=== PATIENT | female | born 1995 | race Caucasian/White ===

== ENCOUNTER 2016-11-20 14:48 | Emergency (ER) | payer OTHER ==
--- NOTE | 2016-11-20 15:23 | ER Document Report ---
ED Medical Screen (RME) - General Chief Complaint: Abdominal Pain Stated Complaint: ABDOMINAL PAIN Time seen by provider: 15:18 Mode of Arrival: Wheelchair Information source: Patient Notes: 21 yo female presents to ed for abdominal pain nausea vomiting and she is . LMP 09/28/16 TRAVEL OUTSIDE OF THE [place] IN LAST 30 DAYS: No - HPI Onset: Other - 3 days Onset/Duration: Persistent, Worse Quality of pain: Sharp Severity: Moderate Pain Level: 3 Associated Symptoms: Abdominal pain, Nausea, Vomiting, Other - , no urine or stool in 2 days Exacerbated by: Denies Relieved by: Denies Similar symptoms previously: Yes Recently seen / treated by doctor: No - Related Data Smoking: Non-smoker Frequency of alcohol use: None Drug Abuse: None Allergies/Adverse Reactions: Penicillins Allergy (Verified 09/12/15 01:20) Past Medical History Psychiatric Medical History: Reports: Hx Depression - and anxiety - Immunizations Hx Diphtheria, Pertussis, Tetanus Vaccination: Yes
[2016-11-20] MEDS ORDERED: NORMAL SALINE 1000 ML 1,000 ML IV PRN (15:24)
[2016-11-20] MEDS ORDERED: DIPHENHYDRAMINE HCL 50 MG/ML VIAL IV ONE ×2 (15:36→16:31)
[2016-11-20] MEDS ORDERED: METOCLOPRAMIDE HCL INJ/PF 10 MG/2 ML SDV IV ONE (15:36)
--- NOTE | 2016-11-20 15:42 | ER Document Report ---
ED GI/ - General Chief Complaint: Urinary Retention Stated Complaint: ABDOMINAL PAIN Mode of Arrival: Wheelchair Information source: Patient Notes: Patient presents stating that she is about 7 weeks . Patient states she 's had nausea and vomiting for the past week. Patient is uncertain how many times she has vomited today due to the number. Patient states she has had some blood in her emesis. Patient complains of lower abdominal pain for the past 3 days. Patient denies any fever, diarrhea, or urinary symptoms. Patient denies any vaginal bleeding. Patient states she's had no urine output for the past 2 days due to inability to keep fluids down orally. TRAVEL OUTSIDE OF THE [place] IN LAST 30 DAYS: No - HPI Patient complains to provider of: Pelvic pain, . No: Vaginal bleeding Onset: Last week Timing/Duration: Persistent Quality of pain: Cramping Pain Level: 3 Location: Pelvis Vaginal bleeding (Compared to normal period): None Sexual history: Active Associated symptoms: Loss of appetite, Nausea, Vomiting. denies: Chest pain, Dysuria, Fever, Urinary hesitancy, Urinary frequency, Urinary retention, Urinary urgency Exacerbated by: Denies Relieved by: Denies Similar symptoms previously: Yes Recently seen / treated by doctor: No - Related Data Allergies/Adverse Reactions: Penicillins Allergy (Verified 11/20/16 15:21) Past Medical History - General Information source: Patient Last Menstrual Period: 09/28/16 - Social History Smoking Status: Never Smoker Chew tobacco use (# tins/day): No Frequency of alcohol use: None Drug Abuse: None Occupation: none Lives with: Family Family History: Reviewed & Not Pertinent Patient has suicidal ideation: No Patient has homicidal ideation: No Psychiatric Medical History: Reports: Hx Anxiety, Hx Depression - and anxiety Surgical Hx: Negative - Immunizations Hx Diphtheria, Pertussis, Tetanus Vaccination: Yes Review of Systems - Review of Systems Constitutional: No symptoms reported. denies: Recent illness EENT: No symptoms reported Cardiovascular: No symptoms reported. denies: Chest pain Respiratory: No symptoms reported. denies: Cough, Short of breath Gastrointestinal: Abdominal pain, Nausea, Vomiting, Poor fluid intake, Blood in vomit. denies: Diarrhea Genitourinary: Other - Decreased urine output. denies: Dysuria, Flank pain Female Genitourinary: . denies: Vaginal bleeding Musculoskeletal: No symptoms reported. denies: Back pain, Muscle pain, Neck pain Skin: No symptoms reported Hematologic/Lymphatic: No symptoms reported Neurological/Psychological: No symptoms reported Physical Exam - Vital signs Vitals: Temp Pulse Resp BP Pulse Ox 98.3 F 120 H 20 135/75 H 100 11/20/16 15:21 11/20/16 15:21 11/20/16 15:21 11/20/16 15:21 11/20/16 15:21 Interpretation: No: Tachycardic Notes: apical pulse 100 - General General appearance: Appears well, Alert In distress: None - HEENT Head: Normocephalic, Atraumatic Eyes: Normal Nasal: Normal Mouth/Lips: Normal Mucous membranes: Dry Neck: Normal, Supple - Respiratory Respiratory status: No respiratory distress Chest status: Nontender Breath sounds: Normal. No: Rales, Rhonchi, Stridor, Wheezing Chest palpation: Normal - Cardiovascular Rhythm: Regular - Apical pulse 100 Heart sounds: S1 appreciated, S2 appreciated Murmur: No - Abdominal Inspection: Normal Distension: No distension Bowel sounds: Normal Tenderness: Tender - Lower pelvic, worse to suprapubic area Organomegaly: No organomegaly - Back Back: Normal, Nontender. No: CVA tenderness - Extremities General upper extremity: Normal inspection, Normal ROM General lower extremity: Normal inspection, Normal ROM - Neurological Neuro grossly intact: Yes Cognition: Normal Angela Coma Scale Eye Opening: Spontaneous [place] Coma Scale Verbal: Oriented Angela Coma Scale Motor: Obeys Commands [place] Coma Scale Total: 15 - Psychological Associated symptoms: Normal affect, Normal mood - Skin Skin Temperature: Warm Skin Moisture: Dry Skin Color: Normal Course - Re-evaluation Re-evalutation: 11/20/16 16:35 Patient complains of feeling restless after receiving the nausea medication Reglan, patient advised that this can be a common adverse side effect of this medication. Additional Benadryl ordered for patient. 11/20/16 18:54 Patient has been sipping fluids at bedside. Patient denies any nausea at present. 11/20/16 19:00 Patient second liter of IV fluids infused. Patient's abdomen soft, no guarding. Discussed plan of care with patient, patient advised to [place] [facility] [place] of her subchorionic hemorrhage. Patient advised that she will need a repeat ultrasound to further monitor her abnormal ultrasound findings today. Discussed worsening signs or symptoms that patient should return immediately for. Patient advised to return for increased pain, fever, persistent vomiting, vaginal bleeding, or any concerning symptoms. 11/20/16 19:14 Upon patient's arrival to the room she was never tachycardic when pulse was measured apically. I do not suspect that patient's initial vital signs were accurate as her heart rate measured 100 bpm prior to receiving any IV fluids. Patient is nontoxic in appearance, no concern for sepsis. - Vital Signs Vital signs: Temp Pulse Resp BP Pulse Ox 98.3 F 88 20 135/75 H 100 11/20/16 16:23 11/20/16 17:23 11/20/16 16:23 11/20/16 16:23 11/20/16 16:23 - Laboratory Result Diagrams: 11/20/16 16:15 11/20/16 16:15 Laboratory results interpreted by me: 11/20/16 11/20/16 11/20/16 16:15 16:15 16:15 Seg Neutrophils % 81.3 H Lymphocytes % 12.8 L Chloride 97 L Calcium 10.4 H Total Protein 8.7 H Beta HCG, Quant 023000.00 H Urine Protein 30 H Urine Ketones 80 H Urine Blood SMALL H Labs- Entire Visit 11/20/16 11/20/16 11/20/16 15:50 16:15 16:15 WBC 8.0 RBC 4.72 Hgb 15.0 Hct 42.4 MCV 90 MCH 31.7 MCHC 35.4 RDW 12.3 Plt Count 382 Seg Neutrophils % 81.3 H Lymphocytes % 12.8 L Monocytes % 5.4 Eosinophils % 0.1 Basophils % 0.4 Absolute Neutrophils 6.5 Absolute Lymphocytes 1.0 Absolute Monocytes 0.4 Absolute Eosinophils 0.0 Absolute Basophils 0.0 Sodium 139.9 Potassium 3.8 Chloride 97 L Carbon Dioxide 25 Anion Gap 18 BUN 12 Creatinine 0.76 Est GFR ( Amer) > 60 Est GFR (Non-Af Amer) > 60 Glucose 75 Lactic Acid Calcium 10.4 H Total Bilirubin 0.7 Direct Bilirubin 0.0 AST 24 ALT 29 Alkaline Phosphatase 61 Total Protein 8.7 H Albumin 4.9 Lipase 54.2 Beta HCG, Quant 544850.00 H Total Beta HCG POSITIVE Urine Color Urine Appearance Urine pH Ur Specific [place] Urine Protein Urine Glucose (UA) Urine Ketones Urine Blood Urine Nitrite Urine Bilirubin Urine Urobilinogen Ur Leukocyte Esterase Urine WBC (Auto) Urine RBC (Auto) Squamous Epi Cells Auto Urine Mucus (Auto) Urine Ascorbic Acid Blood Type A POSITIVE Rhogam Indicated RHOGAM NOT INDICATED 11/20/16 11/20/16 16:15 16:15 WBC RBC Hgb Hct MCV MCH MCHC RDW Plt Count Seg Neutrophils % Lymphocytes % Monocytes % Eosinophils % Basophils % Absolute Neutrophils Absolute Lymphocytes Absolute Monocytes Absolute Eosinophils Absolute Basophils Sodium Potassium Chloride Carbon Dioxide Anion Gap BUN Creatinine Est GFR ( Amer) Est GFR (Non-Af Amer) Glucose Lactic Acid 1.6 Calcium Total Bilirubin Direct Bilirubin AST ALT Alkaline Phosphatase Total Protein Albumin Lipase Beta HCG, Quant Total Beta HCG Urine Color YELLOW Urine Appearance SLIGHTLY-CLOUDY Urine pH 5.0 Ur Specific [place] 1.031 Urine Protein 30 H Urine Glucose (UA) NEGATIVE Urine Ketones 80 H Urine Blood SMALL H Urine Nitrite NEGATIVE Urine Bilirubin NEGATIVE Urine Urobilinogen NEGATIVE Ur Leukocyte Esterase NEGATIVE Urine WBC (Auto) 0 Urine RBC (Auto) 1 Squamous Epi Cells Auto <1 Urine Mucus (Auto) FEW Urine Ascorbic Acid NEGATIVE Blood Type Rhogam Indicated - Diagnostic Test Radiology reviewed: Reports reviewed Discharge - Discharge Clinical Impression: Intrauterine , Pelvic cramping, Dehydration Vomiting Qualifiers: Vomiting type: unspecified Vomiting Intractability: non-intractable Nausea presence: with nausea Qualified Code(s): R11.2 - Nausea with vomiting, unspecified Subchorionic bleed Qualifiers: Fetus number: fetus 1 of multiple gestation Trimester: first trimester Qualified Code(s): O41.8X11 - Other specified disorders of amniotic fluid and membranes, first trimester, fetus 1 Condition: Stable Disposition: HOME, SELF-CARE Instructions: Intravenous (IV) Fluids ([facility]), Vomiting ([facility]), Pelvic Pain in ([facility]), Dehydration ([facility]) Additional Instructions: Return immediately for any new or worsening symptoms: pain, fever, persistent vomiting, vaginal bleeding, or any concerning symptoms Followup with your primary care provider or [facility] provider, call tomorrow to make a followup appointment. Take Benadryl [id number] as directed to help with vomiting symptoms You will need to have repeat blood work and ultrasound to further evaluate subchorionic hemorrhage found on ultrasound. It is important that you establish care to have this followed. Referrals: [facility] [Provider Group] - Follow up as needed Jayden Valladares [facility] [Provider Group] - 11/23/16
[2016-11-20 16:55] LABS: ABSOLUTE MONOCYTES (AUTO) 0.4 10^3/uL (0.1-1.4); ABSOLUTE NEUT (AUTO) 6.5 10^3/uL (1.7-8.2); BASOPHILS % (AUTO) 0.4 % (0-2); EOSINOPHILS % (AUTO) 0.1 % (0-6); HEMATOCRIT 42.4 % (36.0-47.0); HGB HCT DIFFERENCE 2.6; LYMPHOCYTES % (AUTO) 12.8 % (13-45); MEAN CORPUSCULAR HEMOGLOBIN 31.7 pg (27.0-33.4); MEAN CORPUSCULAR HGB CONC 35.4 g/dL (32.0-36.0); MEAN CORPUSCULAR VOLUME 90 fl (80-97); MONOCYTES % (AUTO) 5.4 % (3-13); RED BLOOD COUNT 4.72 10^6/uL (3.72-5.28); RED CELL DISTRIBUTION WIDTH 12.3 % (11.5-14.0); SEGMENTED NEUTROPHILS % (AUTO) 81.3 % (42-78)
[2016-11-20 17:02] LABS: APPEARANCE,URINE SLIGHTLY-CLOUDY; BILIRUBIN,URINE NEGATIVE (NEGATIVE); GLUCOSE, URINE NEGATIVE (NEGATIVE); KETONES,URINE 80 mg/dL (NEGATIVE); LEUKOCYTE ESTERASE,URINE NEGATIVE (NEGATIVE); NITRITE,URINE NEGATIVE (NEGATIVE); PROTEIN,URINE 30 mg/dL (NEGATIVE); URINE SPECIFIC GRAVITY 1.031; UROBILINOGEN,URINE NEGATIVE mg/dL (<2.0)
[2016-11-20 17:20] LABS: ALANINE AMINOTRANSFERASE 29 U/L (9-52); ALBUMIN 4.9 g/dL (3.5-5.0); ALKALINE PHOSPHATASE 61 U/L (38-126); ASPARTATE AMINO TRANSFERASE 24 U/L (14-36); BILIRUBIN,TOTAL 0.7 mg/dL (0.2-1.3); BLOOD UREA NITROGEN 12 mg/dL (7-20); CALCIUM 10.4 mg/dL (8.4-10.2); CREATININE RESULT 0.76 mg/dL (0.52-1.25); GLUCOSE 75 mg/dL (75-110); LIPASE 54.2 U/L (23-300); TOTAL PROTEIN 8.7 g/dL (6.3-8.2)
[2016-11-20 17:45] LABS: ANION GAP 18 (5-19); CARBON DIOXIDE 25 mmol/L (22-30); CHLORIDE 97 mmol/L (98-107); POTASSIUM 3.8 mmol/L (3.6-5.0); SODIUM 139.9 mmol/L (137-145)
[2016-11-20] MEDS ORDERED: ACETAMINOPHEN 325 MG TABLET PO ONE (19:05)
[2016-11-20 19:19] VITALS: BP 121/60
== END 2016-11-20 19:20 | disposition home or self-care (01) ==
LOC: ER 14:48
DX: O99.611 Diseases of the digestive system complicating pregnancy, first trimester (principal); K92.0 Hematemesis; O20.8 Other hemorrhage in early pregnancy; O26.891 Other specified pregnancy related conditions, first trimester; R10.2 Pelvic and perineal pain; R63.0 Anorexia; O99.281 Endocrine, nutritional and metabolic diseases complicating pregnancy, first trimester; E86.0 Dehydration; Z3A.01 Less than 8 weeks gestation of pregnancy; Z88.0 Allergy status to penicillin
CPT/HCPCS: 99284; 96361; 51701; 96374; 96375; 86900; 86901; 36415; 87086; 84702; 83690; 85025; 80053; 81001; 83605; 76817; J1200; J2765; J7030

== ENCOUNTER 2016-12-23 20:22 | Emergency (ER) | payer OTHER, MEDICAID ==
[2016-12-23] MEDS ORDERED: PROMETHAZINE HCL 25 MG SUPP.RECT PR ONE (21:26)
--- NOTE | 2016-12-23 21:28 | ER Document Report ---
ED Medical Screen (RME) - General Stated Complaint: ABDOMINAL PAIN,VOMITING Notes: 21 yo female 12 weeks gestation, c/o vomiting x 2 days. not tolerating any po. no vaginal bleeding. + abdominal pain but is more abdominal wall soreness from vomiting pt actively vomiting. HR 140. TRAVEL OUTSIDE OF THE [place] IN LAST 30 DAYS: No - Related Data Allergies/Adverse Reactions: Penicillins Allergy (Verified 12/23/16 21:25) Past Medical History Psychiatric Medical History: Reports: Hx Anxiety, Hx Depression - and anxiety - Immunizations Hx Diphtheria, Pertussis, Tetanus Vaccination: Yes Physical Exam - Vital signs Vitals: Temp Pulse Resp BP 98.2 F 140 H 18 139/88 H 12/23/16 21:17 12/23/16 21:17 12/23/16 21:17 12/23/16 21:17 Course - Vital Signs Vital signs: Temp Pulse Resp BP Pulse Ox 98.2 F 140 H 18 139/88 H 12/23/16 21:17 12/23/16 21:17 12/23/16 21:17 12/23/16 21:17
[2016-12-23 21:52] LABS: ABSOLUTE LYMPHOCYTES (AUTO) 1.2 10^3/uL (0.5-4.7); ABSOLUTE MONOCYTES (AUTO) 0.4 10^3/uL (0.1-1.4); BASOPHILS % (AUTO) 0.3 % (0-2); EOSINOPHILS % (AUTO) 0.1 % (0-6); HEMATOCRIT 41.8 % (36.0-47.0); HEMOGLOBIN 14.9 g/dL (12.0-15.5); HGB HCT DIFFERENCE 2.9; LYMPHOCYTES % (AUTO) 10.1 % (13-45); MEAN CORPUSCULAR HEMOGLOBIN 31.4 pg (27.0-33.4); MEAN CORPUSCULAR HGB CONC 35.6 g/dL (32.0-36.0); MEAN CORPUSCULAR VOLUME 88 fl (80-97); MONOCYTES % (AUTO) 3.7 % (3-13); RED BLOOD COUNT 4.74 10^6/uL (3.72-5.28); RED CELL DISTRIBUTION WIDTH 12.6 % (11.5-14.0); SEGMENTED NEUTROPHILS % (AUTO) 85.8 % (42-78); WHITE BLOOD COUNT 11.7 10^3/uL (4.0-10.5)
[2016-12-23 22:21] LABS: ALANINE AMINOTRANSFERASE 25 U/L (9-52); ALBUMIN 5.1 g/dL (3.5-5.0); ALKALINE PHOSPHATASE 67 U/L (38-126); ASPARTATE AMINO TRANSFERASE 21 U/L (14-36); BILIRUBIN,TOTAL 0.7 mg/dL (0.2-1.3); BLOOD UREA NITROGEN 11 mg/dL (7-20); CALCIUM 10.7 mg/dL (8.4-10.2); CHLORIDE 99 mmol/L (98-107); GLUCOSE 102 mg/dL (75-110); POTASSIUM 3.9 mmol/L (3.6-5.0); TOTAL PROTEIN 8.1 g/dL (6.3-8.2)
[2016-12-23 22:47] LABS: ANION GAP 21 (5-19); CARBON DIOXIDE 17 mmol/L (22-30); SODIUM 136.6 mmol/L (137-145)
[2016-12-24] MEDS ORDERED: NORMAL SALINE 1000 ML 2,000 ML IV ONE (01:34)
[2016-12-24 01:38] LABS: APPEARANCE,URINE SLIGHTLY-CLOUDY; BILIRUBIN,URINE NEGATIVE (NEGATIVE); GLUCOSE, URINE NEGATIVE (NEGATIVE); KETONES,URINE 80 mg/dL (NEGATIVE); LEUKOCYTE ESTERASE,URINE NEGATIVE (NEGATIVE); NITRITE,URINE NEGATIVE (NEGATIVE); PROTEIN,URINE 100 mg/dL (NEGATIVE); URINE SPECIFIC GRAVITY 1.029; UROBILINOGEN,URINE NEGATIVE mg/dL (<2.0)
--- NOTE | 2016-12-24 02:35 | ER Document Report ---
ED General - General Chief Complaint: Abdominal Pain Stated Complaint: ABDOMINAL PAIN,VOMITING Notes: Patient is a 21-year-old female currently 12 weeks who presents with 2 days of persistent vomiting and difficulty tolerating oral intake. States that she's been trying vitamin B 6, doxylamine, and Phenergan at home with minimal improvement of her symptoms. She's been seen in the emergency room on several prior occasions for similar symptoms. She has not seen her primary [facility] TE[facility] regarding today's concerns. Denies any bilious or bloody vomitus. She also complains of a diffuse, constant, generalized abdominal cramping. Improves or worsens his pain. Denies any vaginal bleeding or discharge. No diarrhea. No known sick contacts. Denies any dysuria TRAVEL OUTSIDE OF THE [place] IN LAST 30 DAYS: No - Related Data Allergies/Adverse Reactions: Penicillins Allergy (Verified 12/23/16 21:25) Past Medical History - General Information source: Patient - Social History Smoking Status: Never Smoker Frequency of alcohol use: None Drug Abuse: None Lives with: Spouse/Significant other Family History: Reviewed & Not Pertinent Patient has suicidal ideation: No Patient has homicidal ideation: No Renal/ Medical History: Denies: Hx Peritoneal Dialysis Psychiatric Medical History: Reports: Hx Anxiety, Hx Depression - and anxiety - Immunizations Hx Diphtheria, Pertussis, Tetanus Vaccination: Yes Review of Systems - Review of Systems Notes: Constitutional: Negative for fever. HENT: Negative for sore throat. Eyes: Negative for visual changes. Cardiovascular: Negative for chest pain. Respiratory: Negative for shortness of breath. Gastrointestinal: Positive for abdominal pain and vomiting Genitourinary: Negative for dysuria. Musculoskeletal: Negative for back pain. Skin: Negative for rash. Neurological: Negative for headaches, weakness or numbness. 10 point ROS negative except as marked above and in HPI. Physical Exam - Vital signs Vitals: Temp Pulse Resp BP 98.2 F 140 H 18 139/88 H 12/23/16 21:17 12/23/16 21:17 12/23/16 21:17 12/23/16 21:17 Interpretation: Tachycardic Notes: PHYSICAL EXAMINATION: GENERAL: Appears mildly uncomfortable but in no acute distress. HEAD: Atraumatic, normocephalic. EYES: Pupils equal round and reactive to light, extraocular movements intact, sclera anicteric, conjunctiva are normal. ENT: nares patent, oropharynx clear without exudates. Moist mucous membranes. NECK: Normal range of motion, supple without lymphadenopathy LUNGS: Breath sounds clear to auscultation bilaterally and equal. No wheezes rales or rhonchi. HEART: Regular tachycardia without murmurs ABDOMEN: Soft, nontender, normoactive bowel sounds. No guarding, no rebound. No masses appreciated. EXTREMITIES: Normal range of motion, no pitting or edema. No cyanosis. NEUROLOGICAL: No focal neurological deficits. Moves all extremities spontaneously and on command. PSYCH: Normal mood, normal affect. SKIN: Warm, Dry, normal turgor, no rashes or lesions noted. Course - Re-evaluation Re-evalutation: 12/24/16 02:37 Patient presents with persistent vomiting during . Vitals at time of arrival to show significant tachycardia which is improved at the time my assessment. Laboratories reveal a normal creatinine and but do show the patient was significantly dehydrated at time of arrival. Patient was able to tolerate oral intake here in the emergency department. IV fluids were provided. Bedside ultrasound shows appropriate heart rate for gestational age with active movement. No vaginal bleeding or discharge. Based on abdominal exam, vitals and history I do not suspect an acute appendicitis, cholestasis of , acute cholecystitis, pancreatitis, or bowel obstruction. Patient will be started on a combination of doxylamine and vitamin B6. At this time will discharge with return precautions and follow-up recommendations. Verbal discharge instructions given a the bedside and opportunity for questions given. Medication warnings reviewed. Patient is in agreement with this plan and has verbalized understanding of return precautions and the need for primary care follow-up in the next 24-72 hours. - Vital Signs Vital signs: Temp Pulse Resp BP Pulse Ox 98.2 F 140 H 18 139/88 H 97 12/23/16 21:23 12/23/16 21:23 12/23/16 21:23 12/23/16 21:23 12/23/16 21:23 - Laboratory Result Diagrams: 12/23/16 21:37 12/23/16 21:37 Laboratory results interpreted by me: 12/23/16 12/23/16 12/24/16 21:37 21:37 00:50 WBC 11.7 H Plt Count 470 H Seg Neutrophils % 85.8 H Lymphocytes % 10.1 L Absolute Neutrophils 10.0 H Sodium 136.6 L Carbon Dioxide 17 L Anion Gap 21 H Calcium 10.7 H Albumin 5.1 H Urine Protein 100 H Urine Ketones 80 H Urine HCG, Qual 12/24/16 00:50 WBC Plt Count Seg Neutrophils % Lymphocytes % Absolute Neutrophils Sodium Carbon Dioxide Anion Gap Calcium Albumin Urine Protein Urine Ketones Urine HCG, Qual POSITIVE H Discharge - Discharge Clinical Impression: Hyperemesis affecting , antepartum Condition: Good Disposition: HOME, SELF-CARE Additional Instructions: You have been seen for vomiting during . You should continue to drink plenty of water and consider taking a solution such as Pedialyte if your having difficulty eating food. Please return if you become unable to drink any fluids for more than 12 hours, urinate less than twice a day, pass out, or have any other symptoms that are concerning to you. For nausea and vomiting during I recomment: Start with 10-12.5 mg of pyridoxine (vitamin B6) three times a day for 2 days. If not fully effective, Increase to 12.5 mg of pyridoxine four times a day for 2 days. If not fully effective, Increase to 25 mg of pyridoxine three times a day for 2 days. If not fully effective, Continue 25 mg pyridoxine 3 times a day, and add 12.5 mg of doxylamine before bedtime each day for 2 days. If not fully effective, Continue 25 mg pyridoxine 3 times a day, and take 12.5 mg of doxylamine twice a day. If not fully effective, Continue 25 mg pyridoxine 3 times a day, and take 12.5 mg of doxylamine three times a day. If not fully effective, Continue 25 mg pyridoxine 3 times a day, and 12.5 mg of doxylamine 3 times a day , while adding Emetrol, one to two tablespoons (15-30 cc) taken once or twice a day as needed. (Emetrol is an [id number] mixture of sugar syrups and phosphoric acid [phosphorylated carbohydrate solution]) that acts by soothing the actual wall of the gastrointestinal tract). If not fully effective, Consult with your doctor. Referrals: GABI LUCIO MD [Primary Care Provider] - Follow up as needed
[2016-12-24] MEDS ORDERED: ONDANSETRON HCL INJ/PF 4 MG/2 ML SDV IV ONE (02:55)
[2016-12-24 04:01] VITALS: BP 126/67
== END 2016-12-24 04:02 | disposition home or self-care (01) ==
LOC: ER 20:22
DX: O21.1 Hyperemesis gravidarum with metabolic disturbance (principal); O26.891 Other specified pregnancy related conditions, first trimester; R10.84 Generalized abdominal pain; R00.0 Tachycardia, unspecified; Z3A.12 12 weeks gestation of pregnancy
CPT/HCPCS: 99284; 96361; 96374; 36415; 85025; 81025; 80053; 81001; J3490; J2405; J7030

== ENCOUNTER 2017-01-01 23:50 | Emergency (ER) | payer OTHER, MEDICAID ==
[2017-01-02] MEDS ORDERED: METOCLOPRAMIDE HCL INJ/PF 10 MG/2 ML SDV IM ONE (00:09)
[2017-01-02] MEDS ORDERED: NORMAL SALINE 1000 ML 1,000 ML IV PRN (00:10)
--- NOTE | 2017-01-02 00:11 | ER Document Report ---
ED Medical Screen (RME) - General Chief Complaint: Vomiting Stated Complaint: VOMITING Time seen by provider: 00:07 Mode of Arrival: Ambulatory Information source: Patient Notes: 21-year-old female presents to ED for nausea and vomiting she is 13 weeks and has been taken Phenergan suppositories for the nausea and vomiting which are not helping her. I have greeted and performed a rapid initial assessment of this patient. A comprehensive ED assessment and evaluation of the patient, analysis of test results and completion of medical decision making process will be conducted by an additional ED providers. TRAVEL OUTSIDE OF THE [place] IN LAST 30 DAYS: No - Related Data Allergies/Adverse Reactions: Penicillins Allergy (Verified 01/02/17 00:10) Past Medical History Renal/ Medical History: Denies: Hx Peritoneal Dialysis Psychiatric Medical History: Reports: Hx Anxiety, Hx Depression - and anxiety - Immunizations Hx Diphtheria, Pertussis, Tetanus Vaccination: Yes Physical Exam - Vital signs Vitals: Temp Pulse Resp BP Pulse Ox 98.1 F 144 H 20 147/104 H 99 01/01/17 23:58 01/01/17 23:58 01/01/17 23:58 01/01/17 23:58 01/01/17 23:58 Course - Vital Signs Vital signs: Temp Pulse Resp BP Pulse Ox 98.1 F 144 H 20 147/104 H 99 01/01/17 23:58 01/01/17 23:58 01/01/17 23:58 01/01/17 23:58 01/01/17 23:58
[2017-01-02 05:00] LABS: HEMATOCRIT 38.2 % (36.0-47.0); HEMOGLOBIN 13.6 g/dL (12.0-15.5); HGB HCT DIFFERENCE 2.6; MEAN CORPUSCULAR HEMOGLOBIN 31.7 pg (27.0-33.4); MEAN CORPUSCULAR HGB CONC 35.6 g/dL (32.0-36.0); MEAN CORPUSCULAR VOLUME 89 fl (80-97); RED BLOOD COUNT 4.29 10^6/uL (3.72-5.28); RED CELL DISTRIBUTION WIDTH 12.9 % (11.5-14.0); WHITE BLOOD COUNT 10.6 10^3/uL (4.0-10.5)
[2017-01-02] MEDS ORDERED: ACETAMINOPHEN 650 MG SUPP.RECT PR ONE (05:06)
[2017-01-02] MEDS ORDERED: DIPHENHYDRAMINE HCL 50 MG CAPSULE PO ONE (05:06)
[2017-01-02] MEDS ORDERED: METOCLOPRAMIDE HCL 10 MG TABLET PO ONE (05:06)
[2017-01-02 05:11] LABS: ALANINE AMINOTRANSFERASE 20 U/L (9-52); ALBUMIN 4.9 g/dL (3.5-5.0); ALKALINE PHOSPHATASE 72 U/L (38-126); ANION GAP 17 (5-19); ASPARTATE AMINO TRANSFERASE 20 U/L (14-36); BILIRUBIN,TOTAL 0.5 mg/dL (0.2-1.3); BLOOD UREA NITROGEN 6 mg/dL (7-20); CALCIUM 10.5 mg/dL (8.4-10.2); CARBON DIOXIDE 20 mmol/L (22-30); CHLORIDE 103 mmol/L (98-107); CREATININE RESULT 0.59 mg/dL (0.52-1.25); GLUCOSE 139 mg/dL (75-110); POTASSIUM 3.8 mmol/L (3.6-5.0); SODIUM 139.7 mmol/L (137-145); TOTAL PROTEIN 7.8 g/dL (6.3-8.2)
[2017-01-02 05:15] LABS: BASOPHILS % (MANUAL) 0 % (0-2); EOSINOPHILS % (MANUAL) 0 % (0-6); LYMPHOCYTES % (MANUAL) 2 % (13-45); TOTAL CELLS COUNTED 100; TOXIC GRANULATION SLIGHT; TOXIC VACUOLATION PRESENT
[2017-01-02 05:16] LABS: RBC MORPHOLOGY COMMENT NORMO-CYTIC/CHROMIC
--- NOTE | 2017-01-02 05:18 | ER Document Report ---
ED GI/ - General Time seen by provider: 05:18 Mode of Arrival: Ambulatory Information source: Patient TRAVEL OUTSIDE OF THE [place] IN LAST 30 DAYS: No - HPI Patient complains to provider of: , Other - Nausea and vomiting Onset: Other - Throughout her today she is just not to be anything down Timing/Duration: Intermittent Quality of pain: Achy Severity at maximum: Mild Severity in ED: Mild Pain Level: 2 - Her pain is mild but her nausea and vomiting is making her feel miserable Vaginal bleeding (Compared to normal period): None Menstrual period history: LMP: 13 weeks Associated symptoms: Nausea, Vomiting, Other - Hyperemesis gravidarum Exacerbated by: Denies Relieved by: Denies Similar symptoms previously: Yes Recently seen / treated by doctor: Yes <MICHELLE FERGUSON - Last Filed: 01/02/17 07:14> <KENDALL TSE - Last Filed: 01/02/17 10:13> - General Chief Complaint: Nausea/Vomiting Stated Complaint: VOMITING Notes: 21-year-old female presents to ED for nausea and vomiting during . She states she cannot keep any food or fluids down. States she has a history of hyperemesis gravidarum and has been in to get IV fluids and nausea medicine before. States she cannot take IV Reglan and Benadryl together because it makes her extremely anxious and jittery. (MICHELLE FERGUSON) - Related Data Allergies/Adverse Reactions: Penicillins Allergy (Verified 01/02/17 00:10) Past Medical History - General Information source: Patient - Social History Smoking Status: Never Smoker Cigarette use (# per day): No Chew tobacco use (# tins/day): No Smoking Education Provided: No Frequency of alcohol use: None Drug Abuse: None Occupation: none Lives with: Parents Family History: Arthritis, Thyroid Disfunction Patient has suicidal ideation: No Patient has homicidal ideation: No - Past Medical History Cardiac Medical History: Reports: None Pulmonary Medical History: Reports: None EENT Medical History: Reports: None Neurological Medical History: Reports: None Endocrine Medical History: Reports: None Renal/ Medical History: Reports: None Malignancy Medical History: Reports: None GI Medical History: Reports: None Musculoskeltal Medical History: Reports Hx Musculoskeletal Trauma - Multiple fractures ankles wrist ribs knee and elbow Skin Medical History: Reports None Psychiatric Medical History: Reports: Hx Anxiety, Hx Depression - and anxiety Traumatic Medical History: Reports: Hx Fractures - Ankles knee wrist elbow ribs Infectious Medical History: Reports: None Surgical Hx: Negative Past Surgical History: Reports: None - Immunizations Immunizations up to date: Yes Hx Diphtheria, Pertussis, Tetanus Vaccination: Yes <MICHELLE FERGUSON Last Filed: 01/02/17 07:14> Review of Systems - Review of Systems Constitutional: No symptoms reported EENT: No symptoms reported Cardiovascular: No symptoms reported Respiratory: No symptoms reported Gastrointestinal: Nausea, Vomiting Genitourinary: No symptoms reported Female Genitourinary: No symptoms reported Musculoskeletal: No symptoms reported Skin: No symptoms reported Hematologic/Lymphatic: No symptoms reported Neurological/Psychological: Anxiety -: Yes All other systems reviewed and negative <MICHELLE FERGUSON Last Filed: 01/02/17 07:14> Physical Exam - Vital signs Interpretation: Normal - General General appearance: Appears well, Alert - HEENT Head: Normocephalic, Atraumatic Eyes: Normal Pupils: PERRL Ears: Normal External canal: Normal Tympanic membrane: Normal Sinus: Normal Nasal: Normal Mouth/Lips: Normal Mucous membranes: Normal Pharynx: Normal Neck: Normal - Respiratory Respiratory status: No respiratory distress Chest status: Nontender Breath sounds: Normal Chest palpation: Normal - Cardiovascular Rhythm: Regular Heart sounds: Normal auscultation Murmur: No - Abdominal Inspection: Normal Distension: No distension Bowel sounds: Hyperactive Tenderness: Nontender Organomegaly: No organomegaly - Back Back: Normal, Nontender - Extremities General upper extremity: Normal inspection, Nontender, Normal color, Normal ROM , Normal temperature General lower extremity: Normal inspection, Nontender, Normal color, Normal ROM , Normal temperature, Normal weight bearing. No: Eduar's sign - Neurological Neuro grossly intact: Yes Cognition: Normal Orientation: AAOx4 [place] Coma Scale Eye Opening: Spontaneous [place] Coma Scale Verbal: Oriented [place] Coma Scale Motor: Obeys Commands [place] Coma Scale Total: 15 Speech: Normal Motor strength normal: LUE, RUE, LLE, RLE Sensory: Normal - Psychological Associated symptoms: Normal affect, Normal mood - Skin Skin Temperature: Warm Skin Moisture: Dry Skin Color: Normal <MICHELLE FERGUSON Last Filed: 01/02/17 07:14> Course - Laboratory Result Diagrams: 01/02/17 04:43 01/02/17 04:43 <MICHELLE FERGUSON - Last Filed: 01/02/17 07:14> - Laboratory Result Diagrams: 01/02/17 04:43 01/02/17 04:43 <KENDALL TSE - Last Filed: 01/02/17 10:13> - Re-evaluation Re-evalutation: 01/02/17 07:05 Patient has been vomiting throughout the whole night. She has been given Reglan by mouth in the RME and then given IV fluids Reglan and Benadryl by mouth in the emergency room as well as Tylenol suppository and she has continued to throw up. She been given 2 L of IV fluid normal saline as a bolus and then IV normal saline at 125 and has continued to vomit. She's been given vitamin B 6 IM and has decided that she would like to try Zofran for her nausea as she feels so miserable. After discussing risks and benefits of the Zofran patient has agreed that she would like to take it and has only been ordered 8 mg of Zofran IV. (MICHELLE FERGUSON) 01/02/17 09:23 Keeping by mouth's down I am treating for possible urinary tract infection with Macrobid. I added a urine culture. vitals stable. 01/02/17 10:11 (KENDALL TSE) - Vital Signs Vital signs: Temp Pulse Resp BP Pulse Ox 98.7 F 97 16 108/50 L 98 01/02/17 10:04 01/02/17 10:04 01/02/17 10:04 01/02/17 10:04 01/02/17 10:04 (MICHELLE FERGUSON) (KENDALL TSE) - Laboratory Laboratory results interpreted by me: 01/02/17 01/02/17 01/02/17 04:43 04:43 06:59 WBC 10.6 H Seg Neuts % (Manual) 97 H Lymphocytes % (Manual) 2 L Monocytes % (Manual) 1 L Abs Neuts (Manual) 10.3 H Abs Lymphs (Manual) 0.2 L Carbon Dioxide 20 L BUN 6 L Glucose 139 H Calcium 10.5 H Urine Protein 30 H Urine Ketones 80 H Ur Leukocyte Esterase SMALL H (MICHELLE FERGUSON) (KENDALL TSE) Discharge <MICHELLE FERGUSON - Last Filed: 01/02/17 07:14> <KENDALL TSE - Last Filed: 01/02/17 10:13> - Discharge Clinical Impression: Hyperemesis gravidarum Urinary tract infection Qualifiers: Urinary tract infection type: site unspecified Hematuria presence: without hematuria Qualified Code(s): N39.0 - Urinary tract infection, site not specified Condition: Stable Disposition: HOME, SELF-CARE Instructions: Vomiting ([facility]), Urinary Tract Infection ([facility]), ([facility]) Additional Instructions: Hyperemesis Gravidarum Hyperemesis gravidarum is the medical term for severe vomiting during . We don't know exactly why it occurs, but it's a common problem. Dehydration can occur. This reduces blood flow to the placenta, decreasing the baby's nourishment. The baby will also become dehydrated. There can be harmful changes in blood sodium, potassium, or acid balance. Our goal is to correct, and prevent, dehydration. For severe cases, we give IV fluids. Antinausea medication will be prescribed. (Don't be concerned about " defects" -- the risk to you and your baby from the hyperemesis is the biggest problem. The antinausea medication is very safe at this stage of .) Call the doctor if you have vaginal bleeding, abdominal pain, severe lightheadedness or weakness, or other alarming symptoms. Continue Phenergan suppositories as ordered by your RAILROAD SIGNAL OPERATOR. Please continue taking your vitamins if you cannot keep them down and tried plan stone vitamins but you need to take some kind of vitamin. Please try to have some fruits and vegetables in your diet. FOLLOW-UP CARE: If you have been referred to a physician for follow-up care, call the physician s office for an appointment as you were instructed or within the next two days. If you experience worsening or a significant change in your symptoms, notify the physician immediately or return to the Emergency Department at any time for re-evaluation. Prescriptions: Nitrofurantoin Monohyd/M-Cryst [Macrobid 100 mg Capsule] 100 mg PO BID #14 capsule
[2017-01-02] MEDS ORDERED: PYRIDOXINE HCL INJ 100 MG/1 ML VIAL IM ONE (06:30)
[2017-01-02] MEDS ORDERED: ONDANSETRON HCL INJ/PF 4 MG/2 ML SDV IV ONE (07:04)
[2017-01-02 07:30] LABS: APPEARANCE,URINE CLOUDY; BILIRUBIN,URINE NEGATIVE (NEGATIVE); GLUCOSE, URINE NEGATIVE (NEGATIVE); KETONES,URINE 80 mg/dL (NEGATIVE); LEUKOCYTE ESTERASE,URINE SMALL (NEGATIVE); NITRITE,URINE NEGATIVE (NEGATIVE); PROTEIN,URINE 30 mg/dL (NEGATIVE); URINE SPECIFIC GRAVITY 1.029; UROBILINOGEN,URINE NEGATIVE mg/dL (<2.0)
[2017-01-02] MEDS ORDERED: NORMAL SALINE 1000 ML 1,000 ML IV ONE (08:11)
[2017-01-02] MEDS ORDERED: NITROFURANTOIN MONOHYD/M-CRYST 100 MG CAPSULE PO ONE (08:11)
[2017-01-02] MEDS ORDERED: FAMOTIDINE 20 MG TABLET PO ONE (08:12)
[2017-01-02 10:05] VITALS: BP 108/50
== END 2017-01-02 10:53 | disposition home or self-care (01) ==
LOC: ER 23:50
DX: O21.0 Mild hyperemesis gravidarum (principal); O23.41 Unspecified infection of urinary tract in pregnancy, first trimester; Z3A.13 13 weeks gestation of pregnancy
CPT/HCPCS: 99284; 96372; 96374; 36415; 87086; 85025; 87088; 80053; 81001; J2765; J2405; J8499

== ENCOUNTER 2017-03-04 14:52 | Emergency (ER) | payer OTHER, MEDICAID ==
[2017-03-04 15:30] VITALS: BP 117/74
[2017-03-04] MEDS ORDERED: NORMAL SALINE 1000 ML 1,000 ML IV ONE (16:16)
--- NOTE | 2017-03-04 16:19 | ER Document Report ---
ED Medical Screen (RME) - General Stated Complaint: FALL/ABDOMINAL PAIN Notes: This 21-year-old female patient comes emergency room reporting that she passed out at 1 PM today she was in the kitchen eating. She reports her head hit the kitchen table. She complains of severe cramps without bleeding. She reports she has had at least 5 episodes of almost blacking out, but "really fell this time". She has discussed it with her DEVELOPMENT REPRESENTATIVE doctor who told her to go be seen immediately if it occurred again. I have greeted and performed a rapid initial assessment of this patient. A comprehensive ED assessment and evaluation of the patient, analysis of test results and completion of the medical decision making process will be conducted by additional ED providers. TRAVEL OUTSIDE OF THE [place] IN LAST 30 DAYS: No - Related Data Allergies/Adverse Reactions: Penicillins Allergy (Verified 01/02/17 00:10) Past Medical History Renal/ Medical History: Denies: Hx Peritoneal Dialysis Musculoskeltal Medical History: Reports Hx Musculoskeletal Trauma - Multiple fractures ankles wrist ribs knee and elbow Psychiatric Medical History: Reports: Hx Anxiety, Hx Depression - and anxiety Traumatic Medical History: Reports: Hx Fractures - Ankles knee wrist elbow ribs - Immunizations Immunizations up to date: Yes Hx Diphtheria, Pertussis, Tetanus Vaccination: Yes Physical Exam - Vital signs Vitals: Temp Pulse Resp BP Pulse Ox 98.1 F 92 16 117/74 100 03/04/17 15:23 03/04/17 15:23 03/04/17 15:23 03/04/17 15:23 03/04/17 15:23 Course - Vital Signs Vital signs: Temp Pulse Resp BP Pulse Ox 98.1 F 92 16 117/74 100 03/04/17 15:23 03/04/17 15:23 03/04/17 15:23 03/04/17 15:23 03/04/17 15:23
[2017-03-04 17:12] LABS: ABSOLUTE LYMPHOCYTES (AUTO) 1.7 10^3/uL (0.5-4.7); ABSOLUTE MONOCYTES (AUTO) 0.4 10^3/uL (0.1-1.4); ABSOLUTE NEUT (AUTO) 5.5 10^3/uL (1.7-8.2); BASOPHILS % (AUTO) 0.2 % (0-2); EOSINOPHILS % (AUTO) 0.3 % (0-6); HEMATOCRIT 35.7 % (36.0-47.0); HEMOGLOBIN 12.4 g/dL (12.0-15.5); HGB HCT DIFFERENCE 1.5; LYMPHOCYTES % (AUTO) 22.7 % (13-45); MEAN CORPUSCULAR HEMOGLOBIN 32.3 pg (27.0-33.4); MEAN CORPUSCULAR HGB CONC 34.6 g/dL (32.0-36.0); MEAN CORPUSCULAR VOLUME 93 fl (80-97); RED BLOOD COUNT 3.83 10^6/uL (3.72-5.28); RED CELL DISTRIBUTION WIDTH 13.1 % (11.5-14.0); SEGMENTED NEUTROPHILS % (AUTO) 71.8 % (42-78); WHITE BLOOD COUNT 7.6 10^3/uL (4.0-10.5)
[2017-03-04 17:28] LABS: ALANINE AMINOTRANSFERASE 21 U/L (9-52); ALKALINE PHOSPHATASE 64 U/L (38-126); ANION GAP 11 (5-19); ASPARTATE AMINO TRANSFERASE 18 U/L (14-36); BILIRUBIN,DIRECT 0.2 mg/dL (0.0-0.4); BILIRUBIN,TOTAL 0.5 mg/dL (0.2-1.3); BLOOD UREA NITROGEN 5 mg/dL (7-20); CALCIUM 9.9 mg/dL (8.4-10.2); CARBON DIOXIDE 25 mmol/L (22-30); CHLORIDE 103 mmol/L (98-107); CREATININE RESULT 0.56 mg/dL (0.52-1.25); GLUCOSE 81 mg/dL (75-110); SODIUM 139.4 mmol/L (137-145); TOTAL PROTEIN 6.9 g/dL (6.3-8.2)
[2017-03-04 17:48] LABS: APPEARANCE,URINE SLIGHTLY-CLOUDY; BILIRUBIN,URINE NEGATIVE (NEGATIVE); GLUCOSE, URINE NEGATIVE (NEGATIVE); KETONES,URINE NEGATIVE (NEGATIVE); LEUKOCYTE ESTERASE,URINE TRACE (NEGATIVE); NITRITE,URINE NEGATIVE (NEGATIVE); PROTEIN,URINE NEGATIVE (NEGATIVE); UROBILINOGEN,URINE NEGATIVE mg/dL (<2.0)
--- NOTE | 2017-03-04 20:01 | EKG REPORT ---
SEVERITY:- NORMAL ECG - SINUS RHYTHM : Confirmed by: Olga Gunter MD 04-Mar-2017 20:01:26
== END 2017-03-05 03:51 | disposition left against medical advice (07) ==
LOC: ER 14:52
DX: R10.9 Unspecified abdominal pain (principal); W19.XXXA Unspecified fall, initial encounter; R55 Syncope and collapse; Z88.0 Allergy status to penicillin; Z53.20 Procedure and treatment not carried out because of patient's decision for unspecified reasons
CPT/HCPCS: 36415; 80053; 81001; 85025; 93005; 93010; 99281

== ENCOUNTER 2017-03-05 17:10 | Outpatient (CLI) | payer OTHER, MEDICAID ==
--- NOTE | 2017-03-05 18:02 | L&D General Admission ---
General Admit Datetime Report Generated by CPN: 03/05/2017 18:00 INFORMATION Patient Age: 21 (03/05/2017 17:11:QS system process) CARE Height (in): 62 (03/05/2017 17:43:QS system process) ALLERGIES Medication Allergies: Penicillins (03/05/2017) (03/05/2017 17:39:QS system process) DEMOGRAPHICS Address: [address] [place] [id number] (03/05/2017 17:11:QS system process) Zipcode: [id number] (03/05/2017 17:11:QS system process) Home (03/05/2017 17:11:QS system process) SSN: [id number] (03/05/2017 17:11:QS system process) Next of Kin Name: GABI SOTO (03/05/2017 17:11:QS system process) Next of Kin (03/05/2017 17:11:QS system process) Next of Kin Relationship: MO (03/05/2017 17:11:QS system process) Date of : 1995 (03/05/2017 17:11:QS system process) Marital Status: Legally (03/05/2017 17:11:QS system process) Sex: Female (03/05/2017 17:11:QS system process) Race: (03/05/2017 17:11:QS system process) Ethnicity: Non- or (03/05/2017 17:11:QS system process) Zoroastrian: None (03/05/2017 17:11:QS system process)
[2017-03-05 18:17] LABS: APPEARANCE,URINE CLEAR; BILIRUBIN,URINE NEGATIVE (NEGATIVE); GLUCOSE, URINE NEGATIVE (NEGATIVE); KETONES,URINE NEGATIVE (NEGATIVE); LEUKOCYTE ESTERASE,URINE TRACE (NEGATIVE); NITRITE,URINE NEGATIVE (NEGATIVE); PROTEIN,URINE NEGATIVE (NEGATIVE); URINE SPECIFIC GRAVITY 1.009; UROBILINOGEN,URINE NEGATIVE mg/dL (<2.0)
[2017-03-05 18:24] LABS: AMNISURE (ROM) NEGATIVE (NEGATIVE)
[2017-03-05 18:29] LABS: URINE BARBITURATES SCREEN NEGATIVE; URINE METHADONE SCREEN NEGATIVE; URINE OPIATES LOW NEGATIVE; URINE PHENCYCLIDINE SCREEN NEGATIVE
--- NOTE | 2017-03-05 22:46 | Antepartum Discharge Summary ---
Antepartum DC Datetime Report Generated by CPN: 03/05/2017 22:45 DIET/ACTIVITY/RESTRICTIONS Diet: Regular (03/05/2017 18:41:Pippa Broman, RN) Activity: Normal Activity (03/05/2017 18:41:Pippa Broman, RN) TEACHING/INSTRUCTIONS/REFERRALS Instructions Given To: Patient (03/05/2017 18:41:Pippa Broman, RN) Instructions Understood: Patient Verbalized Understanding (03/05/2017 18:41:Pippa Broman, RN) Referrals: None (03/05/2017 18:41:Pippa Knox RN) Educational Materials- Other: [employer] (03/05/2017 18:41:Pippa Knox RN) DISCHARGE INFORMATION Discharged AMA: No (03/05/2017 18:41:Pippa Knox RN) Discharge Date/Time: 03/05/2017 18:44 (03/05/2017 18:41:Pippa Knox RN) Discharged To: Home (03/05/2017 18:41:Pippa Knox RN) Discharge Provider Name: Dr. Fuentes (03/05/2017 18:41:Pippa Knox RN) Accompanied By: Self (03/05/2017 18:41:Pippa Knox RN) Discharge Method: Ambulatory (03/05/2017 18:41:Pippa Knox RN) Condition: Stable (03/05/2017 18:41:Pippa Knox RN) FOLLOW UP INFORMATION Follow Up With: [facility] (03/05/2017 18:41:Pippa Knox RN) Follow Up On: As Scheduled (03/05/2017 18:41:Pippa Knox RN) Follow Up Phone Number: [facility] - (03/05/2017 18:41:Pippa Knox RN) GENERAL INSTR-CALL PROVIDER IF: Pressure: Pressure in your vagina or lower abdomen that may feel like the baby is pushing down (03/05/2017 18:41:Pippa Knox RN) Period Like Cramps: Period-like cramps or low dull backache that may come and go (03/05/2017 18:41:Pippa Knox RN) Cramps/Diarrhea: Abdominal cramps that may be accompanied by diarrhea (03/05/2017 18:41:Pippa Knox RN) Gush of Fluid/Blood: Gush of fluid or blood from your vagina (it is normal to have spotting after vaginal exam or intercourse) (03/05/2017 18:41:Pippa Knox RN) Vaginal Discharge: Change in the type or amount of vaginal discharge (03/05/2017 18:41:Pippa Knox RN) Decreased Movement: Your baby is not moving as much as usual- 4 movements in 1 hour after drinking and resting on side (03/05/2017 18:41:Pippa Knox RN) Temperature: Temperature greater than 100.0(F) orally (03/05/2017 18:41:Pippa Knox RN) Urinary Output: Decreased urinary output or dark colored urine (03/05/2017 18:41:Pippa Knox RN)
--- NOTE | 2017-03-05 22:46 | L&D Flow Sheet ---
LD Flowsheet Datetime Report Generated by CPN: 03/05/2017 22:45 Datetime: 03/05/2017 18:26 NBP Sys/Leyda/Mean (mmHg): 123 (QS system process) : 74 (QS system process) : 91 (QS system process) Pulse: 86 (QS system process) Communication LaborFlag: Labor (QS system process) Datetime: 03/05/2017 18:07 Uterine Activity Frequency (min): none (Pippa Broman, RN) Pain Pain Scale: 0 (Pippa Broman, RN) Pain Presence: None/Denies (Pippa Broman, RN) Pain Type: N/A (Pippa Broman, RN) Pain Relief Measures: Comfort Measures (Pippa Broman, RN) Vaginal Exam Vaginal Bleeding: None (Pippa Broman, RN) Maternal Assessment Level of Consciousness: Fully Conscious (Pippa Broman, RN) DTR's/Clonus: DTRs 2+; No Clonus (Pippa Broman, RN) Headache: Denies (Pippa Broman, RN) Breath Sounds, Left: Clear and Equal (Pippa Broman, RN) Breath Sounds, Right: Clear and Equal (Pippa Broman, RN) Nausea/Vomiting: Denies (Pippa Broman, RN) RUQ Epigastric Pain: Denies (Pippa Broman, RN) Communication LaborFlag: Labor (QS system process) Datetime: 03/05/2017 18:05 Assessment A Comments: monitor off due to extreme prematurity (Pippa Broman, RN) Datetime: 03/05/2017 17:55 NBP Sys/Leyda/Mean (mmHg): 118 (QS system process) : 67 (QS system process) : 86 (QS system process) Pulse: 85 (QS system process) Communication LaborFlag: Labor (QS system process) Datetime: 03/05/2017 17:00 Vital Signs Stage of : Labor (Pippa Broman, RN)
--- NOTE | 2017-03-05 22:46 | L&D Current Admission ---
Current Admit Datetime Report Generated by CPN: 03/05/2017 22:45 ADMISSION INFORMATION Chief Complaint: Suspected Rupture of Membranes (03/05/2017 18:07:Pippa Knox RN)
--- NOTE | 2017-03-05 22:46 | L&D General Admission ---
General Admit Datetime Report Generated by CPN: 03/05/2017 22:45 INFORMATION Patient Age: 21 (03/05/2017 17:11:QS system process) EDC: 07/05/2017 00:00 (03/05/2017 18:13:JEAN Vallecillo) EDC per Ultrasound: 07/05/2017 00:00 (03/05/2017 18:13:Pippa Knox RN) : 1 (03/05/2017 18:13:Pippa Knox RN) Para: 0 (03/05/2017 18:13:Pippa Knox RN) Baby, Number in Womb: 1 (03/05/2017 18:13:Pippa Knox RN) CARE Primary Vest Front Presser: [facility] (03/05/2017 18:13:Pippa Knox RN) Height (in): 62 (03/05/2017 17:43:QS system process) ALLERGIES Medication Allergies: Penicillins (03/05/2017) (03/05/2017 17:39:QS system process) Medication Allergies: Penicillins (03/04/2017) (03/05/2017 17:11:QS system process) DEMOGRAPHICS Address: [address] [place] [id number] (03/05/2017 17:11:QS system process) Zipcode: [id number] (03/05/2017 17:11:QS system process) Home (03/05/2017 17:11:QS system process) N: [id number] (03/05/2017 17:11:QS system process) Next of Kin Name: GABI SOTO (03/05/2017 17:11:QS system process) Next of Kin (03/05/2017 17:11:QS system process) Next of Kin Relationship: MO (03/05/2017 17:11:QS system process) Date of : 1995 (03/05/2017 17:11:QS system process) Marital Status: Legally (03/05/2017 17:11:QS system process) Sex: Female (03/05/2017 17:11:QS system process) Race: (03/05/2017 17:11:QS system process) Ethnicity: Non- or (03/05/2017 17:11:QS system process) Jew: None (03/05/2017 17:11:QS system process)
--- NOTE | 2017-03-05 22:47 | L&D Discharge Summary ---
OB Discharge Summary Datetime Report Generated by CPN: 03/05/2017 22:45 DISCHARGE DIAGNOSIS Diagnosis/Symptoms: Other Diagnoses/Symptoms Other: Membranes intact Treatment/Procedures Other: Amnisure Gestation: 22.4 Number of Babies in Womb: 1 Parity: 0 DIET/ACTIVITY/RESTRICTIONS Diet: Regular Activity: Normal Activity TEACHING/INSTRUCTIONS/REFERRALS Instructions Given To: Patient Instructions Understood: Patient Verbalized Understanding Referrals: None Educational Materials- Other: [employer] DISCHARGE INFORMATION Discharged AMA: No Discharge Date/Time: 03/05/2017 18:44 Discharged To: Home Discharge Provider Name: Dr. Fuentes Accompanied By: Self Discharge Method: Ambulatory Condition: Stable FOLLOW UP INFORMATION Follow Up With: [facility] Follow Up On: As Scheduled Follow Up Phone Number: [facility] - GENERAL INSTR-CALL PROVIDER IF: Pressure: Pressure in your vagina or lower abdomen that may feel like the baby is pushing down Period Like Cramps: Period-like cramps or low dull backache that may come and go Cramps/Diarrhea: Abdominal cramps that may be accompanied by diarrhea Gush of Fluid/Blood: Gush of fluid or blood from your vagina (it is normal to have spotting after vaginal exam or intercourse) Vaginal Discharge: Change in the type or amount of vaginal discharge Decreased Movement: Your baby is not moving as much as usual- 4 movements in 1 hour after drinking and resting on side Temperature: Temperature greater than 100.0(F) orally
--- NOTE | 2017-03-06 04:48 | L&D Current Admission ---
Current Admit Datetime Report Generated by CPN: 03/06/2017 04:45 ADMISSION INFORMATION Chief Complaint: Suspected Rupture of Membranes (03/05/2017 18:07:Pippa Knox RN)
--- NOTE | 2017-03-06 04:48 | L&D Discharge Summary ---
OB Discharge Summary Datetime Report Generated by CPN: 03/06/2017 04:45 DISCHARGE DIAGNOSIS Diagnosis/Symptoms: Other Diagnoses/Symptoms Other: Membranes intact Treatment/Procedures Other: Amnisure Gestation: 22.4 Number of Babies in Womb: 1 Parity: 0 DIET/ACTIVITY/RESTRICTIONS Diet: Regular Activity: Normal Activity TEACHING/INSTRUCTIONS/REFERRALS Instructions Given To: Patient Instructions Understood: Patient Verbalized Understanding Referrals: None Educational Materials- Other: [employer] DISCHARGE INFORMATION Discharged AMA: No Discharge Date/Time: 03/05/2017 18:44 Discharged To: Home Discharge Provider Name: Dr. Fuentes Accompanied By: Self Discharge Method: Ambulatory Condition: Stable FOLLOW UP INFORMATION Follow Up With: [facility] Follow Up On: As Scheduled Follow Up Phone Number: [facility] - GENERAL INSTR-CALL PROVIDER IF: Pressure: Pressure in your vagina or lower abdomen that may feel like the baby is pushing down Period Like Cramps: Period-like cramps or low dull backache that may come and go Cramps/Diarrhea: Abdominal cramps that may be accompanied by diarrhea Gush of Fluid/Blood: Gush of fluid or blood from your vagina (it is normal to have spotting after vaginal exam or intercourse) Vaginal Discharge: Change in the type or amount of vaginal discharge Decreased Movement: Your baby is not moving as much as usual- 4 movements in 1 hour after drinking and resting on side Temperature: Temperature greater than 100.0(F) orally
--- NOTE | 2017-03-06 04:48 | L&D Flow Sheet ---
LD Flowsheet Datetime Report Generated by CPN: 03/06/2017 04:45 Datetime: 03/05/2017 18:26 NBP Sys/Leyda/Mean (mmHg): 123 (QS system process) : 74 (QS system process) : 91 (QS system process) Pulse: 86 (QS system process) Communication LaborFlag: Labor (QS system process) Datetime: 03/05/2017 18:07 Uterine Activity Frequency (min): none (Pippa Broman, RN) Pain Pain Scale: 0 (Pippa Broman, RN) Pain Presence: None/Denies (Pippa Broman, RN) Pain Type: N/A (Pippa Broman, RN) Pain Relief Measures: Comfort Measures (Pippa Broman, RN) Vaginal Exam Vaginal Bleeding: None (Pippa Broman, RN) Maternal Assessment Level of Consciousness: Fully Conscious (Pippa Broman, RN) DTR's/Clonus: DTRs 2+; No Clonus (Pippa Broman, RN) Headache: Denies (Pippa Broman, RN) Breath Sounds, Left: Clear and Equal (Pippa Broman, RN) Breath Sounds, Right: Clear and Equal (Pippa Broman, RN) Nausea/Vomiting: Denies (Pippa Broman, RN) RUQ Epigastric Pain: Denies (Pippa Broman, RN) Communication LaborFlag: Labor (QS system process) Datetime: 03/05/2017 18:05 Assessment A Comments: monitor off due to extreme prematurity (Pippa Broman, RN) Datetime: 03/05/2017 17:55 NBP Sys/Leyda/Mean (mmHg): 118 (QS system process) : 67 (QS system process) : 86 (QS system process) Pulse: 85 (QS system process) Communication LaborFlag: Labor (QS system process) Datetime: 03/05/2017 17:00 Vital Signs Stage of : Labor (Pippa Broman, RN)
--- NOTE | 2017-03-06 04:48 | Antepartum Discharge Summary ---
Antepartum DC Datetime Report Generated by CPN: 03/06/2017 04:45 DIET/ACTIVITY/RESTRICTIONS Diet: Regular (03/05/2017 18:41:Pippa Broman, RN) Activity: Normal Activity (03/05/2017 18:41:Pippa Broman, RN) TEACHING/INSTRUCTIONS/REFERRALS Instructions Given To: Patient (03/05/2017 18:41:Pippa Broman, RN) Instructions Understood: Patient Verbalized Understanding (03/05/2017 18:41:Pippa Broman, RN) Referrals: None (03/05/2017 18:41:Pippa Knox RN) Educational Materials- Other: [employer] (03/05/2017 18:41:Pippa Knox RN) DISCHARGE INFORMATION Discharged AMA: No (03/05/2017 18:41:Pippa Knox RN) Discharge Date/Time: 03/05/2017 18:44 (03/05/2017 18:41:Pippa Knox RN) Discharged To: Home (03/05/2017 18:41:Pippa Knox RN) Discharge Provider Name: Dr. Fuentes (03/05/2017 18:41:Pippa Knox RN) Accompanied By: Self (03/05/2017 18:41:Pippa Knox RN) Discharge Method: Ambulatory (03/05/2017 18:41:Pippa Knox RN) Condition: Stable (03/05/2017 18:41:Pippa Knox RN) FOLLOW UP INFORMATION Follow Up With: [facility] (03/05/2017 18:41:Pippa Knox RN) Follow Up On: As Scheduled (03/05/2017 18:41:Pippa Knox RN) Follow Up Phone Number: [facility] - (03/05/2017 18:41:Pippa nKox RN) GENERAL INSTR-CALL PROVIDER IF: Pressure: Pressure in your vagina or lower abdomen that may feel like the baby is pushing down (03/05/2017 18:41:Pippa Knox RN) Period Like Cramps: Period-like cramps or low dull backache that may come and go (03/05/2017 18:41:Pippa Knox RN) Cramps/Diarrhea: Abdominal cramps that may be accompanied by diarrhea (03/05/2017 18:41:Pippa Knox RN) Gush of Fluid/Blood: Gush of fluid or blood from your vagina (it is normal to have spotting after vaginal exam or intercourse) (03/05/2017 18:41:Pippa Knox RN) Vaginal Discharge: Change in the type or amount of vaginal discharge (03/05/2017 18:41:Pippa Knox RN) Decreased Movement: Your baby is not moving as much as usual- 4 movements in 1 hour after drinking and resting on side (03/05/2017 18:41:Pippa Knox RN) Temperature: Temperature greater than 100.0(F) orally (03/05/2017 18:41:Pippa Knox RN) Urinary Output: Decreased urinary output or dark colored urine (03/05/2017 18:41:Pippa Knox RN)
--- NOTE | 2017-03-06 04:48 | L&D General Admission ---
General Admit Datetime Report Generated by CPN: 03/06/2017 04:45 INFORMATION Patient Age: 21 (03/05/2017 17:11:QS system process) EDC: 07/05/2017 00:00 (03/05/2017 18:13:JEAN Vallecillo) EDC per Ultrasound: 07/05/2017 00:00 (03/05/2017 18:13:Pippa Knox RN) : 1 (03/05/2017 18:13:Pippa Knox RN) Para: 0 (03/05/2017 18:13:Pippa Knox RN) Baby, Number in Womb: 1 (03/05/2017 18:13:Pippa Knox RN) CARE Primary Cleaner Wall: [facility] (03/05/2017 18:13:Pippa Knox RN) Height (in): 62 (03/05/2017 17:43:QS system process) ALLERGIES Medication Allergies: Penicillins (03/05/2017) (03/05/2017 17:39:QS system process) Medication Allergies: Penicillins (03/04/2017) (03/05/2017 17:11:QS system process) DEMOGRAPHICS Address: [address] [place] [id number] (03/05/2017 17:11:QS system process) Zipcode: [address] (03/05/2017 17:11:QS system process) Home (03/05/2017 17:11:QS system process) N: [phone] (03/05/2017 17:11:QS system process) Next of Kin Name: GABI SOTO (03/05/2017 17:11:QS system process) Next of Kin (03/05/2017 17:11:QS system process) Next of Kin Relationship: [place] (03/05/2017 17:11:QS system process) Date of : 1995 (03/05/2017 17:11:QS system process) Marital Status: Legally (03/05/2017 17:11:QS system process) Sex: Female (03/05/2017 17:11:QS system process) Race: (03/05/2017 17:11:QS system process) Ethnicity: Non- or (03/05/2017 17:11:QS system process) Rastafari: None (03/05/2017 17:11:QS system process)
--- NOTE | 2017-03-06 10:47 | Antepartum Discharge Summary ---
Antepartum DC Datetime Report Generated by CPN: 03/06/2017 10:45 DIET/ACTIVITY/RESTRICTIONS Diet: Regular (03/05/2017 18:41:Pippa Broman, RN) Activity: Normal Activity (03/05/2017 18:41:Pippa Broman, RN) TEACHING/INSTRUCTIONS/REFERRALS Instructions Given To: Patient (03/05/2017 18:41:Pippa Broman, RN) Instructions Understood: Patient Verbalized Understanding (03/05/2017 18:41:Pippa Broman, RN) Referrals: None (03/05/2017 18:41:Pippa Knox RN) Educational Materials- Other: [employer] (03/05/2017 18:41:Pippa Knox RN) DISCHARGE INFORMATION Discharged AMA: No (03/05/2017 18:41:Pippa Knox RN) Discharge Date/Time: 03/05/2017 18:44 (03/05/2017 18:41:Pippa Knox RN) Discharged To: Home (03/05/2017 18:41:Pippa Knox RN) Discharge Provider Name: Dr. Fuentes (03/05/2017 18:41:Pippa Knox RN) Accompanied By: Self (03/05/2017 18:41:Pippa Knox RN) Discharge Method: Ambulatory (03/05/2017 18:41:Pippa Knox RN) Condition: Stable (03/05/2017 18:41:Pippa Knox RN) FOLLOW UP INFORMATION Follow Up With: [facility] (03/05/2017 18:41:Pippa Knox RN) Follow Up On: As Scheduled (03/05/2017 18:41:Pippa Knox RN) Follow Up Phone Number: [facility] - (03/05/2017 18:41:Pippa Knox RN) GENERAL INSTR-CALL PROVIDER IF: Pressure: Pressure in your vagina or lower abdomen that may feel like the baby is pushing down (03/05/2017 18:41:Pippa Knox RN) Period Like Cramps: Period-like cramps or low dull backache that may come and go (03/05/2017 18:41:Pippa Knox RN) Cramps/Diarrhea: Abdominal cramps that may be accompanied by diarrhea (03/05/2017 18:41:Pippa Knox RN) Gush of Fluid/Blood: Gush of fluid or blood from your vagina (it is normal to have spotting after vaginal exam or intercourse) (03/05/2017 18:41:Pippa Knox RN) Vaginal Discharge: Change in the type or amount of vaginal discharge (03/05/2017 18:41:Pippa Knox RN) Decreased Movement: Your baby is not moving as much as usual- 4 movements in 1 hour after drinking and resting on side (03/05/2017 18:41:Pippa Knox RN) Temperature: Temperature greater than 100.0(F) orally (03/05/2017 18:41:Pippa Knox RN) Urinary Output: Decreased urinary output or dark colored urine (03/05/2017 18:41:Pippa Knox RN)
--- NOTE | 2017-03-06 10:47 | L&D General Admission ---
General Admit Datetime Report Generated by CPN: 03/06/2017 10:45 INFORMATION Patient Age: 21 (03/05/2017 17:11:QS system process) EDC: 07/05/2017 00:00 (03/05/2017 18:13:JEAN Vallecillo) EDC per Ultrasound: 07/05/2017 00:00 (03/05/2017 18:13:Pippa Knox RN) : 1 (03/05/2017 18:13:Pippa Knox RN) Para: 0 (03/05/2017 18:13:Pippa Knox RN) Baby, Number in Womb: 1 (03/05/2017 18:13:Pippa Knox RN) CARE Primary Automotive Tire Technician: [facility] (03/05/2017 18:13:Pippa Knox RN) Height (in): 62 (03/05/2017 17:43:QS system process) ALLERGIES Medication Allergies: Penicillins (03/05/2017) (03/05/2017 17:39:QS system process) Medication Allergies: Penicillins (03/04/2017) (03/05/2017 17:11:QS system process) DEMOGRAPHICS Address: [address] [place] [id number] (03/05/2017 17:11:QS system process) Zipcode: [id number] (03/05/2017 17:11:QS system process) Home (03/05/2017 17:11:QS system process) N: [id number] (03/05/2017 17:11:QS system process) Next of Kin Name: GABI SOTO (03/05/2017 17:11:QS system process) Next of Kin (03/05/2017 17:11:QS system process) Next of Kin Relationship: [place] (03/05/2017 17:11:QS system process) Date of : 1995 (03/05/2017 17:11:QS system process) Marital Status: Legally (03/05/2017 17:11:QS system process) Sex: Female (03/05/2017 17:11:QS system process) Race: (03/05/2017 17:11:QS system process) Ethnicity: Non- or (03/05/2017 17:11:QS system process) Congregational: None (03/05/2017 17:11:QS system process)
--- NOTE | 2017-03-06 10:47 | L&D Admission Assessment ---
LD ADM ASMT Datetime Report Generated by CPN: 03/06/2017 10:45 PATIENT ASSESSMENT Assessment Type: Triage (03/05/2017 18:07:Pippa Broman, RN) WEIGHT Weight (lb): 114 (03/05/2017 17:43:QS system process) Weight (kg): 51.8 (03/05/2017 17:43:QS system process) PAIN Pain Scale: 0 (03/05/2017 18:07:Pippa Broman, RN) Pain Presence: None/Denies (03/05/2017 18:07:Pippa Broman, RN) Pain Type: N/A (03/05/2017 18:07:Pippa Broman, RN) CONTRACTIONS Frequency (min): none (03/05/2017 18:07:Pippa Broman, RN) NEURO Level of Consciousness: Fully Conscious (03/05/2017 18:07:Pippa Broman, RN) DTR's/Clonus: DTRs 2+; No Clonus (03/05/2017 18:07:Pippa Knox RN) Headache: Denies (03/05/2017 18:07:Pippa Knox RN) Dizziness: No (03/05/2017 18:07:Pippa Knox RN) Blurred Vision: No (03/05/2017 18:07:Pippa Knox RN) Extremity Numbness/Tingling : None (03/05/2017 18:07:Pippa Knox RN) Extremity Movement: Full Range of Motion (03/05/2017 18:07:Pippa Knox RN) CARDIOVASCULAR Heart Rhythm: Regular (03/05/2017 18:07:Pippa Knox RN) Nailbeds: [place] (03/05/2017 18:07:Pippa Knox RN) Capillary Refill: Less than 3 Seconds (03/05/2017 18:07:Pippa Knox RN) Lower Extremities Edema: None (03/05/2017 18:07:Pippa Knox RN) Lower Extremities Edema Degree: None (03/05/2017 18:07:Pippa Knox RN) Upper Extremities Edema: None (03/05/2017 18:07:Pippa Knox RN) Upper Extremities Edema Degree: None (03/05/2017 18:07:Pippa Knox RN) Facial Edema: None (03/05/2017 18:07:Pippa Knox RN) DVT RISK ASSESSMENT DVT Risk Age: Age less than 41 years (03/05/2017 18:07:Pippa Knox RN) DVT Risk BMI: BMI<31 (03/05/2017 18:07:Pippa Knox RN) DVT Risk Surgery: None Applicable (03/05/2017 18:07:Pippa Knox RN) DVT Risk Other: Women Only- or (<1 month) (03/05/2017 18:07:Pippa Knox RN) DVT Risk Total: 1 (03/05/2017 18:07:QS system process) DVT Risk Text: Low Risk (<10%) No specific measures, early ambulation (03/05/2017 18:07:QS system process) RESPIRATORY Respiratory Effort: Unlabored; Regular Rhythm; Equal Expansion (03/05/2017 18:07:Pippa Broman, RN) Breath Sounds, Left: Clear and Equal (03/05/2017 18:07:Pippa Broman, RN) Breath Sounds, Right: Clear and Equal (03/05/2017 18:07:Pippa Broman, RN) Cough Productivity: None (03/05/2017 18:07:Pippa Broman, RN) GASTROINTESTINAL Nausea/Vomiting: Denies (03/05/2017 18:07:Pippa Knox RN) Bowel Sounds: Normoactive (03/05/2017 18:07:Pippa Knox RN) RUQ Epigastric Pain: Denies (03/05/2017 18:07:Pippa Knox RN) Bowel Patterns: Soft, Formed Stool (03/05/2017 18:07:Pippa Knox RN) Hemorrhoids: None (03/05/2017 18:07:Pippa Knox RN) Diet Type: Regular diet (03/05/2017 18:07:Pippa Knox RN) GENITOURINARY Bladder: Nondistended (03/05/2017 18:07:Pippa Knox RN) Frequency of Urination: No (03/05/2017 18:07:Pippa Knox RN) Urination Burning: No (03/05/2017 18:07:Pippa Knox RN) CVA Tenderness: No (03/05/2017 18:07:Pippa Knox RN) Vaginal Bleeding: None (03/05/2017 18:07:Pippa Knox RN) Vaginal Discharge Amount: Small (03/05/2017 18:07:Pippa Knox RN) Vaginal Discharge Color: [place] (03/05/2017 18:07:Pippa Bromneo, RN) Vaginal Discharge Odor: Non-Odorous (03/05/2017 18:07:Pippa Broman, RN) Vaginal Discharge Character: Thin (03/05/2017 18:07:Pippa Broman, RN) INTEGUMENTARY Skin Color: Normal for Race (03/05/2017 18:07:Pippa Broman, RN) Skin Temperature: Warm (03/05/2017 18:07:Pippa Broman, RN) Skin Moisture: Dry (03/05/2017 18:07:Pippa Broman, RN) BERNY SKIN ASSESSMENT Berny Scale Sensory Perception: No Impairment- Responds to verbal commands. Has no sensory deficit which would limit ability to feel or voice pain or discomfort (03/05/2017 18:07:Pippa Knox RN) Berny Scale Moisture: Rarely Moist- Skin is usually dry. Linen only requires changing at routine intervals (03/05/2017 18:07:Pippa Knox RN) Berny Scale Activity: Walks Frequently- Walks outside the room at least twice a day and inside room at least every 2 hours during the day. (03/05/2017 18:07:Pippa Knox RN) Berny Scale Mobility: No Limitations- Makes major and frequent changes in position without assistance (03/05/2017 18:07:Pippa Knox RN) Berny Scale Nutrition: Excellent- Eats most of every meal. Never refuses a meal. Usually eats a total of 4 or more servings of meat and dairy products. Occasionally eats between meals. Does not require supplementation (03/05/2017 18:07:Pippa Knox RN) Berny Scale Friction and Shear: No Apparent Problem- Moves in bed and in chair independently and has sufficient muscle strength to lift up completely during move. Maintains good position in bed or chair at all times (03/05/2017 18:07:Pippa Knox RN) Berny Scale Total: 23 (03/05/2017 18:07:QS system process) Berny Scale Risk: No Risk of Pressure Ulcer Noted at this Time (03/05/2017 18:07:QS system process) SUPPORT Family Support: Family supportive (03/05/2017 18:07:Pippa Knox RN) Emotional State: Calm/Relaxed (03/05/2017 18:07:Pippa Knox RN) SAFETY Call [place] Within Reach: Yes (03/05/2017 18:07:Pippa Knox RN) Side Rails Up: Yes (03/05/2017 18:07:Pippa Knox RN) Bed Wheels Locked: Yes (03/05/2017 18:07:Pippa Knox RN) Arm Bands Present: Yes (03/05/2017 18:07:Pippa Knox RN) Isolation: [place] (03/05/2017 18:07:Pippa Knox RN) FALL SCREEN Fall Risk History of Falling: (0) No (03/05/2017 18:07:Pippa Knox RN) Fall Risk Secondary Diagnosis: (0) No (03/05/2017 18:07:Pippa Knox RN) Fall Risk Ambulatory Aid: (0) None/Bedrest/Wheelchair/Nurse Assist (03/05/2017 18:07:Pippa Knox RN) Fall Risk IV Therapy: (0) No (03/05/2017 18:07:Pippa Knox RN) Fall Risk Gait: (0) Normal/Bedrest/Immobile (03/05/2017 18:07:Pippa Knox RN) Fall Risk Mental Status: (0) Oriented to Own Ability (03/05/2017 18:07:Pippa Knox RN) Fall Risk Score: 0 (03/05/2017 18:07:QS system process) Fall Risk Score Definition: No Risk: No action required (03/05/2017 18:07:QS system process)
--- NOTE | 2017-03-06 10:47 | L&D Discharge Summary ---
OB Discharge Summary Datetime Report Generated by CPN: 03/06/2017 10:45 DISCHARGE DIAGNOSIS Diagnosis/Symptoms: Other Diagnoses/Symptoms Other: Membranes intact Treatment/Procedures Other: Amnisure Gestation: 22.4 Number of Babies in Womb: 1 Parity: 0 DIET/ACTIVITY/RESTRICTIONS Diet: Regular Activity: Normal Activity TEACHING/INSTRUCTIONS/REFERRALS Instructions Given To: Patient Instructions Understood: Patient Verbalized Understanding Referrals: None Educational Materials- Other: [employer] DISCHARGE INFORMATION Discharged AMA: No Discharge Date/Time: 03/05/2017 18:44 Discharged To: Home Discharge Provider Name: Dr. Fuentes Accompanied By: Self Discharge Method: Ambulatory Condition: Stable FOLLOW UP INFORMATION Follow Up With: [facility] Follow Up On: As Scheduled Follow Up Phone Number: [facility] - GENERAL INSTR-CALL PROVIDER IF: Pressure: Pressure in your vagina or lower abdomen that may feel like the baby is pushing down Period Like Cramps: Period-like cramps or low dull backache that may come and go Cramps/Diarrhea: Abdominal cramps that may be accompanied by diarrhea Gush of Fluid/Blood: Gush of fluid or blood from your vagina (it is normal to have spotting after vaginal exam or intercourse) Vaginal Discharge: Change in the type or amount of vaginal discharge Decreased Movement: Your baby is not moving as much as usual- 4 movements in 1 hour after drinking and resting on side Temperature: Temperature greater than 100.0(F) orally
--- NOTE | 2017-03-06 10:47 | L&D Current Admission ---
Current Admit Datetime Report Generated by CPN: 03/06/2017 10:45 ADMISSION INFORMATION Chief Complaint: Suspected Rupture of Membranes (03/05/2017 18:07:Pippa Knox RN)
--- NOTE | 2017-03-06 16:46 | L&D Discharge Summary ---
OB Discharge Summary Datetime Report Generated by CPN: 03/06/2017 16:45 DISCHARGE DIAGNOSIS Diagnosis/Symptoms: Other Diagnoses/Symptoms Other: Membranes intact Treatment/Procedures Other: Amnisure Gestation: 22.4 Number of Babies in Womb: 1 Parity: 0 DIET/ACTIVITY/RESTRICTIONS Diet: Regular Activity: Normal Activity TEACHING/INSTRUCTIONS/REFERRALS Instructions Given To: Patient Instructions Understood: Patient Verbalized Understanding Referrals: None Educational Materials- Other: [employer] DISCHARGE INFORMATION Discharged AMA: No Discharge Date/Time: 03/05/2017 18:44 Discharged To: Home Discharge Provider Name: Dr. Fuentes Accompanied By: Self Discharge Method: Ambulatory Condition: Stable FOLLOW UP INFORMATION Follow Up With: [facility] Follow Up On: As Scheduled Follow Up Phone Number: [facility] - GENERAL INSTR-CALL PROVIDER IF: Pressure: Pressure in your vagina or lower abdomen that may feel like the baby is pushing down Period Like Cramps: Period-like cramps or low dull backache that may come and go Cramps/Diarrhea: Abdominal cramps that may be accompanied by diarrhea Gush of Fluid/Blood: Gush of fluid or blood from your vagina (it is normal to have spotting after vaginal exam or intercourse) Vaginal Discharge: Change in the type or amount of vaginal discharge Decreased Movement: Your baby is not moving as much as usual- 4 movements in 1 hour after drinking and resting on side Temperature: Temperature greater than 100.0(F) orally
--- NOTE | 2017-03-06 16:46 | Antepartum Discharge Summary ---
Antepartum DC Datetime Report Generated by CPN: 03/06/2017 16:45 DIET/ACTIVITY/RESTRICTIONS Diet: Regular (03/05/2017 18:41:Pippa Broman, RN) Activity: Normal Activity (03/05/2017 18:41:Pippa Broman, RN) TEACHING/INSTRUCTIONS/REFERRALS Instructions Given To: Patient (03/05/2017 18:41:Pippa Broman, RN) Instructions Understood: Patient Verbalized Understanding (03/05/2017 18:41:Pippa Broman, RN) Referrals: None (03/05/2017 18:41:Pippa Knox RN) Educational Materials- Other: [employer] (03/05/2017 18:41:Pippa Knox RN) DISCHARGE INFORMATION Discharged AMA: No (03/05/2017 18:41:Pippa Knox RN) Discharge Date/Time: 03/05/2017 18:44 (03/05/2017 18:41:Pippa Knox RN) Discharged To: Home (03/05/2017 18:41:Pippa Knox RN) Discharge Provider Name: Dr. Fuentes (03/05/2017 18:41:Pippa Knox RN) Accompanied By: Self (03/05/2017 18:41:Pippa Knox RN) Discharge Method: Ambulatory (03/05/2017 18:41:Pippa Knox RN) Condition: Stable (03/05/2017 18:41:Pippa Knox RN) FOLLOW UP INFORMATION Follow Up With: [facility] (03/05/2017 18:41:Pippa Knox RN) Follow Up On: As Scheduled (03/05/2017 18:41:Pippa Knox RN) Follow Up Phone Number: [facility] - (03/05/2017 18:41:Pippa Knox RN) GENERAL INSTR-CALL PROVIDER IF: Pressure: Pressure in your vagina or lower abdomen that may feel like the baby is pushing down (03/05/2017 18:41:Pippa Knox RN) Period Like Cramps: Period-like cramps or low dull backache that may come and go (03/05/2017 18:41:Pippa Knox RN) Cramps/Diarrhea: Abdominal cramps that may be accompanied by diarrhea (03/05/2017 18:41:Pippa Knox RN) Gush of Fluid/Blood: Gush of fluid or blood from your vagina (it is normal to have spotting after vaginal exam or intercourse) (03/05/2017 18:41:Pippa Knox RN) Vaginal Discharge: Change in the type or amount of vaginal discharge (03/05/2017 18:41:Pippa Knox RN) Decreased Movement: Your baby is not moving as much as usual- 4 movements in 1 hour after drinking and resting on side (03/05/2017 18:41:Pippa Knox RN) Temperature: Temperature greater than 100.0(F) orally (03/05/2017 18:41:Pippa Knox RN) Urinary Output: Decreased urinary output or dark colored urine (03/05/2017 18:41:Pippa Knox RN)
--- NOTE | 2017-03-06 16:46 | L&D Current Admission ---
Current Admit Datetime Report Generated by CPN: 03/06/2017 16:45 ADMISSION INFORMATION Chief Complaint: Suspected Rupture of Membranes (03/05/2017 18:07:Pippa Knox RN)
--- NOTE | 2017-03-06 16:46 | L&D General Admission ---
General Admit Datetime Report Generated by CPN: 03/06/2017 16:45 INFORMATION Patient Age: 21 (03/05/2017 17:11:QS system process) EDC: 07/05/2017 00:00 (03/05/2017 18:13:JEAN Vallecillo) EDC per Ultrasound: 07/05/2017 00:00 (03/05/2017 18:13:Pippa Knox RN) : 1 (03/05/2017 18:13:Pippa Knox RN) Para: 0 (03/05/2017 18:13:Pippa Knox RN) Baby, Number in Womb: 1 (03/05/2017 18:13:Pippa Knox RN) CARE Primary Sales Market Leader: [facility] (03/05/2017 18:13:Pippa Knox RN) Height (in): 62 (03/05/2017 17:43:QS system process) ALLERGIES Medication Allergies: Penicillins (03/05/2017) (03/05/2017 17:39:QS system process) Medication Allergies: Penicillins (03/04/2017) (03/05/2017 17:11:QS system process) DEMOGRAPHICS Address: [address] [place] [id number] (03/05/2017 17:11:QS system process) Zipcode: [id number] (03/05/2017 17:11:QS system process) Home (03/05/2017 17:11:QS system process) N: [phone] (03/05/2017 17:11:QS system process) Next of Kin Name: GABI SOTO (03/05/2017 17:11:QS system process) Next of Kin (03/05/2017 17:11:QS system process) Next of Kin Relationship: [place] (03/05/2017 17:11:QS system process) Date of : 1995 (03/05/2017 17:11:QS system process) Marital Status: Legally (03/05/2017 17:11:QS system process) Sex: Female (03/05/2017 17:11:QS system process) Race: (03/05/2017 17:11:QS system process) Ethnicity: Non- or (03/05/2017 17:11:QS system process) Druze: None (03/05/2017 17:11:QS system process)
--- NOTE | 2017-03-06 22:46 | L&D Discharge Summary ---
OB Discharge Summary Datetime Report Generated by CPN: 03/06/2017 22:45 DISCHARGE DIAGNOSIS Diagnosis/Symptoms: Other Diagnoses/Symptoms Other: Membranes intact Treatment/Procedures Other: Amnisure Gestation: 22.4 Number of Babies in Womb: 1 Parity: 0 DIET/ACTIVITY/RESTRICTIONS Diet: Regular Activity: Normal Activity TEACHING/INSTRUCTIONS/REFERRALS Instructions Given To: Patient Instructions Understood: Patient Verbalized Understanding Referrals: None Educational Materials- Other: [employer] DISCHARGE INFORMATION Discharged AMA: No Discharge Date/Time: 03/05/2017 18:44 Discharged To: Home Discharge Provider Name: Dr. Fuentes Accompanied By: Self Discharge Method: Ambulatory Condition: Stable FOLLOW UP INFORMATION Follow Up With: [facility] Follow Up On: As Scheduled Follow Up Phone Number: [facility] - GENERAL INSTR-CALL PROVIDER IF: Pressure: Pressure in your vagina or lower abdomen that may feel like the baby is pushing down Period Like Cramps: Period-like cramps or low dull backache that may come and go Cramps/Diarrhea: Abdominal cramps that may be accompanied by diarrhea Gush of Fluid/Blood: Gush of fluid or blood from your vagina (it is normal to have spotting after vaginal exam or intercourse) Vaginal Discharge: Change in the type or amount of vaginal discharge Decreased Movement: Your baby is not moving as much as usual- 4 movements in 1 hour after drinking and resting on side Temperature: Temperature greater than 100.0(F) orally
--- NOTE | 2017-03-07 04:46 | L&D Discharge Summary ---
OB Discharge Summary Datetime Report Generated by CPN: 03/07/2017 04:45 DISCHARGE DIAGNOSIS Diagnosis/Symptoms: Other Diagnoses/Symptoms Other: Membranes intact Treatment/Procedures Other: Amnisure Gestation: 22.4 Number of Babies in Womb: 1 Parity: 0 DIET/ACTIVITY/RESTRICTIONS Diet: Regular Activity: Normal Activity TEACHING/INSTRUCTIONS/REFERRALS Instructions Given To: Patient Instructions Understood: Patient Verbalized Understanding Referrals: None Educational Materials- Other: [employer] DISCHARGE INFORMATION Discharged AMA: No Discharge Date/Time: 03/05/2017 18:44 Discharged To: Home Discharge Provider Name: Dr. Fuentes Accompanied By: Self Discharge Method: Ambulatory Condition: Stable FOLLOW UP INFORMATION Follow Up With: [facility] Follow Up On: As Scheduled Follow Up Phone Number: [facility] - GENERAL INSTR-CALL PROVIDER IF: Pressure: Pressure in your vagina or lower abdomen that may feel like the baby is pushing down Period Like Cramps: Period-like cramps or low dull backache that may come and go Cramps/Diarrhea: Abdominal cramps that may be accompanied by diarrhea Gush of Fluid/Blood: Gush of fluid or blood from your vagina (it is normal to have spotting after vaginal exam or intercourse) Vaginal Discharge: Change in the type or amount of vaginal discharge Decreased Movement: Your baby is not moving as much as usual- 4 movements in 1 hour after drinking and resting on side Temperature: Temperature greater than 100.0(F) orally
--- NOTE | 2017-03-07 10:46 | L&D Discharge Summary ---
OB Discharge Summary Datetime Report Generated by CPN: 03/07/2017 10:45 DISCHARGE DIAGNOSIS Diagnosis/Symptoms: Other Diagnoses/Symptoms Other: Membranes intact Treatment/Procedures Other: Amnisure Gestation: 22.4 Number of Babies in Womb: 1 Parity: 0 DIET/ACTIVITY/RESTRICTIONS Diet: Regular Activity: Normal Activity TEACHING/INSTRUCTIONS/REFERRALS Instructions Given To: Patient Instructions Understood: Patient Verbalized Understanding Referrals: None Educational Materials- Other: [employer] Counts DISCHARGE INFORMATION Discharged AMA: No Discharge Date/Time: 03/05/2017 18:44 Discharged To: Home Discharge Provider Name: Dr. Fuentes Accompanied By: Self Discharge Method: Ambulatory Condition: Stable FOLLOW UP INFORMATION Follow Up With: [facility] Follow Up On: As Scheduled Follow Up Phone Number: [facility] - GENERAL INSTR-CALL PROVIDER IF: Pressure: Pressure in your vagina or lower abdomen that may feel like the baby is pushing down Period Like Cramps: Period-like cramps or low dull backache that may come and go Cramps/Diarrhea: Abdominal cramps that may be accompanied by diarrhea Gush of Fluid/Blood: Gush of fluid or blood from your vagina (it is normal to have spotting after vaginal exam or intercourse) Vaginal Discharge: Change in the type or amount of vaginal discharge Decreased Movement: Your baby is not moving as much as usual- 4 movements in 1 hour after drinking and resting on side Temperature: Temperature greater than 100.0(F) orally
== END 2017-03-05 18:44 | disposition home or self-care (01) ==
LOC: LC 17:10
PROVIDERS: ATTEND Obstetrics & Gynecology
PROC: 4A1HXCZ Monitoring of Products of Conception, Cardiac Rate, External Approach (ICD-10-PCS; principal; 2017-03-05)
DX: Z34.92 Encounter for supervision of normal pregnancy, unspecified, second trimester (principal); Z36 Encounter for antenatal screening of mother; Z3A.22 22 weeks gestation of pregnancy
CPT/HCPCS: 80307; 81001; 84112

== ENCOUNTER 2017-04-09 14:20 | Outpatient (CLI) | payer OTHER, MEDICAID ==
[2017-04-09 15:03] LABS: APPEARANCE,URINE SLIGHTLY-CLOUDY; BILIRUBIN,URINE NEGATIVE (NEGATIVE); GLUCOSE, URINE NEGATIVE (NEGATIVE); KETONES,URINE NEGATIVE (NEGATIVE); LEUKOCYTE ESTERASE,URINE SMALL (NEGATIVE); NITRITE,URINE NEGATIVE (NEGATIVE); PROTEIN,URINE NEGATIVE (NEGATIVE); URINE SPECIFIC GRAVITY 1.006; UROBILINOGEN,URINE NEGATIVE mg/dL (<2.0)
[2017-04-09 15:25] LABS: URINE CREATININE 58.4 mg/dL (16-327); URINE PROTEIN 11.2 mg/dL (<12)
[2017-04-09 15:36] LABS: URINE BARBITURATES SCREEN NEGATIVE; URINE METHADONE SCREEN NEGATIVE; URINE OPIATES LOW NEGATIVE; URINE PHENCYCLIDINE SCREEN NEGATIVE
[2017-04-09 15:50] LABS: ABSOLUTE LYMPHOCYTES (AUTO) 1.5 10^3/uL (0.5-4.7); ABSOLUTE MONOCYTES (AUTO) 0.5 10^3/uL (0.1-1.4); ABSOLUTE NEUT (AUTO) 5.1 10^3/uL (1.7-8.2); BASOPHILS % (AUTO) 0.4 % (0-2); EOSINOPHILS % (AUTO) 0.3 % (0-6); HEMATOCRIT 33.4 % (36.0-47.0); HEMOGLOBIN 11.8 g/dL (12.0-15.5); LYMPHOCYTES % (AUTO) 21.5 % (13-45); MEAN CORPUSCULAR HEMOGLOBIN 32.8 pg (27.0-33.4); MEAN CORPUSCULAR HGB CONC 35.4 g/dL (32.0-36.0); MEAN CORPUSCULAR VOLUME 93 fl (80-97); MONOCYTES % (AUTO) 7.4 % (3-13); RED BLOOD COUNT 3.61 10^6/uL (3.72-5.28); RED CELL DISTRIBUTION WIDTH 12.8 % (11.5-14.0); SEGMENTED NEUTROPHILS % (AUTO) 70.4 % (42-78); WHITE BLOOD COUNT 7.2 10^3/uL (4.0-10.5)
[2017-04-09 16:21] LABS: ALANINE AMINOTRANSFERASE 24 U/L (9-52); ALBUMIN 3.8 g/dL (3.5-5.0); ALKALINE PHOSPHATASE 79 U/L (38-126); ANION GAP 10 (5-19); ASPARTATE AMINO TRANSFERASE 24 U/L (14-36); BILIRUBIN,DIRECT 0.3 mg/dL (0.0-0.4); BILIRUBIN,TOTAL 0.3 mg/dL (0.2-1.3); BLOOD UREA NITROGEN 7 mg/dL (7-20); CALCIUM 10.1 mg/dL (8.4-10.2); CARBON DIOXIDE 25 mmol/L (22-30); CHLORIDE 104 mmol/L (98-107); CREATININE RESULT 0.57 mg/dL (0.52-1.25); GLUCOSE 70 mg/dL (75-110); LDH 394 U/L (313-618); POTASSIUM 4.5 mmol/L (3.6-5.0); SODIUM 139.3 mmol/L (137-145); TOTAL PROTEIN 6.5 g/dL (6.3-8.2); URIC ACID 3.9 mg/dL (2.5-6.2)
== END 2017-04-09 16:19 | disposition home or self-care (01) ==
LOC: LC 14:20
PROVIDERS: ATTEND Obstetrics & Gynecology
PROC: 4A1HXCZ Monitoring of Products of Conception, Cardiac Rate, External Approach (ICD-10-PCS; principal; 2017-04-09)
DX: Z36 Encounter for antenatal screening of mother (principal); Z3A.27 27 weeks gestation of pregnancy
CPT/HCPCS: 36415; 80053; 80307; 81001; 82570; 83615; 84156; 84550; 85025

== ENCOUNTER 2017-04-25 00:13 | Outpatient (CLI) | payer OTHER, MEDICAID ==
[2017-04-25 00:56] LABS: APPEARANCE,URINE CLEAR; BILIRUBIN,URINE NEGATIVE (NEGATIVE); GLUCOSE, URINE NEGATIVE (NEGATIVE); KETONES,URINE NEGATIVE (NEGATIVE); LEUKOCYTE ESTERASE,URINE TRACE (NEGATIVE); NITRITE,URINE NEGATIVE (NEGATIVE); PROTEIN,URINE NEGATIVE (NEGATIVE); URINE SPECIFIC GRAVITY 1.005; UROBILINOGEN,URINE NEGATIVE mg/dL (<2.0)
[2017-04-25 02:31] LABS: URINE BARBITURATES SCREEN NEGATIVE; URINE METHADONE SCREEN NEGATIVE; URINE OPIATES LOW NEGATIVE; URINE PHENCYCLIDINE SCREEN NEGATIVE
--- NOTE | 2017-04-25 03:17 | RADIOLOGY REPORT (SQ) ---
EXAM DESCRIPTION: U/S OB LIMITED COMPLETED DATE/TIME: 04/25/2017 3:07 am REASON FOR STUDY: cervical length for contractions/vag bleeding COMPARISON: None. TECHNIQUE: Limited transvaginal and transabdominal grayscale ultrasound for evaluation of specific r equested obstetrical parameters. LIMITATIONS: None. FINDINGS: CERVICAL LENGTH: 3.6 cm. Closed. FHR: 135 beats per minute. PRESENTATION: Cephalic. OTHER: No other significant findings. IMPRESSION: LIMITED OBSTETRICAL ULTRASOUND WITH MEASURED PARAMETERS DELINEATED ABOVE. Trimester of : Third trimester - 28 weeks to delivery. TECHNICAL DOCUMENTATION: JOB ID: [id number] [employer]- All Rights Reserved
[2017-04-25] MEDS ORDERED: RINGERS SOLUTION,LACTATED 1,000 ML IV ONE (03:23)
== END 2017-04-25 05:08 | disposition home or self-care (01) ==
LOC: LC 00:13
PROVIDERS: ATTEND Obstetrics & Gynecology
PROC: 4A1HXCZ Monitoring of Products of Conception, Cardiac Rate, External Approach (ICD-10-PCS; principal; 2017-04-25)
DX: O46.93 Antepartum hemorrhage, unspecified, third trimester (principal); O36.8130 Decreased fetal movements, third trimester, not applicable or unspecified; Z3A.29 29 weeks gestation of pregnancy
CPT/HCPCS: 59899; 87210; 81001; 80307; 76815; Q0114

== ENCOUNTER 2017-05-05 13:39 | Outpatient (CLI) | payer OTHER, MEDICAID ==
[2017-05-05 15:03] LABS: APPEARANCE,URINE CLOUDY; BILIRUBIN,URINE NEGATIVE (NEGATIVE); GLUCOSE, URINE NEGATIVE (NEGATIVE); KETONES,URINE 80 mg/dL (NEGATIVE); LEUKOCYTE ESTERASE,URINE SMALL (NEGATIVE); NITRITE,URINE NEGATIVE (NEGATIVE); PROTEIN,URINE 30 mg/dL (NEGATIVE); URINE SPECIFIC GRAVITY 1.024; UROBILINOGEN,URINE NEGATIVE mg/dL (<2.0)
[2017-05-05 15:13] LABS: URINE BARBITURATES SCREEN NEGATIVE; URINE METHADONE SCREEN NEGATIVE; URINE OPIATES LOW NEGATIVE; URINE PHENCYCLIDINE SCREEN NEGATIVE
[2017-05-05] MEDS ORDERED: ONDANSETRON HCL INJ/PF 4 MG/2 ML SDV ONE (15:14)
--- NOTE | 2017-05-05 15:41 | RADIOLOGY REPORT (SQ) ---
EXAM DESCRIPTION: U/S OB LIMITED COMPLETED DATE/TIME: 05/05/2017 3:30 pm REASON FOR STUDY: Cervical length, r/o PTL COMPARISON: None. TECHNIQUE: Limited transvaginal grayscale ultrasound for evaluation of specific requested obstetrica l parameters. LIMITATIONS: None. FINDINGS: CERVICAL LENGTH: 2.8 cm. Closed. APARNA: Largest pocket is 4.8 cm. FHR: 162 beats per minute. PRESENTATION: Cephalic. OTHER: No other significant findings. IMPRESSION: LIMITED OBSTETRICAL ULTRASOUND WITH MEASURED PARAMETERS DELINEATED ABOVE. Trimester of : Third trimester - 28 weeks to delivery. TECHNICAL DOCUMENTATION: JOB ID: [id number] [employer]- All Rights Reserved
[2017-05-05 16:08] LABS: CHLAM PCR NOT DETECTED (NOT DETECT)
[2017-05-05] MEDS ORDERED: PROMETHAZINE HCL INJ 25 MG/1 ML VIAL ONE (17:14)
[2017-05-05 17:44] LABS: ABSOLUTE LYMPHOCYTES (AUTO) 2.2 10^3/uL (0.5-4.7); ABSOLUTE MONOCYTES (AUTO) 0.5 10^3/uL (0.1-1.4); ABSOLUTE NEUT (AUTO) 5.9 10^3/uL (1.7-8.2); BASOPHILS % (AUTO) 0.2 % (0-2); EOSINOPHILS % (AUTO) 0.2 % (0-6); HEMATOCRIT 28.8 % (36.0-47.0); HEMOGLOBIN 10.1 g/dL (12.0-15.5); HGB HCT DIFFERENCE 1.5; LYMPHOCYTES % (AUTO) 25.7 % (13-45); MEAN CORPUSCULAR HEMOGLOBIN 32.3 pg (27.0-33.4); MEAN CORPUSCULAR HGB CONC 35.2 g/dL (32.0-36.0); MEAN CORPUSCULAR VOLUME 92 fl (80-97); MONOCYTES % (AUTO) 5.6 % (3-13); RED BLOOD COUNT 3.13 10^6/uL (3.72-5.28); RED CELL DISTRIBUTION WIDTH 12.6 % (11.5-14.0); SEGMENTED NEUTROPHILS % (AUTO) 68.3 % (42-78); WHITE BLOOD COUNT 8.7 10^3/uL (4.0-10.5)
[2017-05-05 18:02] LABS: ALANINE AMINOTRANSFERASE 17 U/L (9-52); ALBUMIN 2.9 g/dL (3.5-5.0); ALKALINE PHOSPHATASE 103 U/L (38-126); AMYLASE 50 U/L (30-110); ANION GAP 9 (5-19); ASPARTATE AMINO TRANSFERASE 15 U/L (14-36); BILIRUBIN,DIRECT 0.3 mg/dL (0.0-0.4); BILIRUBIN,TOTAL 0.4 mg/dL (0.2-1.3); BLOOD UREA NITROGEN 5 mg/dL (7-20); CARBON DIOXIDE 24 mmol/L (22-30); CHLORIDE 104 mmol/L (98-107); CREATININE RESULT 0.51 mg/dL (0.52-1.25); GLUCOSE 163 mg/dL (75-110); LIPASE 42.6 U/L (23-300); POTASSIUM 3.3 mmol/L (3.6-5.0); SODIUM 137.2 mmol/L (137-145); TOTAL PROTEIN 5.6 g/dL (6.3-8.2)
== END 2017-05-05 19:15 | disposition home or self-care (01) ==
LOC: LC 13:39
PROVIDERS: ATTEND Obstetrics & Gynecology
PROC: 4A1HXCZ Monitoring of Products of Conception, Cardiac Rate, External Approach (ICD-10-PCS; principal; 2017-05-05)
DX: O47.03 False labor before 37 completed weeks of gestation, third trimester (principal); O26.893 Other specified pregnancy related conditions, third trimester; R11.2 Nausea with vomiting, unspecified; Z3A.31 31 weeks gestation of pregnancy
CPT/HCPCS: 59899; 36415; 87086; 87210; 82962; 82150; 83690; 85025; 80053; 81001; 80307; 87491; 87591; 76815; J2550; J2405

== ENCOUNTER 2017-05-24 15:15 | Outpatient (CLI) | payer OTHER, MEDICAID ==
--- NOTE | 2017-05-24 15:41 | Non Stress Test Report ---
Non Stress Test Datetime Report Generated by CPN: 05/24/2017 15:41 DEMOGRAPHIC EGA NST: 34.0 INDICATION Indication for Study: Chronic Hypertension; Ordered by Provider Indication for Study (NST) Other: Repeat NST from office VITAL SIGNS Temperature - NST: 98.3 MONITORING Monitor Explained: Monitor Explained; Test Explained; Patient Verbalized Understanding Time on Monitor: 05/24/2017 15:30 Time off Monitor: 05/24/2017 15:50 NST Duration: 20 NST INTERVENTIONS NST Interventions: PO Hydration; Reposition Patient Physician Notified NST: Dr. Rolle BABY A: [id number] BABY A Movement : Present Contraction Frequency : Irr FHR Baseline : 125 Accelerations : 15X15 Decelerations : None Variability : Moderate 6-25bpm NST Review: Meets Criteria for Reactive NST NST Review and Verified By : Estefania Castro RNC NST Results: Reactive NST REPORT Report Trigger: Send Report
[2017-05-25] MEDS ORDERED: RINGERS SOLUTION,LACTATED 1,000 ML IV PRN (00:43)
[2017-05-25] MEDS ORDERED: ONDANSETRON HCL INJ/PF 4 MG/2 ML SDV IV ONE (01:30)
== END 2017-05-24 16:25 | disposition home or self-care (01) ==
LOC: LC 15:15
PROVIDERS: ATTEND Obstetrics & Gynecology
PROC: 4A0HXCZ Measurement of Products of Conception, Cardiac Rate, External Approach (ICD-10-PCS; principal; 2017-05-24)
DX: O36.8130 Decreased fetal movements, third trimester, not applicable or unspecified (principal); Z3A.34 34 weeks gestation of pregnancy
CPT/HCPCS: 59025

== ENCOUNTER 2017-05-25 00:18 | Outpatient (CLI) | payer OTHER, MEDICAID ==
[2017-05-25] MEDS ORDERED: RINGERS SOLUTION,LACTATED 1,000 ML IV PRN (00:42)
[2017-05-25] MEDS ORDERED: ONDANSETRON HCL INJ/PF 4 MG/2 ML SDV ONE (00:44)
[2017-05-25 01:09] LABS: APPEARANCE,URINE SLIGHTLY-CLOUDY; BILIRUBIN,URINE NEGATIVE (NEGATIVE); GLUCOSE, URINE NEGATIVE (NEGATIVE); KETONES,URINE 80 mg/dL (NEGATIVE); LEUKOCYTE ESTERASE,URINE SMALL (NEGATIVE); NITRITE,URINE NEGATIVE (NEGATIVE); PROTEIN,URINE 30 mg/dL (NEGATIVE); UROBILINOGEN,URINE NEGATIVE mg/dL (<2.0)
[2017-05-25] MEDS ORDERED: TERBUTALINE SULFATE INJ/PF 1 MG/1 ML SDV ONE (01:43)
[2017-05-25 01:57] LABS: URINE BARBITURATES SCREEN NEGATIVE; URINE METHADONE SCREEN NEGATIVE; URINE OPIATES LOW NEGATIVE; URINE PHENCYCLIDINE SCREEN NEGATIVE
[2017-05-25] MEDS ORDERED: TERBUTALINE SULFATE INJ/PF 1 MG/1 ML SDV SUBCUT ONE (02:15)
[2017-05-25] MEDS ORDERED: ONDANSETRON HCL INJ/PF 4 MG/2 ML SDV IV ONE (02:15)
--- NOTE | 2017-05-25 02:34 | Non Stress Test Report ---
Non Stress Test Datetime Report Generated by CPN: 05/25/2017 02:34 DEMOGRAPHIC Test Number: 2 EGA NST: 34.1 INDICATION Indication for Study: Ordered by Provider Indication for Study (NST) Other: LC MONITORING Monitor Explained: Monitor Explained; Test Explained; Patient Verbalized Understanding Time on Monitor: 05/25/2017 00:43 Time off Monitor: 05/25/2017 02:15 NST Duration: 92 NST INTERVENTIONS NST Interventions: PO Hydration; IV Fluids; Reposition Patient Physician Notified NST: DrMaya Rolle BABY A: [id number] BABY A Movement : Present Contraction Frequency : 1.5-7 FHR Baseline : 125 Accelerations : 15X15 Decelerations : None Variability : Moderate 6-25bpm NST Review: Meets Criteria for Reactive NST NST Review and Verified By : BEVERLY PayneT Results: Reactive NST REPORT Report Trigger: Send Report
== END 2017-05-25 02:31 | disposition home or self-care (01) ==
LOC: LC 00:18
PROVIDERS: ATTEND Obstetrics & Gynecology
DX: O21.0 Mild hyperemesis gravidarum (principal); Z3A.34 34 weeks gestation of pregnancy
CPT/HCPCS: 59025; 94760; 81001; 80307; J3105; J2405

== ENCOUNTER 2017-05-31 14:25 | Outpatient (CLI) | payer OTHER, MEDICAID ==
--- NOTE | 2017-05-31 15:44 | Non Stress Test Report ---
Non Stress Test Datetime Report Generated by CPN: 05/31/2017 15:44 DEMOGRAPHIC Test Number: 3 EGA NST: 35.0 INDICATION Indication for Study: Diabetes Mellitus MONITORING Monitor Explained: Monitor Explained; Test Explained; Patient Verbalized Understanding Time on Monitor: 05/31/2017 14:44 Time off Monitor: 05/31/2017 15:32 NST Duration: 48 NST INTERVENTIONS NST Interventions: PO Hydration; Reposition Patient Physician Notified NST: Dr. Steve BABY A: [id number] BABY A Contraction Frequency : Occ FHR Baseline : 130 Accelerations : 15X15 Decelerations : None Variability : Moderate 6-25bpm NST Review: Meets Criteria for Reactive NST NST Review and Verified By : Link Banda RN NST Results: Reactive NST REPORT Report Trigger: Send Report
== END 2017-05-31 15:59 | disposition home or self-care (01) ==
LOC: LC 14:25
PROVIDERS: ATTEND Obstetrics & Gynecology
PROC: 4A1HXCZ Monitoring of Products of Conception, Cardiac Rate, External Approach (ICD-10-PCS; principal; 2017-05-31)
DX: O24.419 Gestational diabetes mellitus in pregnancy, unspecified control (principal); Z3A.35 35 weeks gestation of pregnancy
CPT/HCPCS: 59025; 82962

== ENCOUNTER 2017-06-07 15:27 | Outpatient (CLI) | payer OTHER, MEDICAID | END 2017-06-07 18:58 | disposition home or self-care (01) | LOC: LC 15:27 | PROVIDERS: ATTEND Specialist | PROC: 4A1HXCZ Monitoring of Products of Conception, Cardiac Rate, External Approach (ICD-10-PCS; principal; 2017-06-07) | DX: O24.415 Gestational diabetes mellitus in pregnancy, controlled by oral hypoglycemic drugs (principal); Z3A.36 36 weeks gestation of pregnancy | CPT/HCPCS: 59025 ==

== ENCOUNTER 2017-06-21 04:18 | Outpatient (CLI) | payer OTHER, MEDICAID ==
[2017-06-21 05:23] LABS: AMNISURE (ROM) NEGATIVE (NEGATIVE)
[2017-06-21 05:35] LABS: APPEARANCE,URINE SLIGHTLY-CLOUDY; BILIRUBIN,URINE NEGATIVE (NEGATIVE); GLUCOSE, URINE NEGATIVE (NEGATIVE); KETONES,URINE 80 mg/dL (NEGATIVE); LEUKOCYTE ESTERASE,URINE LARGE (NEGATIVE); NITRITE,URINE NEGATIVE (NEGATIVE); PROTEIN,URINE NEGATIVE (NEGATIVE); URINE SPECIFIC GRAVITY 1.011; UROBILINOGEN,URINE NEGATIVE mg/dL (<2.0)
[2017-06-21 05:56] LABS: URINE BARBITURATES SCREEN NEGATIVE; URINE METHADONE SCREEN NEGATIVE; URINE OPIATES LOW NEGATIVE; URINE PHENCYCLIDINE SCREEN NEGATIVE
[2017-06-21] MEDS ORDERED: ONDANSETRON 4 MG TAB.RAPDIS ONE (07:13)
--- NOTE | 2017-06-21 07:28 | Non Stress Test Report ---
Non Stress Test Datetime Report Generated by CPN: 06/21/2017 07:28 DEMOGRAPHIC EGA NST: 38.0 EGA NST: 36.0 INDICATION Indication for Study: Ordered by Provider; Other Indication for Study: Ordered by Provider Indication for Study (NST) Other: LC Indication for Study (NST) Other: sent from office MONITORING Monitor Explained: Monitor Explained; Test Explained; Patient Verbalized Understanding Monitor Explained: Monitor Explained; Test Explained; Patient Verbalized Understanding Time on Monitor: 06/21/2017 04:37 Time on Monitor: 06/07/2017 15:40 Time off Monitor: 06/21/2017 05:27 NST Duration: 50 NST INTERVENTIONS NST Interventions: PO Hydration; Reposition Patient Physician Notified NST: Bernstein BABY A: [id number] BABY A Movement : Present Movement : Present Contraction Frequency : 3-5 Contraction Frequency : denies FHR Baseline : 125 FHR Baseline : 130 Accelerations : 15X15 Accelerations : 15X15 Decelerations : None Decelerations : None Variability : Moderate 6-25bpm Variability : Moderate 6-25bpm NST Review: Meets Criteria for Reactive NST NST Review and Verified By : Tara Cassidy RN NST Review and Verified By : Blaze Wilson RN NST Results: Reactive NST REPORT Report Trigger: Send Report
== END 2017-06-21 07:25 | disposition home or self-care (01) ==
LOC: LC 04:18
PROVIDERS: ATTEND Student in an Organized Health Care Education/Training Program
DX: O47.1 False labor at or after 37 completed weeks of gestation (principal); Z3A.38 38 weeks gestation of pregnancy
CPT/HCPCS: 59025; 84112; 81005; 80307; S0119

== ENCOUNTER 2017-07-02 06:41 | Inpatient (IN) | payer OTHER, MEDICAID ==
[2017-07-02 07:43] LABS: APPEARANCE,URINE SLIGHTLY-CLOUDY; BILIRUBIN,URINE NEGATIVE (NEGATIVE); GLUCOSE, URINE NEGATIVE (NEGATIVE); KETONES,URINE NEGATIVE (NEGATIVE); LEUKOCYTE ESTERASE,URINE MODERATE (NEGATIVE); NITRITE,URINE NEGATIVE (NEGATIVE); PROTEIN,URINE NEGATIVE (NEGATIVE); URINE SPECIFIC GRAVITY 1.006; UROBILINOGEN,URINE NEGATIVE mg/dL (<2.0)
[2017-07-02 08:04] LABS: URINE BARBITURATES SCREEN NEGATIVE; URINE METHADONE SCREEN NEGATIVE; URINE OPIATES LOW NEGATIVE; URINE PHENCYCLIDINE SCREEN NEGATIVE
[2017-07-02] MEDS ORDERED: RINGERS SOLUTION,LACTATED 1,000 ML IV PRN (08:52)
[2017-07-02] MEDS ORDERED: OXYTOCIN/NORMAL SALINE 20 UNIT/1,000 ML RTUINJ IV PRN ×2 (08:52→15:16)
[2017-07-02] MEDS ORDERED: RINGERS SOLUTION,LACTATED 300 ML IV ONE (08:52)
[2017-07-02] MEDS ORDERED: VANCOMYCIN HCL INJ 1000 MG VIAL ONE (09:00)
[2017-07-02 09:28] LABS: URINE CREATININE 61.2 mg/dL (16-327); URINE PROTEIN 17.5 mg/dL (<12)
[2017-07-02] MEDS ORDERED: VANCOMYCIN HCL 1,000 MG in DEXTROSE 5%-WATER 250 ML IV SCH (10:00)
[2017-07-02 10:14] LABS: HEMATOCRIT 34.3 % (36.0-47.0); HGB HCT DIFFERENCE 1.7; MEAN CORPUSCULAR HEMOGLOBIN 32.9 pg (27.0-33.4); MEAN CORPUSCULAR VOLUME 94 fl (80-97); RED BLOOD COUNT 3.65 10^6/uL (3.72-5.28); RED CELL DISTRIBUTION WIDTH 12.8 % (11.5-14.0); WHITE BLOOD COUNT 8.9 10^3/uL (4.0-10.5)
[2017-07-02 10:44] LABS: ALANINE AMINOTRANSFERASE 25 U/L (9-52); ALBUMIN 3.3 g/dL (3.5-5.0); ALKALINE PHOSPHATASE 221 U/L (38-126); ANION GAP 7 (5-19); ASPARTATE AMINO TRANSFERASE 23 U/L (14-36); BILIRUBIN,DIRECT 0.3 mg/dL (0.0-0.4); BILIRUBIN,TOTAL 0.3 mg/dL (0.2-1.3); BLOOD UREA NITROGEN 8 mg/dL (7-20); CALCIUM 9.9 mg/dL (8.4-10.2); CARBON DIOXIDE 25 mmol/L (22-30); CHLORIDE 106 mmol/L (98-107); CREATININE RESULT 0.81 mg/dL (0.52-1.25); GLUCOSE 69 mg/dL (75-110); LDH 419 U/L (313-618); POTASSIUM 3.9 mmol/L (3.6-5.0); SODIUM 138.3 mmol/L (137-145); TOTAL PROTEIN 6.2 g/dL (6.3-8.2); URIC ACID 7.3 mg/dL (2.5-6.2)
[2017-07-02] MEDS ORDERED: FENTANYL/BUPIVACAINE/NS/PF 200 MCG/100 ML RTUINJ EPI ONE (12:01)
[2017-07-02] MEDS ORDERED: EPHEDRINE SULFATE INJ 50 MG/1 ML AMPULE ONE (12:01)
[2017-07-02] MEDS ORDERED: BUPIVACAINE HCL 0.25 % INJ/PF (2.5 MG/1 ML) 30 ML VIAL ONE (12:02)
[2017-07-02] MEDS ORDERED: MISOPROSTOL 0.2 MG TABLET ONE (12:03)
[2017-07-02] MEDS ORDERED: LIDOCAINE 1% INJ-PF (10 MG/ML) 30 ML SDV ONE (12:03)
[2017-07-02] MEDS ORDERED: OXYTOCIN/NORMAL SALINE 20 UNIT/1,000 ML RTUINJ ONE ×2 (12:03→17:10)
[2017-07-02] MEDS ORDERED: ACETAMINOPHEN WITH CODEINE #3 TABLET PO PRN ×2 (15:16)
[2017-07-02] MEDS ORDERED: DIPH/PERTUSS(ACELL)/TETANUS VAC/PF 0.5 ML SYR (>=10YO) IM PRN (15:16)
[2017-07-02] MEDS ORDERED: BENZOCAINE/MENTHOL AEROSOL SPRAY 56 ML TOP PRN (15:16)
[2017-07-02] MEDS ORDERED: ZOLPIDEM TARTRATE 5 MG TABLET PO PRN (15:16)
[2017-07-02] MEDS ORDERED: DIBUCAINE 1% OINTMENT 28 GM TP PRN (15:16)
[2017-07-02] MEDS ORDERED: MEASLES,MUMPS&RUBELLA VACC/PF 0.5 ML VIAL SUBCUT PRN (15:16)
[2017-07-02] MEDS ORDERED: NIFEDIPINE 30 MG TAB.ER.24 PO ONE ×2 (16:40→16:48)
[2017-07-02] MEDS ORDERED: ONDANSETRON HCL INJ/PF 4 MG/2 ML SDV ONE (16:48)
--- NOTE | 2017-07-02 17:56 | L&D Progress Notes ---
PROGRESS NOTES Datetime Report Generated by CPN: 07/02/2017 17:55 PROGRESS NOTE Impression Other: maternal temp after delivery Impression Other: maternal temp after delivery Plan Other: antibiotics, tylenol motrin Plan Other: antibiotics, tylenol, motrin Vital Signs : Reviewed Comment: Gent and vanco motrin and tylenol VAGINAL EXAM Dilatation: 4 Effacement: 90 Station: 0 Contractions: 2-4 MEMBRANES Membranes: Intact FETUS A Estimated Weight (gm): 3600 Presentation: Vertex SIGNATURE SIGNATURE: [id number];[id number] SIGNATURE: [id number] SIGNATURE: 14,[id number] SIGNATURE: [id number] SIGNATURE: 14,[id number] Assignment: Lottie Bernstein MD Signature: with User ID: [email or web address] : with User ID: [email or web address]
[2017-07-02] MEDS ORDERED: ACETAMINOPHEN 325 MG TABLET ONE (17:59)
[2017-07-02] MEDS ORDERED: IBUPROFEN 800 MG TABLET ONE (17:59)
--- NOTE | 2017-07-02 18:27 | Delivery Summary ---
Del Sum A-C Datetime Report Generated by CPN: 07/02/2017 18:27 DELIVERY PERSONNEL DELIVERY PERSONNEL: [id number];[id number];[id number] Delivery Doctor:: Erin Hernández CNM Nurse Engraving Plate Maker Certified:: Erin Hernández CNM Labor and Delivery Nurse:: Parish Garcia RNhand screen printer Nurse:: JEAN Vallecillo Plant Guide:: JEAN Olivares Nursery Nurse:: Lori Alexander RN Nursery Nurse:: BEVERLY Garcia Tech/SPARES SCHEDULER: Abdi Lopez CNA MATERNAL INFORMATION Delivery Anesthesia: Epidural Medications After Delivery: Pitocin Bolus-Please Comment; Pitocin Drip 20 Units/1000ml NSS Estimated Blood Loss (ml): 200 Maternal Complications: None Other Maternal Complications: htn in labor Provider Comments: Pt progressed to complete and +2 with strong urge to push. of viable male infant over intact perineum, head delivered loose nuchal reduced, shoulders and body delivered with ease. with spontaneous cry and respirations, to maternal abdomen, cord clamped X2, cut free by pts mother. Spontaneous delivery of placenta via dominique mechanism, appears intact 3 VC. Vagina and perienum inspected, abrasions as above, not bleeding not repaired, hemostasis acheived with external fundal massage and IV pitocin, mother and in stable condition, routine pp care. LABOR SUMMARY EDC: 07/05/2017 00:00 No. Babies in Womb: 1 Attempted: No Labor Anesthesia: Epidural LABOR INFORMATION Reason for Induction: Not Applicable Onset of Labor: 07/02/2017 04:00 Complete Dilatation: 07/02/2017 14:36 Cervical Ripening Agents: Cytotec @ 1000 Oxytocin: N/A Group B Beta Strep: positive Antibiotics # of Doses: 1 Antibiotics Time of Last Dose: 924 Name of Antibiotic Given: Vancomycin Steroids Given: None Reason Steroids Not Administered: Not Applicable MEMBRANES Membranes Rupture Method: Artificial Rupture of Membranes: 07/02/2017 13:25 Length of Rupture (hr): 1.57 Amniotic Fluid Color: Clear Amniotic Fluid Amount: Moderate Amniotic Fluid Odor: Normal STAGES OF LABOR Stage 1 hr: 10 Stage 1 min: 36 Stage 2 hr: 0 Stage 2 min: 23 Stage 3 hr: 0 Stage 3 min: 3 Total Time in Labor hr: 11 Total Time in Labor min: 2 VAGINAL DELIVERY Episiotomy: None Laceration Extension: N/A Laceration Type: None Laceration Repair: Not Applicable Laceration Repair Note: bilateral periuretheral abrasions not bleeding, not repaired Sponge Count Correct: N/A Sharps Count Correct: N/A CSECTION DELIVERY Primary Indication: N/A Secondary Indication: N/A CSection Incidence: N/A Labor: N/A Elective: N/A CSection Incision: N/A BABY A INFORMATION Delivery Date/Time: 07/02/2017 14:59 Method of Delivery: Vaginal Born in Route : No : N/A Forceps: N/A Vacuum Extraction: N/A Shoulder Dystocia : No PRESENTATION/POSITION BABY A Presentation: Cephalic Cephalic Presentation: Vertex Vertex Position: Left Occipital Anterior Breech Presentation: N/A PLACENTA INFORMATION BABY A Placenta Delivery Time : 07/02/2017 15:02 Placenta Method of Delivery: Spontaneous Placenta Status: Delivered SCORES BABY A Heart Rate 1 min: >100 bpm Resp Effort 1 min: Good Cry Reflex Irritability 1 min: Cough or Sneeze or Pulls Away Muscle Tone 1 min: Active Motion Color 1 min: Body [place], Extremities Blue Resuscitation Effort 1 min: Tactile Stimulation SCORE 1 MIN: 9 Heart Rate 5 min: >100 bpm Resp Effort 5 min: Good Cry Reflex Irritability 5 min: Cough or Sneeze or Pulls Away Muscle Tone 5 min: Active Motion Color 5 min: Body [place], Extremities Blue Resuscitation Effort 5 min: N/A SCORE 5 MIN: 9 Resuscitation Effort 10 min: N/A INFANT INFORMATION BABY A Gestational Age at Delivery: 39.4 Gestational Status: Full Term- 39- 40.6 Weeks Infant Outcome : Liveborn Condition : Stable Infant Sex: Male IDENTIFICATION BABY A Infant Verification Date/Time: 07/02/2017 15:27 ID Band Number: [id number] Mother's Name Verified: Yes RN Verifying Infant: Brayan Cadeshanell RN/Olga Montejo RN WEIGHT/LENGTH BABY A Infant Birthweight (gm): 3450 Infant Weight (lb): 7 Infant Weight (oz): 10 Infant Length (in): 21.25 Length (cm): 53.98 CORD INFORMATION BABY A No. Cord Vessels: 3 Nuchal Cord : Around Neck x1, Loose Cord Blood Taken: Yes-For Storage (Mom's Blood type +) Suction: None ASSESSMENT BABY A Complications: None Physical Findings at Delivery: Within Normal Limits; Molding of the Head Respirations: Appears Normal Skin to Skin: Yes Cashier Manager/ALS Called : No Infant Care By: Tara Carranza RN Transferred To: Remains with Mother BABY B INFORMATION : N/A SIGNATURES Assignment: Lottie Bernstein MD Signature: with User ID: [email or web address] : with User ID: [email or web address]
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
[2017-07-02] MEDS: DOCUSATE SODIUM 100 MG CAPSULE PO SCH (21:01)
[2017-07-02] MEDS: FERROUS SULFATE 325 MG TABLET PO SCH (21:01)
[2017-07-02] MEDS ORDERED: GENTAMICIN SULFATE 120 MG in DEXTROSE 5%-WATER 100 ML IV ONE (22:00)
[2017-07-02] MEDS: IBUPROFEN 800 MG TABLET PO SCH (22:27)
[2017-07-02] MEDS: VANCOMYCIN HCL 1,000 MG in DEXTROSE 5%-WATER 250 ML IV SCH (23:22)
[2017-07-03] MEDS: IBUPROFEN 800 MG TABLET PO SCH ×3 (05:56→21:19)
[2017-07-03 07:45] LABS: HEMATOCRIT 25.6 % (36.0-47.0); HGB HCT DIFFERENCE 1.7; MEAN CORPUSCULAR HEMOGLOBIN 33.1 pg (27.0-33.4); MEAN CORPUSCULAR HGB CONC 35.5 g/dL (32.0-36.0); MEAN CORPUSCULAR VOLUME 93 fl (80-97); RED BLOOD COUNT 2.75 10^6/uL (3.72-5.28); RED CELL DISTRIBUTION WIDTH 13.1 % (11.5-14.0); WHITE BLOOD COUNT 8.5 10^3/uL (4.0-10.5)
[2017-07-03 07:59] LABS: HEMOGLOBIN 9.1 g/dL (12.0-15.5)
[2017-07-03] MEDS: FERROUS SULFATE 325 MG TABLET PO SCH ×2 (10:29→18:32)
[2017-07-03] MEDS: DOCUSATE SODIUM 100 MG CAPSULE PO SCH ×2 (10:29→18:32)
[2017-07-03] MEDS: SENNOSIDES/DOCUSATE 8.6-50 MG 1 EACH TABLET PO SCH (10:29)
[2017-07-03] MEDS: NIFEDIPINE 30 MG TAB.ER.24 PO SCH (10:30)
[2017-07-03] MEDS: PRENATAL VITAMIN W-O CA NO5/FE FUMARATE/FA CAPSULE PO SCH (10:30)
[2017-07-03] MEDS: GENTAMICIN SULFATE 100 MG in DEXTROSE 5%-WATER 100.0 ML IV SCH ×2 (10:39→21:20)
--- NOTE | 2017-07-03 10:43 | PDOC PROGRESS REPORT ---
Subjective-OB Subjective: Post Delivery Day: 1 21 year old. Denies any needs at this time, is tired, voiding without difficulty, lochia is stable, pain well controlled. Physical Exam (OB) Vital Signs: Temp Pulse Resp BP Pulse Ox 97.7 F 76 16 130/78 H 100 07/03/17 09:00 07/03/17 09:00 07/03/17 09:00 07/03/17 09:00 07/03/17 09:00 Intake & Output 07/02/17 07/03/17 07/04/17 06:59 06:59 06:59 Weight 60.35 kg - PIH/Pre-Eclampsia DTR's: 1 + Clonus: Negative Headache: Absent Epigastric Pain: No Visual Changes: No - Lochia Lochia Amount: Small 10-25 ml Lochia Color: Rubra/Red - Abdomen Description: Soft, Round Hernia Present: No Fundal Description: Firm, Midline Fundal Height: u/u - u/2 Objective-Diagnostic Laboratory: 07/03/17 07:36 07/02/17 09:55 07/02/17 07/02/17 07/03/17 09:55 09:55 07:36 WBC 8.5 RBC 2.75 L Hgb 9.1 L D Hct 25.6 L MCV 93 MCH 33.1 MCHC 35.5 RDW 13.1 Plt Count 189 Sodium 138.3 Potassium 3.9 Chloride 106 Carbon Dioxide 25 Anion Gap 7 BUN 8 Creatinine 0.81 Est GFR ( Amer) > 60 Est GFR (Non-Af Amer) > 60 Glucose 69 L Uric Acid 7.3 H Calcium 9.9 Total Bilirubin 0.3 AST 23 ALT 25 Alkaline Phosphatase 221 H Total Protein 6.2 L Albumin 3.3 L Blood Type A POSITIVE Antibody Screen NEGATIVE Assessment and Plan(PN) - Assessment and Plan (1) Spontaneous vaginal delivery Is this a current diagnosis for this admission?: Yes Plan: routine pp care (2) Acute blood loss anemia Is this a current diagnosis for this admission?: Yes Plan: ferrous sulfate bid increase dietary iron (3) Chorioamnionitis Qualifiers: Fetus number: single or unspecified fetus Is this a current diagnosis for this admission?: Yes Plan: continue abx for 24 hours (4) Gestational diabetes Qualifiers: Gestational diabetes mellitus control: oral hypoglycemic-controlled Trimester: third trimester Qualified Code(s): O24.415 - Gestational diabetes mellitus in , controlled by oral hypoglycemic drugs Is this a current diagnosis for this admission?: Yes Plan: yearly glucose screening pp screening (5) Pre-eclampsia Qualifiers: Trimester: third trimester Qualified Code(s): O14.93 - Unspecified pre- eclampsia, third trimester Is this a current diagnosis for this admission?: Yes Plan: procardia xl 30 qd continue to monitor - Time Spent with Patient Time with patient: Less than 15 minutes Critical Time spent with patient: Less than 15 minutes Medications reviewed and adjusted accordingly: Yes - Disposition Anticipated Discharge: Home Within: within 48 hours
[2017-07-03] MEDS: VANCOMYCIN HCL 1,000 MG in DEXTROSE 5%-WATER 250 ML IV SCH (11:47)
[2017-07-04] MEDS: IBUPROFEN 800 MG TABLET PO SCH ×2 (05:29→13:32)
[2017-07-04] MEDS: FERROUS SULFATE 325 MG TABLET PO SCH (10:35)
[2017-07-04] MEDS: DOCUSATE SODIUM 100 MG CAPSULE PO SCH (10:35)
[2017-07-04] MEDS: SENNOSIDES/DOCUSATE 8.6-50 MG 1 EACH TABLET PO SCH (10:35)
[2017-07-04] MEDS: PRENATAL VITAMIN W-O CA NO5/FE FUMARATE/FA CAPSULE PO SCH (10:36)
[2017-07-04] MEDS: NIFEDIPINE 30 MG TAB.ER.24 PO SCH (10:38)
--- NOTE | 2017-07-04 14:20 | PDOC PROGRESS REPORT ---
Subjective-OB Subjective: Post Delivery Day: [age] year old. Denies any needs at this time, states lochia is stable, pain well controlled, voiding without difficulty, feels much better. Physical Exam (OB) Vital Signs: Temp Pulse Resp BP Pulse Ox 97.6 F 96 16 155/78 H 99 07/04/17 11:12 07/04/17 11:12 07/04/17 11:12 07/04/17 11:12 07/04/17 11:12 Intake & Output 07/03/17 07/04/17 07/05/17 06:59 06:59 06:59 Intake Total 100 350 Balance 100 350 Weight 60.35 kg - PIH/Pre-Eclampsia DTR's: 1 + Clonus: Negative Headache: Absent Epigastric Pain: No Visual Changes: No - Lochia Lochia Amount: Scant < 10 ml Lochia Color: Rubra/Red - Abdomen Description: Soft, Round Hernia Present: No Fundal Description: Firm Fundal Height: u/u - u/2 Objective-Diagnostic Laboratory: 07/03/17 07:36 07/02/17 09:55 Assessment and Plan(PN) - Assessment and Plan (1) Spontaneous vaginal delivery Is this a current diagnosis for this admission?: Yes (2) Acute blood loss anemia Is this a current diagnosis for this admission?: Yes (3) Chorioamnionitis Qualifiers: Fetus number: single or unspecified fetus Is this a current diagnosis for this admission?: Yes (4) Gestational diabetes Qualifiers: Gestational diabetes mellitus control: oral hypoglycemic-controlled Trimester: third trimester Qualified Code(s): O24.415 - Gestational diabetes mellitus in , controlled by oral hypoglycemic drugs Is this a current diagnosis for this admission?: Yes (5) Pre-eclampsia Qualifiers: Trimester: third trimester Qualified Code(s): O14.93 - Unspecified pre- eclampsia, third trimester Is this a current diagnosis for this admission?: Yes - Time Spent with Patient Medications reviewed and adjusted accordingly: Yes - Disposition Anticipated Discharge: Home
[2017-07-04 15:08] VITALS: BP 130/78
--- NOTE | 2017-07-07 09:55 | PDOC DISCHARGE SUMMARY ---
Final Diagnosis Discharge Date: 07/07/17 - Final Diagnosis (1) Spontaneous vaginal delivery Is this a current diagnosis for this admission?: Yes (2) Acute blood loss anemia Is this a current diagnosis for this admission?: Yes (3) Chorioamnionitis Is this a current diagnosis for this admission?: Yes (5) Gestational diabetes Is this a current diagnosis for this admission?: Yes Discharge Data - Discharge Medication Home Medications: Doxylamine/Pyridoxine HCl [Diclegis Dr 10-10 mg Tablet] 10 mg PO DAILY 05/24/17 Ranitidine HCl [Zantac 150 mg Tablet] 150 mg PO DAILY 05/31/17 Docusate Sodium [Colace 100 mg Capsule] 100 mg PO BID #60 capsule 07/04/17 Ferrous Sulfate [Feosol 325 mg Tablet] 325 mg PO BID #60 tablet 07/04/17 Ibuprofen [Motrin 800 mg Tablet] 800 mg PO Q8 #60 tablet 07/04/17 Nifedipine [Procardia XL 30 mg Tablet] 30 mg PO DAILY #30 tab.er.24 07/04/17 Gestational Age: 39.4 Reason(s) for Admission: Onset of Labor, Gestional Diabetes, Group B Strep Positive Procedures: NST Intrapartum Procedure(s): Spontaneous Vaginal Delivery - Data Baby 1 Male at 1 minute: 8 at 5 minutes: 9 Weight: 3.459 kg Home with Mother: Yes Complications: No - Diagnosis Test Laboratory: Temp Pulse Resp BP Pulse Ox 97.6 F 96 16 130/78 H 99 07/04/17 15:08 07/04/17 15:08 07/04/17 15:08 07/04/17 15:08 07/04/17 15:08 07/02/17 07/02/17 07/03/17 06:48 09:55 07:36 RBC 3.65 L 2.75 L Hgb 12.0 9.1 L D Hct 34.3 L 25.6 L Urine Opiates Screen NEGATIVE - Discharge information/Instructions Discharge Activity: Activity As Tolerated, Pelvic Rest, No tub bath Discharge Diet: Regular Disposition: HOME, SELF-CARE Follow up with: [facility] in: 4, Weeks
== END 2017-07-04 17:31 | disposition home or self-care (01) | DRG 774 ==
LOC: LC 06:41 → LR 07:33 → 2S 19:23
PROVIDERS: ADMIT Obstetrics & Gynecology; ATTEND Obstetrics & Gynecology
PROC: 10E0XZZ Delivery of Products of Conception, External Approach (ICD-10-PCS; principal; 2017-07-02)
PROC: 4A1HXCZ Monitoring of Products of Conception, Cardiac Rate, External Approach (ICD-10-PCS; 2017-07-02)
DX: O24.425 Gestational diabetes mellitus in childbirth, controlled by oral hypoglycemic drugs (principal); O41.1230 Chorioamnionitis, third trimester, not applicable or unspecified; O86.4 Pyrexia of unknown origin following delivery; D62 Acute posthemorrhagic anemia; O99.02 Anemia complicating childbirth; O99.824 Streptococcus B carrier state complicating childbirth; O69.81X0 Labor and delivery complicated by cord around neck, without compression, not applicable or unspecified; O71.82 Other specified trauma to perineum and vulva; Z37.0 Single live birth; Z3A.39 39 weeks gestation of pregnancy; Z88.0 Allergy status to penicillin
CPT/HCPCS: 36415; 80053; 80307; 81005; 82570; 83615; 84156; 84550; 85027; 86592; 86850; 86900; 86901; J1580; J2405; J2590; J3370; J3490; J7060

== ENCOUNTER 2019-02-20 20:42 | Emergency (ER) | payer OTHER ==
[2019-02-20 20:57] VITALS: BP 119/91
== END 2019-02-20 22:38 | disposition left against medical advice (07) ==
LOC: ER 20:42
DX: Z53.21 Procedure and treatment not carried out due to patient leaving prior to being seen by health care provider (principal)

== ENCOUNTER 2020-01-11 17:07 | Emergency (ER) | payer OTHER ==
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
[2020-01-11] MEDS ORDERED: METOCLOPRAMIDE HCL INJ/PF 10 MG/2 ML SDV IV ONE (17:33)
[2020-01-11] MEDS ORDERED: NORMAL SALINE 1000 ML 1,000 ML IV PRN (17:33)
[2020-01-11 18:21] LABS: ABSOLUTE LYMPHOCYTES (AUTO) 0.8 10^3/uL (0.5-4.7); ABSOLUTE MONOCYTES (AUTO) 0.2 10^3/uL (0.1-1.4); ABSOLUTE NEUT (AUTO) 8.4 10^3/uL (1.7-8.2); BASOPHILS % (AUTO) 0.1 % (0-2); HEMATOCRIT 39.3 % (36.0-47.0); MEAN CORPUSCULAR HEMOGLOBIN 32.2 pg (27.0-33.4); MEAN CORPUSCULAR HGB CONC 35.7 g/dL (32.0-36.0); MEAN CORPUSCULAR VOLUME 90 fl (80-97); MONOCYTES % (AUTO) 2.4 % (3-13); PLATELET COUNT 413 10^3/uL (150-450); RED BLOOD COUNT 4.36 10^6/uL (3.72-5.28); RED CELL DISTRIBUTION WIDTH 12.8 % (11.5-14.0); SEGMENTED NEUTROPHILS % (AUTO) 89.5 % (42-78); TOTAL CELLS COUNTED % (AUTO) 100 %; WHITE BLOOD COUNT 9.4 10^3/uL (4.0-10.5)
[2020-01-11 18:28] LABS: APPEARANCE,URINE SLIGHTLY-CLOUDY; BILIRUBIN,URINE NEGATIVE (NEGATIVE); COLOR,URINE YELLOW; GLUCOSE, URINE NEGATIVE (NEGATIVE); KETONES,URINE 80 mg/dL (NEGATIVE); PROTEIN,URINE 100 mg/dL (NEGATIVE); URINE SPECIFIC GRAVITY 1.025; UROBILINOGEN,URINE NEGATIVE mg/dL (<2.0)
[2020-01-11 18:52] LABS: ALBUMIN 5.1 g/dL (3.5-5.0); ALKALINE PHOSPHATASE 45 U/L (38-126); ANION GAP 15 (5-19); ASPARTATE AMINO TRANSFERASE 23 U/L (14-36); BILIRUBIN,DIRECT 0.1 mg/dL (0.0-0.4); BILIRUBIN,TOTAL 0.8 mg/dL (0.2-1.3); BLOOD UREA NITROGEN 10 mg/dL (7-20); CALCIUM 9.7 mg/dL (8.4-10.2); CARBON DIOXIDE 23 mmol/L (22-30); CHLORIDE 97 mmol/L (98-107); GLUCOSE 92 mg/dL (75-110); POTASSIUM 3.3 mmol/L (3.6-5.0); TOTAL PROTEIN 7.9 g/dL (6.3-8.2)
[2020-01-11] MEDS ORDERED: POTASSIUM CHLORIDE 10 MEQ TABLET.ER PO ONE (20:03)
[2020-01-11] MEDS ORDERED: PROMETHAZINE HCL 25 MG SUPP (4 SUPP/ER DISP) PR ONE (20:04)
--- NOTE | 2020-01-11 20:11 | ER Document Report ---
ED GI/ - General Chief Complaint: Nausea/Vomiting Stated Complaint: VOMITING,ABDOMINAL PAIN,DIARRHEA Time Seen by Provider: 01/11/20 17:28 Mode of Arrival: Ambulatory Information source: Patient Notes: 24-year-old female presented to ED for complaint of hyperemesis gravidarum. She is is 10 weeks with her second child. She is 2 para 1. She states she has been nauseated off and on since she became it is been worse for the last 4 days. She states she does have Phenergan suppositories at home. She states she has not had any bloody diarrhea or any bloody emesis. She states she just feels dehydrated and that she has had multiple times with her first . She does have a history of gastric ulcers as well. She has no abdominal pain pelvic pain vaginal bleeding trouble urinating discharge or odor at this time. She has no pelvic pain at this time. She was seen in the triage area and started on IV fluids and 10 mg of Reglan IV. She states she is feeling much better at this time. She states she does have an appointment with her [employer] OFFICER tomorrow. I will treat her with 40 mg of potassium for her hypokalemia, give her a 4 pack of Phenergan suppositories for her nausea and vomiting, and gave her a prescription for the Reglan that is helped her nausea and vomiting today. She will follow-up with her [employer] OFFICER tomorrow. Patient was able to verbal ize understanding and agreement with treatment plan. TRAVEL OUTSIDE OF THE [place] IN LAST 30 DAYS: No - HPI Patient complains to provider of: Abdominal pain, , Vomiting Onset: Other - Throughout her worse for the last 4 days Timing/Duration: Intermittent Quality of pain: Cramping Severity at maximum: Severe Severity in ED: Mild Pain Level: 1 Location: Other - Lower abdomen. No: Pelvis Menstrual period history: : 2 Para: 1 Associated symptoms: Nausea, Vomiting Exacerbated by: Other - Vomiting Relieved by: Denies Similar symptoms previously: Yes Recently seen / treated by doctor: Yes - Related Data Allergies/Adverse Reactions: Penicillins Allergy (Intermediate, Verified 11/07/19 23:49) Hives Past Medical History - General Information source: Patient - Social History Smoking Status: Never Smoker Frequency of alcohol use: None Drug Abuse: None Lives with: Family Family History: Arthritis, Thyroid Disfunction Patient has suicidal ideation: No Patient has homicidal ideation: No - Past Medical History Cardiac Medical History: Reports: None Pulmonary Medical History: Reports: None EENT Medical History: Reports: None Neurological Medical History: Reports: None Endocrine Medical History: Reports: None Renal/ Medical History: Reports: None Malignancy Medical History: Reports: None GI Medical History: Reports: Other - Hyperemesis gravidarum Musculoskeletal Medical History: Reports Hx Musculoskeletal Trauma - Multiple fractures ankles wrist ribs knee and elbow Skin Medical History: Reports None Psychiatric Medical History: Reports: Hx Anxiety, Hx Depression - and anxiety Traumatic Medical History: Reports: Hx Fractures - Ankles knee wrist elbow ribs Infectious Medical History: Reports: None Surgical Hx: Negative Past Surgical History: Reports: None - Immunizations Immunizations up to date: Yes Hx Diphtheria, Pertussis, Tetanus Vaccination: Yes Review of Systems - Review of Systems Constitutional: No symptoms reported EENT: No symptoms reported Cardiovascular: No symptoms reported Respiratory: No symptoms reported Gastrointestinal: Abdominal pain, Nausea, Vomiting Genitourinary: No symptoms reported Female Genitourinary: Musculoskeletal: No symptoms reported Skin: No symptoms reported Hematologic/Lymphatic: No symptoms reported Neurological/Psychological: No symptoms reported -: Yes All other systems reviewed and negative Physical Exam - Vital signs Vitals: Temp Pulse Resp BP Pulse Ox 98.1 F 86 16 129/57 H 99 01/11/20 17:27 01/11/20 17:27 01/11/20 17:27 01/11/20 17:27 01/11/20 17:27 Interpretation: Normal - General General appearance: Appears well, Alert - HEENT Head: Normocephalic, Atraumatic Eyes: Normal Pupils: PERRL - Respiratory Respiratory status: No respiratory distress Chest status: Nontender Breath sounds: Normal Chest palpation: Normal - Cardiovascular Rhythm: Regular Heart sounds: Normal auscultation Murmur: No - Abdominal Inspection: Normal Distension: No distension Bowel sounds: Hyperactive Tenderness: Tender - Normal tenderness lower abdomen Organomegaly: No organomegaly - Back Back: Normal, Nontender - Extremities General upper extremity: Normal inspection, Nontender, Normal color, Normal ROM, Normal temperature General lower extremity: Normal inspection, Nontender, Normal color, Normal ROM, Normal temperature, Normal weight bearing. No: Eduar's sign - Neurological Neuro grossly intact: Yes Cognition: Normal Orientation: AAOx4 [place] Coma Scale Eye Opening: Spontaneous [place] Coma Scale Verbal: Oriented [place] Coma Scale Motor: Obeys Commands [place] Coma Scale Total: 15 Speech: Normal Motor strength normal: LUE, RUE, LLE, RLE Sensory: Normal - Psychological Associated symptoms: Normal affect, Normal mood - Skin Skin Temperature: Warm Skin Moisture: Dry Skin Color: Normal Course - Vital Signs Vital signs: Temp Pulse Resp BP Pulse Ox 98.1 F 86 16 129/57 H 99 01/11/20 17:27 01/11/20 17:27 01/11/20 17:27 01/11/20 17:27 01/11/20 17:27 - Laboratory Result Diagrams: 01/11/20 17:58 01/11/20 17:58 Laboratory results interpreted by me: 01/11/20 01/11/20 01/11/20 17:48 17:58 17:58 Lymph % (Auto) 8.0 L [place] % (Auto) 2.4 L Absolute Neuts (auto) 8.4 H Seg Neutrophils % 89.5 H Sodium 134.9 L Potassium 3.3 L Chloride 97 L Albumin 5.1 H Urine Protein 100 H Urine Ketones 80 H Urine Blood SMALL H Discharge - Discharge Clinical Impression: Hyperemesis gravidarum, Hypokalemia due to excessive gastrointestinal loss of potassium Condition: Stable Disposition: HOME, SELF-CARE Additional Instructions: Hyperemesis Gravidarum Hyperemesis gravidarum is the medical term for severe vomiting during . We don't know exactly why it occurs, but it's a common problem. Dehydration can occur. This reduces blood flow to the placenta, decreasing the baby's nourishment. The baby will also become dehydrated. There can be harmful changes in blood sodium, potassium, or acid balance. Our goal is to correct, and prevent, dehydration. For severe cases, we give IV fluids. Antinausea medication will be prescribed. (Don't be concerned about " defects" -- the risk to you and your baby from the hyperemesis is the biggest problem. The antinausea medication is very safe at this stage of .) Call the doctor if you have vaginal bleeding, abdominal pain, severe light headedness or weakness, or other alarming symptoms. Reglan (Metoclopramide) Reglan has been prescribed. This medicine affects the stomach and intestines. It can be used to treat nausea and vomiting, to prevent reflux of stomach acid up into the esophagus, or to increase the contractions of the stomach and intestines. It is often prescribed for esophagitis, and for paralysis of the stomach in diabetics. Reglan can cause either mild restlessness or drowsiness. You should contact the doctor at once if you become extremely restless, anxious, or cannot sleep, or if you develop uncontrollable motions of the lips, tongue, or jaw. Do not take alcohol with this medicine. Do not drive or operate machinery until you have been taking this medicine long enough to know how it affects you. Call the doctor if you develop abdominal pains, lightheadedness, black stool, or blood in the stool or vomitus. Antinausea Medication You have been given a medication to suppress nausea and vomiting. This type of medication can be given as a shot, pill, or suppository. It will usually last for many hours. Pills and shots usually last six to eight hours, suppositories last about 12 hours. For the typical illness, only one or two doses of the medication may be necessary. Mild lightheadedness may occur. This type of medicine can cause drowsine ss. Do not drive or operate dangerous machinery while under its influence. Do not mix with alcohol. See your doctor at once if you have muscle spasms or tightness, or uncontrollable motions (particularly of the neck, mouth, or jaw). Persistent vomiting or severe lightheadedness should also be evaluated by the physician. Intravenous (IV) Fluids As part of your care today, you received intravenous (IV) fluids. IV fluids are administered to patients who are dehydrated or to those who have certain chemical (electrolyte) abnormalities that need correcting. FOLLOW-UP CARE: If you have been referred to a physician for follow-up care, call the physicians office for an appointment as you were instructed or within the next two days. If you experience worsening or a significant change in your symptoms, notify the physician immediately or return to the Emergency Department at any time for re-evaluation. Keep your appointment with your [employer] OFFICER tomorrow. Please review all medications with your [employer] OFFICER. Prescriptions: Metoclopramide HCl [Reglan 10 mg Tablet] 10 mg PO Q6HP PRN #20 tablet PRN Reason: For Nausea/Vomiting Forms: Elevated Blood Pressure
[2020-01-11 20:28] VITALS: BP 107/53
== END 2020-01-11 20:29 | disposition home or self-care (01) ==
LOC: ER 17:07
DX: O21.1 Hyperemesis gravidarum with metabolic disturbance (principal); O26.891 Other specified pregnancy related conditions, first trimester; R10.819 Abdominal tenderness, unspecified site; R10.9 Unspecified abdominal pain; Z3A.10 10 weeks gestation of pregnancy; Z87.11 Personal history of peptic ulcer disease; Z88.0 Allergy status to penicillin
CPT/HCPCS: 99283; 96361; 96374; 36415; 83690; 85025; 80053; 81001; J3490; J2765; J7030

== ENCOUNTER 2020-03-01 10:57 | Inpatient (IN) | payer OTHER ==
[2020-03-01] MEDS ORDERED: NORMAL SALINE 1000 ML 1,000 ML IV ONE (11:11)
[2020-03-01] MEDS ORDERED: METOCLOPRAMIDE HCL INJ/PF 10 MG/2 ML SDV IV ONE (11:11)
--- NOTE | 2020-03-01 11:14 | ER Document Report ---
ED Medical Screen (RME) - General Chief Complaint: Vomiting Stated Complaint: VOMITING Time Seen by Provider: 03/01/20 11:09 Mode of Arrival: Wheelchair Information source: Patient Notes: 24-year-old female presented to ED for complaint of nausea and vomiting. She states she is 14 weeks and has had nausea and vomiting throughout her . She has had a ultrasound this time. She denies any vaginal bleeding at this time. She states she just cannot keep any food or fluids down. Labs Reglan, and IV fluids have been ordered. Patient will be seen by another provider. I have greeted and performed a rapid initial assessment of this patient. A comprehensive ED assessment and evaluation of the patient, analysis of test results and completion of medical decision making process will be conducted by an additional ED providers. TRAVEL OUTSIDE OF THE [place] IN LAST 30 DAYS: No - Related Data Allergies/Adverse Reactions: Penicillins Allergy (Intermediate, Verified 11/07/19 23:49) Hives Past Medical History Renal/ Medical History: Denies: Hx Peritoneal Dialysis Musculoskeltal Medical History: Reports Hx Musculoskeletal Trauma - Multiple fractures ankles wrist ribs knee and elbow Psychiatric Medical History: Reports: Hx Anxiety, Hx Depression - and anxiety Traumatic Medical History: Reports: Hx Fractures - Ankles knee wrist elbow ribs - Immunizations Immunizations up to date: Yes Hx Diphtheria, Pertussis, Tetanus Vaccination: Yes Physical Exam - Vital signs Vitals: Temp Pulse Resp BP Pulse Ox 97.6 F 125 H 24 H 109/62 100 03/01/20 11:03 03/01/20 11:03 03/01/20 11:03 03/01/20 11:03 03/01/20 11:03 Course - Vital Signs Vital signs: Temp Pulse Resp BP Pulse Ox 97.6 F 125 H 24 H 109/62 100 03/01/20 11:03 03/01/20 11:03 03/01/20 11:03 03/01/20 11:03 03/01/20 11:03
[2020-03-01] MEDS ORDERED: DIPHENHYDRAMINE HCL 50 MG/ML VIAL IV ONE (11:37)
[2020-03-01] MEDS ORDERED: DEXTROSE 5%-NORMAL SALINE 1,000 ML IV ONE (11:46)
--- NOTE | 2020-03-01 11:46 | ER Document Report ---
ED GI/ - General Chief Complaint: Nausea/Vomiting Stated Complaint: VOMITING Time Seen by Provider: 03/01/20 11:09 Primary Care Provider: ZACKERY BORJAS MD [Primary Care Provider] - Follow up as needed Mode of Arrival: Wheelchair Notes: CHIEF COMPLAINT: Hyperemesis in HPI: 24-year-old female who is a G2, presenting for evaluation of continued vomiting over the last 2 days. Patient with history of hyperemesis in and is on Reglan at home states it is not helping this time. Patient states that with her first she had to be admitted and had a feeding tube placed because of the hyperemesis. [facility] Denies vaginal bleeding or discharge ROS: See HPI - all other systems were reviewed and are otherwise negative Constitutional: no fever Eyes: no drainage, no blurred vision ENT: no runny nose, no sore throat Cardiovascular: no chest pain Resp: no SOB, no cough GI: + vomiting, no diarrhea, no abdominal pain : no dysuria Integumentary: no rash Allergy: no hives Musculoskeletal: no extremity pain or swelling Neurological: no numbness/tingling, no weakness MEDICATIONS: I agree with the patient medications as charted by the RN. ALLERGIES: I agree with the allergies as charted by the RN. PAST MEDICAL HISTORY/PAST SURGICAL HISTORY: Reviewed and agree as charted by RN. SOCIAL HISTORY: Reviewed and agree as charted by RN. FAMILY HISTORY: No significant familial comorbid conditions directly related to patient complaint EXAM: Reviewed vital signs as charted by RN. CONSTITUTIONAL: Alert and oriented and responds appropriately to questions. Slightly ill-appearing; well-nourished, actively vomiting during exam HEAD: Normocephalic; atraumatic EYES: PERRL; Conjunctivae clear, sclerae non-icteric ENT: normal nose; no rhinorrhea; moist mucous membranes; pharynx without lesions noted, no uvula edema or deviation, no tonsillar hypertrophy, phonation normal NECK: Supple without meningismus; non-tender; no cervical lymphadenopathy, no masses CARD: Tachycardic; no murmurs, no clicks, no rubs, no gallops; symmetric distal pulses RESP: Normal chest excursion without splinting or tachypnea; breath sounds clear and equal bilaterally; no wheezes, no rhonchi, no rales, pulse oximetry ABD/GI: Normal bowel sounds; non-distended; soft, non-tender, no rebound, no guarding BACK: The back appears normal and is non-tender to palpation, there is no CVA tenderness EXT: Normal ROM in all joints; non-tender to palpation; no cyanosis, no effusions, no edema SKIN: Normal color for age and race; warm; dry; good turgor; no acute lesions noted NEURO: Moves all extremities equally; Motor and sensory function intact PSYCH: The patient's mood and manner are appropriate. Grooming and personal hygiene are appropriate. MDM: 24-year-old female with hyperemesis in the setting of . Initial s creening labs ordered in triage process, will add additional IV fluids, Reglan ordered in triage process. TRAVEL OUTSIDE OF THE [place] IN LAST 30 DAYS: No - Related Data Allergies/Adverse Reactions: Penicillins Allergy (Intermediate, Verified 11/07/19 23:49) Hives Past Medical History - General Information source: Patient - Social History Smoking Status: Unknown if Ever Smoked Family History: Arthritis, Thyroid Disfunction Patient has suicidal ideation: No Patient has homicidal ideation: No Renal/ Medical History: Denies: Hx Peritoneal Dialysis Musculoskeletal Medical History: Reports Hx Musculoskeletal Trauma - Multiple fractures ankles wrist ribs knee and elbow Psychiatric Medical History: Reports: Hx Anxiety, Hx Depression - and anxiety Traumatic Medical History: Reports: Hx Fractures - Ankles knee wrist elbow ribs - Immunizations Immunizations up to date: Yes Hx Diphtheria, Pertussis, Tetanus Vaccination: Yes Physical Exam - Vital signs Vitals: Temp Pulse Resp BP Pulse Ox 97.6 F 125 H 24 H 109/62 100 03/01/20 11:03 03/01/20 11:03 03/01/20 11:03 03/01/20 11:03 03/01/20 11:03 Course - Re-evaluation Re-evalutation: 03/01/20 12:32 Patient potassium critically low we will give IV potassium as patient is still having significant nausea and unlikely to tolerate oral potassium 03/01/20 12:38 Patient sodium was also noted to be low at 121. Potassium was 2.3. Will [address] patient on monitor, EKG, have ordered IV potassium, she is receiving IV fluids, given the lab findings she will likely need admission for further observation 03/01/20 12:[address] Katharine Wilson [employer]. We discussed the patient and her lab results. Aware that some labs are still pending. Aware of the fluid orders. Patient is requesting ice chips at this time. She is aware that she will need to be admitted given the lab abnormalities and need for replacement. - Vital Signs Vital signs: Temp Pulse Resp BP Pulse Ox 97.6 F 125 H 24 H 109/62 100 03/01/20 11:03 03/01/20 11:03 03/01/20 11:03 03/01/20 11:03 03/01/20 11:03 - Laboratory Result Diagrams: 03/01/20 11:20 03/01/20 11:20 Laboratory results interpreted by me: 03/01/20 11:20 Sodium 121.7 L Potassium 2.3 L* Chloride 76 L Glucose 174 H Calcium 10.4 H Total Bilirubin 1.6 H AST 47 H Discharge - Discharge Clinical Impression: Hyperemesis gravidarum, Hyponatremia, Hypokalemia Condition: Fair Disposition: ADMITTED OBSERVATION Admitting Provider: [facility] - Dr. Katharine Wilson Unit Admitted: Labor and Delivery Referrals: ZACKERY BORJAS MD [Primary Care Provider] - Follow up as needed
[2020-03-01 12:00] LABS: ALBUMIN 4.8 g/dL (3.5-5.0); ALKALINE PHOSPHATASE 72 U/L (38-126); ANION GAP 17 (5-19); ASPARTATE AMINO TRANSFERASE 47 U/L (14-36); BILIRUBIN,DIRECT 0.2 mg/dL (0.0-0.4); BILIRUBIN,TOTAL 1.6 mg/dL (0.2-1.3); BLOOD UREA NITROGEN 17 mg/dL (7-20); CALCIUM 10.4 mg/dL (8.4-10.2); CARBON DIOXIDE 29 mmol/L (22-30); CHLORIDE 76 mmol/L (98-107); GLUCOSE 174 mg/dL (75-110); TOTAL PROTEIN 7.6 g/dL (6.3-8.2)
[2020-03-01 12:30] LABS: POTASSIUM 2.3 mmol/L (3.6-5.0)
[2020-03-01] MEDS: POTASSI CL 20 MEQ/50 ML RIDER 20 MEQ/50 ML RTUPB IV SCH ×2 (13:02→15:06)
[2020-03-01 13:04] LABS: ABSOLUTE LYMPHOCYTES (AUTO) 0.9 10^3/uL (0.5-4.7); ABSOLUTE MONOCYTES (AUTO) 0.5 10^3/uL (0.1-1.4); BASOPHILS % (AUTO) 0.2 % (0-2); EOSINOPHILS % (AUTO) 0.3 % (0-6); HEMATOCRIT 29.5 % (36.0-47.0); HEMOGLOBIN 11.5 g/dL (12.0-15.5); LYMPHOCYTES % (AUTO) 9.2 % (13-45); MEAN CORPUSCULAR HEMOGLOBIN 33.6 pg (27.0-33.4); MEAN CORPUSCULAR VOLUME 86 fl (80-97); MONOCYTES % (AUTO) 5.5 % (3-13); PLATELET COUNT 419 10^3/uL (150-450); RED BLOOD COUNT 3.44 10^6/uL (3.72-5.28); RED CELL DISTRIBUTION WIDTH 13.6 % (11.5-14.0); SEGMENTED NEUTROPHILS % (AUTO) 84.8 % (42-78); TOTAL CELLS COUNTED % (AUTO) 100 %; WHITE BLOOD COUNT 9.4 10^3/uL (4.0-10.5)
[2020-03-01 13:15] LABS: MEAN CORPUSCULAR HGB CONC 39.1 g/dL (32.0-36.0)
[2020-03-01 13:41] LABS: APPEARANCE,URINE SLIGHTLY-CLOUDY; BILIRUBIN,URINE NEGATIVE (NEGATIVE); COLOR,URINE YELLOW; GLUCOSE, URINE >=500 mg/dL (NEGATIVE); KETONES,URINE 80 mg/dL (NEGATIVE); PROTEIN,URINE 30 mg/dL (NEGATIVE); URINE SPECIFIC GRAVITY 1.014; UROBILINOGEN,URINE NEGATIVE mg/dL (<2.0)
[2020-03-01 14:54] LABS: URINE AMPHETAMINES SCREEN NEGATIVE; URINE BARBITURATES SCREEN NEGATIVE; URINE BENZODIAZEPINES SCREEN NEGATIVE; URINE COCAINE SCREEN NEGATIVE; URINE METHADONE SCREEN NEGATIVE; URINE PHENCYCLIDINE SCREEN NEGATIVE
[2020-03-01 15:06] LABS: URINE MARIJUANA (THC) SCREEN UNCONFIRMED POSITIVE
--- NOTE | 2020-03-01 15:26 | PDOC H&P ---
History of Present Illness Admission Date/PCP: 03/01/20 13:08 ZACKERY BORJAS MD Patient complains of: nausea and vomiting 20 times a day x 4 days. 14 wks History of Present Illness: ARTUR CHRISTOPHER is a 24 year old female @ 14+ wks EGA presented to ER with c/o nausea/vomiting "more than 20 times a day for 4 days". Patient indicates in her previous she also had severe hyperemesis and evidently vomited her entire . She told the ER doctor that she required a "feeding tube" during her last . She denied illegal drug use however her urine tox screen on this admission is positive for THC. She has abnormal electrolyte values. She is noted to be spitting continuously into a blue bag during our conversation. Also is asking for food and drink at the time of her history conversation. Past Medical History Past Medical History: Indicates a history of preeclampsia and gestational diabetes and previous Medical History: Other Endocrine Medical History: Reports: Gestational Diabetes Psychiatric Medical History: Reports: Depression - and anxiety Social History Information Source: Patient Lives with: Spouse/Significant other Smoking Status: Unknown if Ever Smoked Hx Recreational Drug Use: Yes Drugs: Marijuana - +THC on utox today. however, denies drug use Family History Family History: Arthritis, Thyroid Disfunction Parental Family History Reviewed: Yes Children Family History Reviewed: Yes Sibling(s) Family History Reviewed.: Yes Medication/Allergy Allergies/Adverse Reactions: Penicillins Allergy (Intermediate, Verified 11/07/19 23:49) Hives Review of Systems Constitutional: PRESENT: as per HPI Physical Exam - Physical Exam Vital Signs: Temp Pulse Resp BP Pulse Ox 97.6 F 125 H 22 H 109/62 100 03/01/20 11:03 03/01/20 11:03 03/01/20 13:27 03/01/20 11:03 03/01/20 14:00 Intake & Output 02/29/20 03/01/20 03/02/20 06:59 06:59 06:59 Intake Total 2049 Balance 2049 Weight 39.1 kg Result Laboratory Results: 03/01/20 12:47 03/01/20 11:20 03/01/20 03/01/20 03/01/20 11:20 11:20 12:47 WBC Cancelled 9.4 RBC Cancelled 3.44 L Hgb Cancelled 11.5 L Hct Cancelled 29.5 L MCV Cancelled 86 MCH Cancelled 33.6 H MCHC Cancelled 39.1 H RDW Cancelled 13.6 Plt Count Cancelled 419 Seg Neutrophils % Cancelled 84.8 H Sodium 121.7 L Potassium 2.3 L* Chloride 76 L Carbon Dioxide 29 Anion Gap 17 BUN 17 Creatinine 0.56 Est GFR ( Amer) > 60 Glucose 174 H Calcium 10.4 H Total Bilirubin 1.6 H AST 47 H Alkaline Phosphatase 72 Total Protein 7.6 Albumin 4.8 Urine Color Urine Appearance Urine pH Ur Specific [place] Urine Protein Urine Glucose (UA) Urine Ketones Urine Blood Urine RBC (Auto) 03/01/20 13:25 WBC RBC Hgb Hct MCV MCH MCHC RDW Plt Count Seg Neutrophils % Sodium Potassium Chloride Carbon Dioxide Anion Gap BUN Creatinine Est GFR ( Amer) Glucose Calcium Total Bilirubin AST Alkaline Phosphatase Total Protein Albumin Urine Color YELLOW Urine Appearance SLIGHTLY-CLOUDY Urine pH 7.0 Ur Specific [place] 1.014 Urine Protein 30 H Urine Glucose (UA) >=500 H Urine Ketones 80 H Urine Blood MODERATE H Urine RBC (Auto) 9 Assessment & Plan - Diagnosis (1) Cannabinoid hyperemesis syndrome Is this a current diagnosis for this admission?: Yes (2) Hyperemesis gravidarum Is this a current diagnosis for this admission?: Yes (3) Hypokalemia Is this a current diagnosis for this admission?: Yes (4) Hyponatremia Is this a current diagnosis for this admission?: Yes - Time Time Spent: 30 to 50 Minutes Critical Time spent with patient: 15-24 minutes Medications reviewed and adjusted accordingly: Yes Anticipated discharge: Home Within: within 48 hours - Inpatient Certification Based on my medical assessment, after consideration of the patient's comorbidities, presenting symptoms, or acuity I expect that the services needed warrant INPATIENT care.: Yes I certify that my determination is in accordance with my understanding of Medicare's requirements for reasonable and necessary INPATIENT services [42 CFR 412.3e].: Yes Medical Necessity: Need For IV Fluids - electrolyte replacement - Plan Summary Plan Summary: electrolyte replacement, antiemetics,, IV fluids, cannaboid cessation
[2020-03-01] MEDS ORDERED: PROMETHAZINE HCL INJ 25 MG/1 ML VIAL ONE (15:30)
[2020-03-01] MEDS: DIPHENHYDRAMINE HCL 50 MG/ML VIAL IV PRN (15:51)
[2020-03-01] MEDS: PROMETHAZINE HCL INJ 50 MG/1 ML VIAL IM PRN (16:10)
[2020-03-01] MEDS: METOCLOPRAMIDE HCL INJ/PF 10 MG/2 ML SDV IV SCH (17:34)
[2020-03-01] MEDS: DEXTROSE 5%-1/2 NORMAL SALINE 1,000 ML IV PRN (17:55)
--- NOTE | 2020-03-01 18:05 | EKG REPORT ---
SEVERITY:- ABNORMAL ECG - SINUS TACHYCARDIA NONSPECIFIC ST-T CHANGES DIFFUSE LVH : Confirmed by: Jorge Ojeda MD 01-Mar-2020 18:04:22
[2020-03-01] MEDS: PANTOPRAZOLE SODIUM 40 MG VIAL IV SCH (22:21)
[2020-03-02] MEDS: DIPHENHYDRAMINE HCL 50 MG/ML VIAL IV PRN ×4 (00:51→23:03)
[2020-03-02] MEDS: METOCLOPRAMIDE HCL INJ/PF 10 MG/2 ML SDV IV SCH ×5 (00:52→23:00)
[2020-03-02] MEDS: DEXTROSE 5%-1/2 NORMAL SALINE 1,000 ML IV PRN ×2 (00:58→22:58)
[2020-03-02] MEDS: PROMETHAZINE HCL INJ 50 MG/1 ML VIAL IM PRN ×2 (04:48→17:02)
[2020-03-02 07:32] LABS: ALKALINE PHOSPHATASE 35 U/L (38-126); ANION GAP 7 (5-19); ASPARTATE AMINO TRANSFERASE 32 U/L (14-36); BILIRUBIN,TOTAL 0.8 mg/dL (0.2-1.3); BLOOD UREA NITROGEN 4 mg/dL (7-20); CALCIUM 8.4 mg/dL (8.4-10.2); CARBON DIOXIDE 27 mmol/L (22-30); CHLORIDE 97 mmol/L (98-107); GLUCOSE 99 mg/dL (75-110); TOTAL PROTEIN 5.1 g/dL (6.3-8.2)
[2020-03-02 07:40] LABS: POTASSIUM 2.5 mmol/L (3.6-5.0)
[2020-03-02] MEDS: POTASSIUM CHLORIDE 20 MEQ/50 ML RTU IV SCH ×2 (09:00→14:43)
--- NOTE | 2020-03-02 10:38 | PDOC PROGRESS REPORT ---
Subjective Progress Note for:: 03/02/20 Subjective:: pt states she feels better Reason For Visit: ,HYPEREMESIS Physical Exam - Physical Exam Vital Signs: Temp Pulse Resp BP Pulse Ox 98.0 F 93 18 128/61 H 100 03/02/20 07:40 03/02/20 07:40 03/02/20 07:40 03/02/20 07:40 03/02/20 07:40 Intake & Output 03/01/20 03/02/20 03/03/20 06:59 06:59 06:59 Intake Total 3391 Balance 3391 Weight 39.1 kg General appearance: PRESENT: no acute distress Respiratory exam: PRESENT: clear to auscultation drew Cardiovascular exam: PRESENT: RRR Result Laboratory Results: 03/01/20 12:47 03/02/20 06:46 03/01/20 03/01/20 03/01/20 11:20 11:20 12:47 WBC Cancelled 9.4 RBC Cancelled 3.44 L Hgb Cancelled 11.5 L Hct Cancelled 29.5 L MCV Cancelled 86 MCH Cancelled 33.6 H MCHC Cancelled 39.1 H RDW Cancelled 13.6 Plt Count Cancelled 419 Seg Neutrophils % Cancelled 84.8 H Sodium 121.7 L Potassium 2.3 L* Chloride 76 L Carbon Dioxide 29 Anion Gap 17 BUN 17 Creatinine 0.56 Est GFR ( Amer) > 60 Glucose 174 H Calcium 10.4 H Total Bilirubin 1.6 H AST 47 H Alkaline Phosphatase 72 Total Protein 7.6 Albumin 4.8 TSH Urine Color Urine Appearance Urine pH Ur Specific [place] Urine Protein Urine Glucose (UA) Urine Ketones Urine Blood Urine RBC (Auto) 03/01/20 03/02/20 03/02/20 13:25 06:46 06:46 WBC RBC Hgb Hct MCV MCH MCHC RDW Plt Count Seg Neutrophils % Sodium 130.9 L Potassium 2.5 L* Chloride 97 L Carbon Dioxide 27 Anion Gap 7 BUN 4 L Creatinine 0.34 L Est GFR ( Amer) > 60 Glucose 99 Calcium 8.4 Total Bilirubin 0.8 AST 32 Alkaline Phosphatase 35 L Total Protein 5.1 L Albumin 3.0 L TSH < 0.01 L Urine Color YELLOW Urine Appearance SLIGHTLY-CLOUDY Urine pH 7.0 Ur Specific [place] 1.014 Urine Protein 30 H Urine Glucose (UA) >=500 H Urine Ketones 80 H Urine Blood MODERATE H Urine RBC (Auto) 9 Assessment & Plan - Time Time Spent with patient: Less than 15 minutes Medications reviewed and adjusted accordingly: Yes Anticipated discharge: Home Within: within 48 hours - Plan Summary Plan Summary: continue with present plan of management
[2020-03-02] MEDS: PANTOPRAZOLE SODIUM 40 MG VIAL IV SCH ×2 (11:07→18:06)
[2020-03-03] MEDS: DIPHENHYDRAMINE HCL 50 MG/ML VIAL IV PRN ×3 (05:14→18:20)
[2020-03-03] MEDS: METOCLOPRAMIDE HCL INJ/PF 10 MG/2 ML SDV IV SCH ×3 (05:17→18:20)
--- NOTE | 2020-03-03 07:23 | PDOC PROGRESS REPORT ---
Subjective Progress Note for:: 03/03/20 Subjective:: pt states she threw up this morning and does not feel well Reason For Visit: ,HYPEREMESIS Physical Exam - Physical Exam Vital Signs: Temp Pulse Resp BP Pulse Ox 97.9 F 98 18 138/67 H 100 03/03/20 07:06 03/03/20 07:06 03/03/20 07:06 03/03/20 07:06 03/03/20 07:06 Intake & Output 03/02/20 03/03/20 03/04/20 06:59 06:59 06:59 Intake Total 3835 2938 Balance 3835 2938 Weight 39.1 kg General appearance: PRESENT: no acute distress Respiratory exam: PRESENT: clear to auscultation drew Cardiovascular exam: PRESENT: RRR Result Laboratory Results: 03/01/20 12:47 03/02/20 06:46 03/02/20 03/02/20 06:46 06:46 Sodium 130.9 L Potassium 2.5 L* Chloride 97 L Carbon Dioxide 27 Anion Gap 7 BUN 4 L Creatinine 0.34 L Est GFR ( Amer) > 60 Glucose 99 Calcium 8.4 Total Bilirubin 0.8 AST 32 Alkaline Phosphatase 35 L Total Protein 5.1 L Albumin 3.0 L TSH < 0.01 L Assessment & Plan - Diagnosis (1) Cannabinoid hyperemesis syndrome Is this a current diagnosis for this admission?: Yes (2) Hyperemesis gravidarum Is this a current diagnosis for this admission?: Yes (3) Hypokalemia Is this a current diagnosis for this admission?: Yes - Time Time Spent with patient: Less than 15 minutes Anticipated discharge: Home Within: within 48 hours - Plan Summary Plan Summary: ad zofran and continue IV fluids and potasium replacement
[2020-03-03] MEDS ORDERED: ONDANSETRON HCL 8 MG TABLET PO SCH (07:30)
[2020-03-03] MEDS: PROMETHAZINE HCL INJ 50 MG/1 ML VIAL IM PRN (08:10)
[2020-03-03] MEDS: DEXTROSE 5%-1/2 NORMAL SALINE 1,000 ML IV PRN (08:14)
[2020-03-03 08:34] LABS: ALBUMIN 2.8 g/dL (3.5-5.0); ALKALINE PHOSPHATASE 38 U/L (38-126); ANION GAP 6 (5-19); ASPARTATE AMINO TRANSFERASE 24 U/L (14-36); BILIRUBIN,TOTAL 0.3 mg/dL (0.2-1.3); BLOOD UREA NITROGEN 2 mg/dL (7-20); CALCIUM 8.4 mg/dL (8.4-10.2); CARBON DIOXIDE 25 mmol/L (22-30); CHLORIDE 103 mmol/L (98-107); GLUCOSE 115 mg/dL (75-110); TOTAL PROTEIN 5.1 g/dL (6.3-8.2)
[2020-03-03 08:39] LABS: POTASSIUM 2.7 mmol/L (3.6-5.0)
[2020-03-03] MEDS: PANTOPRAZOLE SODIUM 40 MG VIAL IV SCH ×2 (10:05→18:20)
[2020-03-03] MEDS ORDERED: ONDANSETRON HCL 8 MG TABLET ONE ×2 (14:49→23:21)
[2020-03-03] MEDS: ONDANSETRON HCL 8 MG TABLET PO PRN ×2 (14:56→23:24)
[2020-03-03] MEDS ORDERED: POTASSI CL 20 MEQ/50 ML RIDER 20 MEQ/50 ML RTUPB IV SCH (15:00)
--- NOTE | 2020-03-03 15:18 | PDOC CONSULTATION ---
Consultation Consult Date: 03/03/20 Attending physician:: ADELAIDA REINA Provider Consulted: MARA URIOSTEGUI Consult reason:: Hypokalemia History of Present Illness Admission Date/PCP: 03/01/20 13:08 ZACKERY BORJAS MD History of Present Illness: ARTUR CHRISTOPHER is a 24 year old female who is 14 weeks who comes and admitted by the [facility] service for nausea and vomiting, determined to be due to a combination of hyperemesis gravidarum and cannabis associated hyperemesis. Her potassium was noted to be low and she was given 40 mEq IV. She was also put on D5 half-normal saline. She was switched to this after her sodium started to trend up, because initially it was low, also likely due to dehydration. She is received fairly copious IV fluids. She does not take any diuretics at home. She is not on any medications that should affect her potassium balance. She was noted to have a physiologic abnormality in her TSH which is to be expected for this point in her . Her potassium only came up a little bit and so she got 40 mEq of potassium on the second day. Her potassium did come up some, up to 2.7 today. Hospitalist was consulted for hypokalemia. Past Medical History Endocrine Medical History: Reports: Gestational Diabetes Psychiatric Medical History: Reports: Depression - and anxiety Social History Lives with: Spouse/Significant other Smoking Status: Unknown if Ever Smoked Electronic Cigarette use?: No Frequency of Alcohol Use: None Hx Recreational Drug Use: Yes Drugs: Marijuana - +THC on utox today. however, denies drug use Hx Prescription Drug Abuse: No Family History Family History: Arthritis, Thyroid Disfunction Parental Family History Reviewed: Yes Children Family History Reviewed: Yes Sibling(s) Family History Reviewed.: Yes Medication/Allergy Home Medications: Hydroxyzine HCl [Atarax 10 mg Tablet] 25 mg PO Q8HP PRN 03/01/20 Metoclopramide HCl [Reglan 10 mg Tablet] 10 mg PO BIDBS 03/01/20 Allergies/Adverse Reactions: Penicillins Allergy (Intermediate, Verified 11/07/19 23:49) Hives Review of Systems All systems: reviewed and no additional remarkable complaints except as stated - all systems were reviewed and negative except as noted in the HPI Physical Exam Vital Signs: Temp Pulse Resp BP Pulse Ox 97.6 F 94 18 142/68 H 100 03/03/20 11:10 03/03/20 11:10 03/03/20 11:10 03/03/20 11:10 03/03/20 11:10 Intake & Output 03/02/20 03/03/20 03/04/20 06:59 06:59 06:59 Intake Total 3835 3938 Output Total 55 Balance 3835 3938 -55 Weight 39.1 kg General appearance: PRESENT: no acute distress, cooperative, thin Head exam: PRESENT: atraumatic, normocephalic Eye exam: PRESENT: EOMI Ear exam: PRESENT: normal external ear exam Mouth exam: PRESENT: moist Neck exam: PRESENT: full ROM. ABSENT: JVD Neurological exam: PRESENT: awake, oriented to person, oriented to place, oriented to situation Skin exam: PRESENT: dry, warm Results Laboratory Results: 03/01/20 12:47 03/03/20 07:49 03/03/20 03/03/20 07:49 07:49 Sodium 133.6 L Potassium 2.7 L* Chloride 103 Carbon Dioxide 25 Anion Gap 6 BUN 2 L Creatinine 0.35 L Est GFR ( Amer) > 60 Glucose 115 H Calcium 8.4 Magnesium 1.9 Total Bilirubin 0.3 AST 24 Alkaline Phosphatase 38 Total Protein 5.1 L Albumin 2.8 L Assessment and Plan - Diagnosis (1) Hypokalemia Is this a current diagnosis for this admission?: Yes Plan: I suspect her hypokalemia was likely from GI losses associated with her hyperemesis. Her magnesium level was normal. Her levels have not come up appropriately because she is been getting a lot of IV fluids as well, and her fluids did not have potassium in them. She is likely to be intracellularly depleted as well as depleted in her serum. Along with the potassium she is been given has probably been taken up intracellularly to replace the stores there, so we should see a lag and the rise of the serum potassium. I given her an extra 40 mEq of potassium IV, and I have added potassium to her IV fluids. We will repeat her metabolic panel in the morning to assess the efficacy. - Time Time Spent with patient: 25-34 minutes
[2020-03-03] MEDS: POTASSI CL 20 MEQ/D5-1/2NS 1L 1,000 ML IV PRN (15:31)
[2020-03-03] MEDS: POTASSI CL 20 MEQ/50 ML RIDER 20 MEQ/50 ML RTUPB IV SCH ×2 (15:31→18:21)
[2020-03-04] MEDS: METOCLOPRAMIDE HCL INJ/PF 10 MG/2 ML SDV IV SCH ×2 (00:03→06:46)
[2020-03-04] MEDS: DIPHENHYDRAMINE HCL 50 MG/ML VIAL IV PRN ×2 (00:04→06:46)
[2020-03-04] MEDS: POTASSI CL 20 MEQ/D5-1/2NS 1L 1,000 ML IV PRN ×2 (00:07→07:50)
[2020-03-04] MEDS ORDERED: ONDANSETRON HCL 8 MG TABLET ONE (07:46)
[2020-03-04] MEDS: ONDANSETRON HCL 8 MG TABLET PO PRN (07:49)
--- NOTE | 2020-03-04 08:44 | PDOC PROGRESS REPORT ---
Subjective Progress Note for:: 03/04/20 Subjective:: No adverse events overnight. VSS. Good UOP. Reason For Visit: ,HYPEREMESIS Physical Exam Vital Signs: Temp Pulse Resp BP Pulse Ox 98.4 F 89 18 135/63 H 100 03/04/20 07:31 03/04/20 07:31 03/04/20 07:31 03/04/20 07:31 03/04/20 07:31 Intake & Output 03/03/20 03/04/20 03/05/20 06:59 06:59 06:59 Intake Total 3938 3150 965 Output Total 55 Balance 3938 3095 965 Weight 44.9 kg General appearance: PRESENT: no acute distress, cooperative, thin Head exam: PRESENT: atraumatic, normocephalic Eye exam: PRESENT: EOMI Ear exam: PRESENT: normal external ear exam Mouth exam: PRESENT: moist Neck exam: PRESENT: full ROM. ABSENT: JVD Neurological exam: PRESENT: awake, oriented to person, oriented to place, oriented to situation Skin exam: PRESENT: dry, warm Results Laboratory Results: 03/01/20 12:47 03/04/20 05:58 03/03/20 03/04/20 07:49 05:58 Potassium 3.3 L Magnesium 1.9 Assessment and Plan - Diagnosis (1) Hypokalemia Is this a current diagnosis for this admission?: Yes Plan: Potassium up to 3.3 today. Will give another 20 mEq KCl, continue IVF with potassium. Will sign off. - Time Time Spent with patient: Less than 15 minutes
[2020-03-04] MEDS: PANTOPRAZOLE SODIUM 40 MG VIAL IV SCH (09:17)
--- NOTE | 2020-03-04 10:06 | PDOC DISCHARGE SUMMARY ---
Impression - Admit/DC Date/PCP Admission Date/Primary Care Provider: 03/01/20 13:08 ZACKERY BORJAS MD Discharge Date: 03/04/20 - Discharge Diagnosis (1) Cannabinoid hyperemesis syndrome Is this a current diagnosis for this admission?: Yes (2) Hyperemesis gravidarum Is this a current diagnosis for this admission?: Yes (3) Hypokalemia Is this a current diagnosis for this admission?: Yes (4) Hyponatremia Is this a current diagnosis for this admission?: Yes - Assessment Summary: patient has responded well to antiemetics and fluids. she is sitting up in bed and states she feels "much better" Desires to go home. no vomiting over night. - Additional Information Resuscitation Status: Full Code - Real diet as needed. Discharge Diet: Other (Comments) Discharge Activity: Activity As Tolerated Referrals: ZACKERY BORJAS MD [Primary Care Provider] - Follow up as needed Prescriptions: Ondansetron HCl [Zofran 8 mg Tablet] 8 mg PO Q8HP PRN #30 tablet PRN Reason: Promethazine HCl [Phenergan 25 mg Supp.rect] 1 supp MO Q6H #12 supp.rect Potassium Chloride 20 meq PO AC #10 tab.er.prt Pantoprazole Sodium [Protonix [address] Tablet] 40 mg PO QAMPM #60 tablet.dr Home Medications: Hydroxyzine HCl [Atarax 10 mg Tablet] 25 mg PO Q8HP PRN 03/01/20 Metoclopramide HCl [Reglan 10 mg Tablet] 10 mg PO BIDBS 03/01/20 Ondansetron HCl [Zofran 8 mg Tablet] 8 mg PO Q8HP PRN #30 tablet 03/04/20 Pantoprazole Sodium [Protonix [address] Tablet] 40 mg PO QAMPM #60 tablet.dr 03/04/20 Potassium Chloride 20 meq PO AC #10 tab.er.prt 03/04/20 Promethazine HCl [Phenergan 25 mg Supp.rect] 1 supp MO Q6H #12 supp.rect 03/04/20 History of Present Illiness History of Present Illness: ARTUR CHRISTOPHER is a 24 year old female @ 14+ wks EGA presented to ER with c/o nausea/vomiting "more than 20 times a day for 4 days". Patient indicates in her previous she also had severe hyperemesis and evidently vomited her entire . She told the ER doctor that she required a "feeding tube" during her last . She denied illegal drug use however her urine tox screen on this admission is positive for THC. She has abnormal electrolyte values. She is noted to be spitting continuously into a blue bag during our conversation. Also is asking for food and drink at the time of her history conversation. Physical Exam - Physical Exam Vital Signs: Temp Pulse Resp BP Pulse Ox 98.4 F 89 18 135/63 H 100 03/04/20 07:31 03/04/20 07:31 03/04/20 07:31 03/04/20 07:31 03/04/20 07:31 Intake & Output 03/03/20 03/04/20 03/05/20 06:59 06:59 06:59 Intake Total 3938 3150 965 Output Total 55 Balance 3938 3095 965 Weight 44.9 kg Results Laboratory Results: WBC 9.4 10^3/uL (4.0-10.5) 03/01/20 12:47 RBC 3.44 10^6/uL (3.72-5.28) L 03/01/20 12:47 Hgb 11.5 g/dL (12.0-15.5) L 03/01/20 12:47 Hct 29.5 % (36.0-47.0) L 03/01/20 12:47 MCV 86 fl (80-97) 03/01/20 12:47 MCH 33.6 pg (27.0-33.4) H 03/01/20 12:47 MCHC 39.1 g/dL (32.0-36.0) H 03/01/20 12:47 RDW 13.6 % (11.5-14.0) 03/01/20 12:47 Plt Count 419 10^3/uL (150-450) 03/01/20 12:47 Lymph % (Auto) 9.2 % (13-45) L 03/01/20 12:47 [place] % (Auto) 5.5 % (3-13) 03/01/20 12:47 Eos % (Auto) 0.3 % (0-6) 03/01/20 12:47 Baso % (Auto) 0.2 % (0-2) 03/01/20 12:47 Absolute Neuts (auto) 8.0 10^3/uL (1.7-8.2) 03/01/20 12:47 Absolute Lymphs (auto) 0.9 10^3/uL (0.5-4.7) 03/01/20 12:47 Absolute Monos (auto) 0.5 10^3/uL (0.1-1.4) 03/01/20 12:47 Absolute Eos (auto) 0.0 10^3/uL (0.0-0.6) 03/01/20 12:47 Absolute Basos (auto) 0.0 10^3/uL (0.0-0.2) 03/01/20 12:47 Seg Neutrophils % 84.8 % (42-78) H 03/01/20 12:47 Platelet Estimate Cancelled 03/01/20 11:20 Sodium 133.6 mmol/L (137-145) L 03/03/20 07:49 Potassium 3.3 mmol/L (3.6-5.0) L 03/04/20 05:58 Chloride 103 mmol/L (98-107) 03/03/20 07:49 Carbon Dioxide 25 mmol/L (22-30) 03/03/20 07:49 Anion Gap 6 (5-19) 03/03/20 07:49 BUN 2 mg/dL (7-20) L 03/03/20 07:49 Creatinine 0.35 mg/dL (0.52-1.25) L 03/03/20 07:49 Est GFR ( Amer) > 60 (>60) 03/03/20 07:49 Est GFR (MDRD) Non-Af > 60 (>60) 03/03/20 07:49 Glucose 115 mg/dL (75-110) H 03/03/20 07:49 Hemoglobin A1c % 4.6 % (4.7-6.0) L 03/02/20 06:46 Calcium 8.4 mg/dL (8.4-10.2) 03/03/20 07:49 Magnesium 1.9 mg/dL (1.6-2.3) 03/03/20 07:49 Total Bilirubin 0.3 mg/dL (0.2-1.3) 03/03/20 07:49 Direct Bilirubin 0.0 mg/dL (0.0-0.4) 03/03/20 07:49 Neonat Total Bilirubin Not Reportable 03/03/20 07:49 Neonat Direct Bilirubin Not Reportable 03/03/20 07:49 Neonat Indirect Bili Not Reportable 03/03/20 07:49 AST 24 U/L (14-36) 03/03/20 07:49 ALT 18 U/L (<35) 03/03/20 07:49 Alkaline Phosphatase 38 U/L (38-126) 03/03/20 07:49 Total Protein 5.1 g/dL (6.3-8.2) L 03/03/20 07:49 Albumin 2.8 g/dL (3.5-5.0) L 03/03/20 07:49 TSH < 0.01 uIU/mL (0.47-4.68) L 03/02/20 06:46 Beta HCG, Quant 185899.00 mIU/mL (0.0-6.15) H 03/01/20 11:20 Total Beta HCG POSITIVE (NEGATIVE) 03/01/20 11:20 Urine Color YELLOW 03/01/20 13:25 Urine Appearance SLIGHTLY-CLOUDY 03/01/20 13:25 Urine pH 7.0 (5.0-9.0) 03/01/20 13:25 Ur Specific [place] 1.014 03/01/20 13:25 Urine Protein 30 mg/dL (NEGATIVE) H 03/01/20 13:25 Urine Glucose (UA) >=500 mg/dL (NEGATIVE) H 03/01/20 13:25 Urine Ketones 80 mg/dL (NEGATIVE) H 03/01/20 13:25 Urine Blood MODERATE (NEGATIVE) H 03/01/20 13:25 Urine Nitrite (Reflex) NEGATIVE (NEGATIVE) 03/01/20 13:25 Urine Bilirubin NEGATIVE (NEGATIVE) 03/01/20 13:25 Urine Urobilinogen NEGATIVE mg/dL (<2.0) 03/01/20 13:25 Leukocyte Esterase Rfl SMALL (NEGATIVE) H 03/01/20 13:25 Urine RBC (Auto) 9 /HPF 03/01/20 13:25 U Hyaline Cast (Auto) 5 /LPF 03/01/20 13:25 Urine Bacteria (Auto) 3+ /HPF 03/01/20 13:25 Urine WBC (Reflex) 9 /HPF 03/01/20 13:25 Squamous Epi Cells Auto 4 /HPF 03/01/20 13:25 Urine Mucus (Auto) FEW /LPF 03/01/20 13:25 Urine Ascorbic Acid NEGATIVE (NEGATIVE) 03/01/20 13:25 Urine Opiates Screen NEGATIVE 03/01/20 13:25 Urine Methadone Screen NEGATIVE 03/01/20 13:25 Ur Barbiturates Screen NEGATIVE 03/01/20 13:25 Ur Phencyclidine Scrn NEGATIVE 03/01/20 13:25 Ur Amphetamines Screen NEGATIVE 03/01/20 13:25 U Benzodiazepines Scrn NEGATIVE 03/01/20 13:25 Urine Cocaine Screen NEGATIVE 03/01/20 13:25 U Marijuana (THC) Screen UNCONFIRMED POSITIVE 03/01/20 13:25 Slides for Path Review Cancelled 03/01/20 11:20 Stroke Is this a Stroke Patient?: No Acute Heart Failure - Is this a Heart Failure Patient?: No
[2020-03-04 10:27] VITALS: BP 116/78
== END 2020-03-04 11:06 | disposition home or self-care (01) | DRG 832 ==
LOC: ER 10:57 → OBSVTOIN 13:08 → EH 13:08 → 2N 14:43 → 2S 03-02 13:21
PROVIDERS: ADMIT Obstetrics & Gynecology; ATTEND Obstetrics & Gynecology
DX: O21.1 Hyperemesis gravidarum with metabolic disturbance (principal); O99.321 Drug use complicating pregnancy, first trimester; O99.341 Other mental disorders complicating pregnancy, first trimester; F41.8 Other specified anxiety disorders; F12.90 Cannabis use, unspecified, uncomplicated; Z3A.14 14 weeks gestation of pregnancy
CPT/HCPCS: 36415; 80053; 80307; 80349; 81001; 83036; 83735; 84132; 84443; 84702; 85025; 93005; 93010; 96361; 96365; 96366; 96375; 99285; C9113; G0480; J1200; J2550; J2765; J3480; J7030; J7042; S0119

== ENCOUNTER 2020-03-15 16:45 | Emergency (ER) | payer OTHER ==
[2020-03-15] MEDS ORDERED: DIPHENHYDRAMINE HCL 50 MG/ML VIAL IV ONE (16:57)
[2020-03-15] MEDS ORDERED: METOCLOPRAMIDE HCL INJ/PF 10 MG/2 ML SDV IV ONE (16:57)
--- NOTE | 2020-03-15 16:57 | ER Document Report ---
ED Medical Screen (RME) - General Chief Complaint: Abdominal Pain Stated Complaint: ABDOMINAL PAIN,VOMITING Time Seen by Provider: 03/15/20 16:52 Primary Care Provider: ZACKERY BORJAS MD [Primary Care Provider] - Follow up as needed Mode of Arrival: Ambulatory Information source: Patient Notes: 24-year-old female presents to ED for hyperemesis gravidarum. She is 2 para 1. She has had hyperemesis gravidarum for both pregnancies. She states she was just admitted to the hospital 10 days ago for the same thing. She states she started throwing up 2 days ago and is not keeping any food and fluid down. She states she is on Zofran and suppositories for this and nothing seems to help. She states she had at the first time also. She states she is tried bonny snaps bonny candy and everything that she could buy on [employer] and nothing seems to help. Patient is alert oriented respirations regular nonlabored speaking in full sentences. I have greeted and performed a rapid initial assessment of this patient. A comprehensive ED assessment and evaluation of the patient, analysis of test results and completion of medical decision making process will be conducted by an additional ED providers. TRAVEL OUTSIDE OF THE [place] IN LAST 30 DAYS: No - Related Data Allergies/Adverse Reactions: Penicillins Allergy (Intermediate, Verified 11/07/19 23:49) Hives Past Medical History Renal/ Medical History: Denies: Hx Peritoneal Dialysis Musculoskeltal Medical History: Reports Hx Musculoskeletal Trauma - Multiple fractures ankles wrist ribs knee and elbow Psychiatric Medical History: Reports: Hx Anxiety, Hx Depression - and anxiety Traumatic Medical History: Reports: Hx Fractures - Ankles knee wrist elbow ribs - Immunizations Immunizations up to date: Yes Hx Diphtheria, Pertussis, Tetanus Vaccination: Yes Physical Exam - Vital signs Vitals: Temp Pulse Resp BP Pulse Ox 97.7 F 121 H 22 H 156/89 H 98 03/15/20 16:51 03/15/20 16:51 03/15/20 16:51 03/15/20 16:51 03/15/20 16:51 Course - Vital Signs Vital signs: Temp Pulse Resp BP Pulse Ox 97.7 F 121 H 22 H 156/89 H 98 03/15/20 16:51 03/15/20 16:51 03/15/20 16:51 03/15/20 16:51 03/15/20 16:51 Doctor's Discharge - Discharge Referrals: ZACKERY BORJAS MD [Primary Care Provider] - Follow up as needed
[2020-03-15] MEDS: NORMAL SALINE 1000 ML 1,000 ML IV PRN ×2 (17:17→19:00)
--- NOTE | 2020-03-15 17:50 | ER Document Report ---
ED General - General Chief Complaint: Vomiting Stated Complaint: ABDOMINAL PAIN,VOMITING Time Seen by Provider: 03/15/20 16:52 Primary Care Provider: ZACKERY BORJAS MD [Primary Care Provider] - Follow up as needed Mode of Arrival: Ambulatory TRAVEL OUTSIDE OF THE [place] IN LAST 30 DAYS: No - HPI Notes: Patient is a 24-year-old G2, P1 female approximately 16 weeks gestation who comes into the emergency department for evaluation of excessive vomiting. She is a history of hyperemesis gravidarum, had to be admitted to the hospital for this in the past. She states she is vomited at least 20 times in the last 24 hours. She denies any hematemesis. She is still urinating. Patient states she had this with her last as well. She is 16 weeks gestational age, states she is not feeling the fetus move as of yet. She denies any vaginal bleeding or discharge. No pain. - Related Data Allergies/Adverse Reactions: Penicillins Allergy (Intermediate, Verified 11/07/19 23:49) Hives Home Medications: Zofran, Phenergan suppositories Past Medical History - General Information source: Patient - Social History Smoking Status: Never Smoker Chew tobacco use (# tins/day): No Drug Abuse: None Family History: Arthritis, Thyroid Disfunction Patient has homicidal ideation: No Renal/ Medical History: Denies: Hx Peritoneal Dialysis Musculoskeletal Medical History: Reports Hx Musculoskeletal Trauma - Multiple fractures ankles wrist ribs knee and elbow Psychiatric Medical History: Reports: Hx Anxiety, Hx Depression - and anxiety Traumatic Medical History: Reports: Hx Fractures - Ankles knee wrist elbow ribs - Immunizations Immunizations up to date: Yes Hx Diphtheria, Pertussis, Tetanus Vaccination: Yes Review of Systems - Review of Systems Gastrointestinal: See HPI Female Genitourinary: See HPI -: Yes All other systems reviewed and negative Physical Exam - Vital signs Vitals: Temp Pulse Resp BP Pulse Ox 97.7 F 121 H 22 H 156/89 H 98 03/15/20 16:51 03/15/20 16:51 03/15/20 16:51 03/15/20 16:51 03/15/20 16:51 - Notes Notes: Vital signs reviewed, please refer to chart. Head is normocephalic, atraumatic. Pupils equal round, reactive to light. Neck is supple without meningismus. Heart is regular rate and rhythm. Lungs are clear to auscultation bilaterally. Abdomen is gravid, nontender, normoactive bowel sounds throughout. Extremities without cyanosis, clubbing. Posterior calves are nontender. Peripheral pulses are equal. Skin is warm and dry. Patient is awake, alert, neurological exam is nonfocal. Course - Re-evaluation Re-evalutation: 03/15/20 17:49 Patient presents emergency department for evaluation. Laboratory investigations, medications, IV fluids were ordered as through triage. Patient is stable at this time, awaiting response to medications, we will continue to monitor. 03/15/20 19:47 Patient had intermittent emesis and nausea, but she did have overall improvement after Reglan, Benadryl, Phenergan, Zofran, fluids. Her labs showed a mild hyponatremia, but she was actually more hyponatremic when she was discharged from the hospital after her recent hospital stay. I did perform a bedside ultrasound. I verify the presence of a single intrauterine , with a heart rate in the 150s, positive movement. It does appear, after examining the patient, that there is some aspect of anxiety to this patient's nausea. We talked at length about breathing exercises, visualization, and other tricks that may help her with her nausea. She is amenable to trying these plans at home. I will send her home with Phenergan suppositories, as she is currently out of those, and she is to [facility]-up [facility]. She is to return to the ED with worsening. - Vital Signs Vital signs: Temp Pulse Resp BP Pulse Ox 98.7 F 121 H 22 H 156/89 H 98 03/15/20 16:52 03/15/20 16:51 03/15/20 16:51 03/15/20 16:51 03/15/20 16:51 - Laboratory Result Diagrams: 03/15/20 19:10 03/15/20 19:10 Laboratory results interpreted by me: 03/15/20 03/15/20 03/15/20 19:10 19:10 19:10 WBC 11.5 H RBC 3.67 L Hct 34.2 L MCH 33.5 H RDW 14.3 H Lymph % (Auto) 5.1 L [place] % (Auto) 0.9 L Absolute Neuts (auto) 10.8 H Seg Neutrophils % 94.0 H Sodium 134.0 L Creatinine 0.35 L Glucose 114 H Urine Protein 30 H Urine Glucose (UA) 50 H Urine Ketones TRACE H Urine Urobilinogen 2.0 H Discharge - Discharge Clinical Impression: Nausea and vomiting during prior to 22 weeks gestation Condition: Stable Disposition: HOME, SELF-CARE Instructions: Vomiting ([facility]) Additional Instructions: Stay hydrated with small, frequent sips of fluids. Continue your home medications for nausea. Follow-up with [facility] on Wednesday. Return to the emergency department with worsening or new concerning symptoms of any sort. Referrals: ZACKERY BORJAS MD [Primary Care Provider] - Follow up as needed
[2020-03-15] MEDS ORDERED: PROMETHAZINE HCL INJ 25 MG/1 ML VIAL IV ONE (19:02)
[2020-03-15] MEDS ORDERED: ONDANSETRON HCL INJ/PF 4 MG/2 ML SDV IV ONE (19:03)
[2020-03-15 19:26] LABS: ABSOLUTE LYMPHOCYTES (AUTO) 0.6 10^3/uL (0.5-4.7); ABSOLUTE MONOCYTES (AUTO) 0.1 10^3/uL (0.1-1.4); ABSOLUTE NEUT (AUTO) 10.8 10^3/uL (1.7-8.2); HEMATOCRIT 34.2 % (36.0-47.0); HEMOGLOBIN 12.3 g/dL (12.0-15.5); LYMPHOCYTES % (AUTO) 5.1 % (13-45); MEAN CORPUSCULAR HEMOGLOBIN 33.5 pg (27.0-33.4); MEAN CORPUSCULAR HGB CONC 35.9 g/dL (32.0-36.0); MONOCYTES % (AUTO) 0.9 % (3-13); PLATELET COUNT 431 10^3/uL (150-450); RED BLOOD COUNT 3.67 10^6/uL (3.72-5.28); RED CELL DISTRIBUTION WIDTH 14.3 % (11.5-14.0); TOTAL CELLS COUNTED % (AUTO) 100 %; WHITE BLOOD COUNT 11.5 10^3/uL (4.0-10.5)
[2020-03-15 19:29] LABS: APPEARANCE,URINE SLIGHTLY-CLOUDY; BILIRUBIN,URINE NEGATIVE (NEGATIVE); COLOR,URINE YELLOW; GLUCOSE, URINE 50 mg/dL (NEGATIVE); KETONES,URINE TRACE mg/dL (NEGATIVE); PROTEIN,URINE 30 mg/dL (NEGATIVE); URINE SPECIFIC GRAVITY 1.025
[2020-03-15 19:31] LABS: MEAN CORPUSCULAR VOLUME 93 fl (80-97)
[2020-03-15 19:42] LABS: ALBUMIN 3.9 g/dL (3.5-5.0); ALKALINE PHOSPHATASE 64 U/L (38-126); ANION GAP 10 (5-19); ASPARTATE AMINO TRANSFERASE 18 U/L (14-36); BILIRUBIN,TOTAL 0.2 mg/dL (0.2-1.3); BLOOD UREA NITROGEN 8 mg/dL (7-20); CALCIUM 9.1 mg/dL (8.4-10.2); CARBON DIOXIDE 23 mmol/L (22-30); CHLORIDE 101 mmol/L (98-107); GLUCOSE 114 mg/dL (75-110); POTASSIUM 3.9 mmol/L (3.6-5.0); TOTAL PROTEIN 6.7 g/dL (6.3-8.2)
[2020-03-15] MEDS ORDERED: PROMETHAZINE HCL 25 MG SUPP (4 SUPP/ER DISP) PR ONE (19:46)
[2020-03-15 20:41] VITALS: BP 155/85
== END 2020-03-15 20:50 | disposition home or self-care (01) ==
LOC: ER 16:45
DX: O21.1 Hyperemesis gravidarum with metabolic disturbance (principal); Z3A.16 16 weeks gestation of pregnancy; Z79.899 Other long term (current) drug therapy; Z88.0 Allergy status to penicillin
CPT/HCPCS: 99284; 96361; 96374; 96375; 36415; 85025; 80053; 81001; J1200; J3490; J2765; J2550; J2405; J7030

== ENCOUNTER 2020-03-27 10:40 | Emergency (ER) | payer OTHER ==
[2020-03-27] MEDS ORDERED: NORMAL SALINE 1000 ML 1,000 ML IV ONE (10:57)
[2020-03-27] MEDS ORDERED: DIPHENHYDRAMINE HCL 50 MG/ML VIAL IV ONE (10:57)
[2020-03-27] MEDS ORDERED: METOCLOPRAMIDE HCL INJ/PF 10 MG/2 ML SDV IV ONE (10:57)
--- NOTE | 2020-03-27 10:58 | ER Document Report ---
ED Medical Screen (RME) - General Chief Complaint: Vomiting Stated Complaint: VOMITING Time Seen by Provider: 03/27/20 10:55 Primary Care Provider: ZACKERY BORJAS MD [Primary Care Provider] - Follow up as needed Information source: Patient Notes: Patient presents complaining of hyperemesis gravidarum. Patient states that she had similar symptoms with previous . Patient is currently 19 weeks G2, P1. Patient states she is vomited 30 times today and has not had any urine output for 24 hours. Patient complains of generalized abdominal pain. Patient denies any vaginal bleeding or discharge. I have greeted and performed a rapid initial assessment of this patient. A comprehensive ED assessment and evaluation of the patient, analysis of test results and completion of the medical decision making process will be conducted by additional ED providers. TRAVEL OUTSIDE OF THE [place] IN LAST 30 DAYS: No - Related Data Allergies/Adverse Reactions: Penicillins Allergy (Intermediate, Verified 03/27/20 10:55) Hives Past Medical History Renal/ Medical History: Denies: Hx Peritoneal Dialysis Musculoskeltal Medical History: Reports Hx Musculoskeletal Trauma - Multiple fractures ankles wrist ribs knee and elbow Psychiatric Medical History: Reports: Hx Anxiety, Hx Depression - and anxiety Traumatic Medical History: Reports: Hx Fractures - Ankles knee wrist elbow ribs - Immunizations Immunizations up to date: Yes Hx Diphtheria, Pertussis, Tetanus Vaccination: Yes Physical Exam - Vital signs Vitals: Temp Pulse BP Pulse Ox 97.9 F 116 H 112/80 100 03/27/20 10:44 03/27/20 10:44 03/27/20 10:44 03/27/20 10:44 - Abdominal Inspection: Gravid female Tenderness: Tender - Generalized abdominal tenderness Course - Vital Signs Vital signs: Temp Pulse Resp BP Pulse Ox 97.9 F 116 H 112/80 100 03/27/20 10:44 03/27/20 10:44 03/27/20 10:44 03/27/20 10:44 Doctor's Discharge - Discharge Referrals: ZACKERY BORJAS MD [Primary Care Provider] - Follow up as needed
--- NOTE | 2020-03-27 11:31 | ER Document Report ---
ED GI/ - General Chief Complaint: Nausea/Vomiting Stated Complaint: VOMITING Time Seen by Provider: 03/27/20 10:55 Primary Care Provider: ZACKERY BORJAS MD [ACTIVE STAFF] - Follow up as needed Notes: CHIEF COMPLAINT: Hyperemesis of HPI: 24-year-old female presenting to the emergency department complaining of multiple episodes of vomiting over the last 2 to 3 days states she is thrown up at least 30 times in the last 24 hours has not urinated in the last 24 hours reports generalized abdominal discomfort no vaginal bleeding or discharge. States she is on both Zofran and Reglan at home without improvement in the hyperemesis. This is the patient's second . States she has been admitted during this previously for hyperemesis. ROS: See HPI - all other systems were reviewed and are otherwise negative Constitutional: no fever Eyes: no drainage, no blurred vision ENT: no runny nose, no sore throat Cardiovascular: no chest pain Resp: no SOB, no cough GI: + vomiting, no diarrhea, + abdominal pain : no dysuria Integumentary: no rash Allergy: no hives Musculoskeletal: no extremity pain or swelling Neurological: no numbness/tingling, no weakness MEDICATIONS: I agree with the patient medications as charted by the RN. ALLERGIES: I agree with the allergies as charted by the RN. PAST MEDICAL HISTORY/PAST SURGICAL HISTORY: Reviewed and agree as charted by RN. SOCIAL HISTORY: Reviewed and agree as charted by RN. FAMILY HISTORY: No significant familial comorbid conditions directly related to patient complaint EXAM: Reviewed vital signs as charted by RN. CONSTITUTIONAL: Alert and oriented and responds appropriately to questions. Slightly ill-appearing; well-nourished HEAD: Normocephalic; atraumatic EYES: PERRL; Conjunctivae clear, sclerae non-icteric ENT: normal nose; no rhinorrhea; slightly dry mucous membranes; pharynx without lesions noted, no uvula edema or deviation, no tonsillar hypertrophy, phonation normal NECK: Supple without meningismus; non-tender; no cervical lymphadenopathy, no masses CARD: Mild tachycardia; no murmurs, no clicks, no rubs, no gallops; symmetric distal pulses RESP: Normal chest excursion without splinting or tachypnea; breath sounds clear and equal bilaterally; no wheezes, no rhonchi, no rales, pulse oximetry 99% on room air not hypoxic ABD/GI: Normal bowel sounds; non-distended; soft, mild generalized tenderness more focal in the periumbilical region, no rebound, no guarding; enlarged uterus palpable in the lower abdomen BACK: The back appears normal and is non-tender to palpation, there is no CVA tenderness EXT: Normal ROM in all joints; non-tender to palpation; no cyanosis, no effusions, no edema SKIN: Normal color for age and race; warm; dry; good turgor; no acute lesions noted NEURO: Moves all extremities equally; Motor and sensory function intact PSYCH: The patient's mood and manner are appropriate. Grooming and personal hygiene are appropriate. MDM: 24-year-old female who is 19 weeks presenting for hyperemesis. Zofran and Reglan not working at home. Initial screening lab work and orders via the triage process. Has mild generalized tenderness a little more focal over the superior portion of the uterus and umbilical region. Once patient with nausea is improved and she is hydrated will reassess abdomen TRAVEL OUTSIDE OF THE [place] IN LAST 30 DAYS: No - Related Data Allergies/Adverse Reactions: Penicillins Allergy (Intermediate, Verified 03/27/20 10:55) Hives Past Medical History - General Information source: Patient - Social History Smoking Status: Never Smoker Frequency of alcohol use: None Drug Abuse: None Family History: Arthritis, Thyroid Disfunction Patient has homicidal ideation: No Renal/ Medical History: Denies: Hx Peritoneal Dialysis Musculoskeletal Medical History: Reports Hx Musculoskeletal Trauma - Multiple fractures ankles wrist ribs knee and elbow Psychiatric Medical History: Reports: Hx Anxiety, Hx Depression - and anxiety Traumatic Medical History: Reports: Hx Fractures - Ankles knee wrist elbow ribs - Immunizations Immunizations up to date: Yes Hx Diphtheria, Pertussis, Tetanus Vaccination: Yes Physical Exam - Vital signs Vitals: Temp Pulse BP Pulse Ox 97.9 F 116 H 112/80 100 03/27/20 10:44 03/27/20 10:44 03/27/20 10:44 03/27/20 10:44 Course - Re-evaluation Re-evalutation: 03/27/20 13:35 Patient's potassium 2.6, have ordered oral and IV replacement 03/27/20 14:41 Patient is having some recurrent nausea with attempting the oral potassium rep lacement. Will give Phenergan, continue IV fluids 03/27/20 16:12 Heart rate is 80, tolerating oral fluids, will discharge home, she prefers Phenergan suppositories which have been called in for her she will call [facility] in follow-up - Vital Signs Vital signs: Temp Pulse Resp BP Pulse Ox 97.9 F 116 H 18 147/88 H 99 03/27/20 10:55 03/27/20 10:44 03/27/20 13:36 03/27/20 14:00 03/27/20 14:00 - Laboratory Result Diagrams: 03/27/20 12:20 03/27/20 12:20 Laboratory results interpreted by me: 03/27/20 03/27/20 03/27/20 12:20 12:20 12:40 MCHC 36.5 H Plt Count 512 H Sodium 129.1 L Potassium 2.6 L* Chloride 90 L BUN 4 L Creatinine 0.44 L Urine Ketones 80 H Urine Blood SMALL H Urine Urobilinogen 2.0 H Ur Leukocyte Esterase TRACE H Discharge - Discharge Clinical Impression: Hyperemesis, Hypokalemia Condition: Stable Disposition: HOME, SELF-CARE Additional Instructions: Follow-up with [facility] for further evaluation of your hyperemesis. If you have further episodes of vomiting please call the [facility] office and speak to the on- call physician regarding management options. Return to the emergency department for any concerns, recurrent or worsening vomiting Prescriptions: Promethazine HCl [Phenergan 25 mg Supp.rect] 1 supp AR Q6H #12 supp.rect Referrals: ZACKERY BORJAS MD [ACTIVE STAFF] - Follow up as needed
[2020-03-27] MEDS ORDERED: DEXTROSE 5%-NORMAL SALINE 1,000 ML IV ONE (11:32)
[2020-03-27 13:03] LABS: APPEARANCE,URINE CLOUDY; BILIRUBIN,URINE NEGATIVE (NEGATIVE); COLOR,URINE YELLOW; GLUCOSE, URINE NEGATIVE (NEGATIVE); KETONES,URINE 80 mg/dL (NEGATIVE); LEUKOCYTE ESTERASE,URINE TRACE (NEGATIVE); NITRITE,URINE NEGATIVE (NEGATIVE); PROTEIN,URINE NEGATIVE (NEGATIVE); URINE SPECIFIC GRAVITY 1.012
[2020-03-27 13:13] LABS: ALBUMIN 4.2 g/dL (3.5-5.0); ALKALINE PHOSPHATASE 63 U/L (38-126); ANION GAP 9 (5-19); ASPARTATE AMINO TRANSFERASE 15 U/L (14-36); BILIRUBIN,TOTAL 0.5 mg/dL (0.2-1.3); BLOOD UREA NITROGEN 4 mg/dL (7-20); CALCIUM 9.7 mg/dL (8.4-10.2); CARBON DIOXIDE 30 mmol/L (22-30); CHLORIDE 90 mmol/L (98-107); GLUCOSE 107 mg/dL (75-110); TOTAL PROTEIN 6.9 g/dL (6.3-8.2)
[2020-03-27 13:15] LABS: POTASSIUM 2.6 mmol/L (3.6-5.0)
[2020-03-27] MEDS ORDERED: POTASSIUM CHLORIDE 20 MEQ PACKET PO ONE (13:27)
[2020-03-27 13:29] LABS: ABSOLUTE LYMPHOCYTES (AUTO) 1.6 10^3/uL (0.5-4.7); ABSOLUTE MONOCYTES (AUTO) 0.6 10^3/uL (0.1-1.4); ABSOLUTE NEUT (AUTO) 6.3 10^3/uL (1.7-8.2); BASOPHILS % (AUTO) 0.3 % (0-2); EOSINOPHILS % (AUTO) 0.3 % (0-6); HEMATOCRIT 38.4 % (36.0-47.0); LYMPHOCYTES % (AUTO) 18.9 % (13-45); MONOCYTES % (AUTO) 6.7 % (3-13); PLATELET COUNT 512 10^3/uL (150-450); RED CELL DISTRIBUTION WIDTH 13.9 % (11.5-14.0); SEGMENTED NEUTROPHILS % (AUTO) 73.8 % (42-78); TOTAL CELLS COUNTED % (AUTO) 100 %; WHITE BLOOD COUNT 8.6 10^3/uL (4.0-10.5)
[2020-03-27] MEDS ORDERED: POTASSI CL 20 MEQ/50 ML RIDER 20 MEQ/50 ML RTUPB IV ONE (13:32)
[2020-03-27 13:33] LABS: MEAN CORPUSCULAR VOLUME 92 fl (80-97); RED BLOOD COUNT 4.19 10^6/uL (3.72-5.28)
[2020-03-27 13:34] LABS: MEAN CORPUSCULAR HEMOGLOBIN 33.4 pg (27.0-33.4); MEAN CORPUSCULAR HGB CONC 36.5 g/dL (32.0-36.0)
[2020-03-27] MEDS ORDERED: PROMETHAZINE HCL INJ 25 MG/1 ML VIAL IV ONE (14:41)
[2020-03-27 16:15] VITALS: BP 124/78
== END 2020-03-27 16:28 | disposition home or self-care (01) ==
LOC: ER 10:40
DX: O21.1 Hyperemesis gravidarum with metabolic disturbance (principal); O26.892 Other specified pregnancy related conditions, second trimester; R10.817 Generalized abdominal tenderness; Z79.899 Other long term (current) drug therapy; Z88.0 Allergy status to penicillin; Z3A.19 19 weeks gestation of pregnancy
CPT/HCPCS: 99284; 96361; 96374; 96375; 36415; 83690; 85025; 80053; 81001; J1200; J2765; J2550; J3480; J7042; J7030; J3490

== ENCOUNTER 2020-04-01 12:49 | Emergency (ER) | payer OTHER ==
[2020-04-01] MEDS ORDERED: RINGERS SOLUTION,LACTATED 1,000 ML IV ONE (13:25)
[2020-04-01] MEDS ORDERED: METOCLOPRAMIDE HCL INJ/PF 10 MG/2 ML SDV IV ONE (13:26)
--- NOTE | 2020-04-01 13:28 | ER Document Report ---
ED Medical Screen (RME) - General Chief Complaint: Nausea Stated Complaint: NAUSEA Time Seen by Provider: 04/01/20 13:22 Primary Care Provider: BUD HENDERSON MD [Primary Care Provider] - Follow up as needed Mode of Arrival: Wheelchair Information source: Patient Notes: HPI; 24-year-old 19-week female presents to the emergency room with persistent vomiting for the past 2 days. History of hyperemesis. Tried taking ODT Zofran and a Phenergan suppository today without relief. She denies any abdominal pain, no vaginal bleeding, no vaginal discharge. OB care is up-to-date. History of hypokalemia, gestational diabetes, preeclampsia. PE: Alert and oriented x3, moderate distress, lungs are clear to auscultation without rales rhonchi or wheezes. Heart: Tachycardia without murmurs rubs or gallops, abdomen: Gravid, nontender, bowel sounds x4 I have greeted and performed a rapid initial assessment of this patient. A comprehensive ED assessment and evaluation of the patient, analysis of test results and completion of the medical decision making process will be conducted by additional ED providers. I have specifically instructed the patient or family members with the patient to immediately return to any nursing staff should anything change in the patient's condition or with their chief complaint. TRAVEL OUTSIDE OF THE [place] IN LAST 30 DAYS: No - Related Data Allergies/Adverse Reactions: Penicillins Allergy (Intermediate, Verified 03/27/20 10:55) Hives Past Medical History Renal/ Medical History: Denies: Hx Peritoneal Dialysis Musculoskeltal Medical History: Reports Hx Musculoskeletal Trauma - Multiple fractures ankles wrist ribs knee and elbow Psychiatric Medical History: Reports: Hx Anxiety, Hx Depression - and anxiety Traumatic Medical History: Reports: Hx Fractures - Ankles knee wrist elbow ribs - Immunizations Immunizations up to date: Yes Hx Diphtheria, Pertussis, Tetanus Vaccination: Yes Physical Exam - Vital signs Vitals: Temp 97.8 F 04/01/20 12:49 Course - Vital Signs Vital signs: Temp Pulse Resp BP Pulse Ox 97.8 F 109 H 18 132/93 H 98 04/01/20 12:54 04/01/20 12:54 04/01/20 12:54 04/01/20 12:54 04/01/20 12:54 Doctor's Discharge - Discharge Referrals: BUD HENDERSON MD [Primary Care Provider] - Follow up as needed
[2020-04-01] MEDS ORDERED: DIPHENHYDRAMINE HCL 50 MG/ML VIAL IV ONE (13:39)
--- NOTE | 2020-04-01 13:45 | ER Document Report ---
ED GI/ - General Chief Complaint: Nausea/Vomiting Stated Complaint: NAUSEA Time Seen by Provider: 04/01/20 13:22 Primary Care Provider: [facility] [Provider Group] - 04/04/20 BUD HENDERSON MD [Primary Care Provider] - Follow up as needed Mode of Arrival: Ambulatory TRAVEL OUTSIDE OF THE [place] IN LAST 30 DAYS: No - HPI Patient complains to provider of: , Vomiting Onset: Other - 2 days Timing/Duration: Intermittent Quality of pain: Cramping Severity at maximum: Moderate Severity in ED: Mild Pain Level: 1 Location: Suprapubic, Pelvis Vaginal bleeding (Compared to normal period): None LMP: 19 weeks : 2 Para: 1 EDC: 08/28/20 OB ultrasound done: Yes Associated symptoms: Nausea, Vomiting Exacerbated by: Movement, Walking, Food Relieved by: Denies Similar symptoms previously: Yes Recently seen / treated by doctor: Yes - Related Data Allergies/Adverse Reactions: Penicillins Allergy (Intermediate, Verified 03/27/20 10:55) Hives Home Medications: zofran, phenergan Past Medical History - General Information source: Patient - Social History Smoking Status: Never Smoker Frequency of alcohol use: None Drug Abuse: None Lives with: Family Family History: Arthritis, Thyroid Disfunction Patient has homicidal ideation: No - Past Medical History Cardiac Medical History: Reports: None Pulmonary Medical History: Reports: None EENT Medical History: Reports: None Neurological Medical History: Reports: None Endocrine Medical History: Reports: None Renal/ Medical History: Reports: None. Denies: Hx Peritoneal Dialysis Malignancy Medical History: Reports: None GI Medical History: Reports: None Musculoskeletal Medical History: Reports Hx Musculoskeletal Trauma - Multiple fractures ankles wrist ribs knee and elbow Skin Medical History: Reports None Psychiatric Medical History: Reports: Hx Anxiety, Hx Depression - and anxiety Traumatic Medical History: Reports: Hx Fractures - Ankles knee wrist elbow ribs Infectious Medical History: Reports: None Surgical Hx: Negative Past Surgical History: Reports: None - Immunizations Immunizations up to date: Yes Hx Diphtheria, Pertussis, Tetanus Vaccination: Yes Review of Systems - Review of Systems Constitutional: No symptoms reported EENT: No symptoms reported Cardiovascular: No symptoms reported Respiratory: No symptoms reported Gastrointestinal: Abdominal pain, Nausea, Vomiting, Other - 19 weeks Genitourinary: No symptoms reported Female Genitourinary: No symptoms reported Musculoskeletal: No symptoms reported Skin: No symptoms reported Hematologic/Lymphatic: No symptoms reported Neurological/Psychological: No symptoms reported -: Yes All other systems reviewed and negative Physical Exam - Vital signs Vitals: Temp 97.8 F 04/01/20 12:49 Interpretation: Normal - General General appearance: Appears well, Alert - HEENT Head: Normocephalic, Atraumatic Eyes: Normal Pupils: PERRL - Respiratory Respiratory status: No respiratory distress Chest status: Nontender Breath sounds: Normal Chest palpation: Normal - Cardiovascular Rhythm: Regular Heart sounds: Normal auscultation Murmur: No - Abdominal Inspection: Gravid female Distension: No distension Bowel sounds: Hyperactive Tenderness: Tender Organomegaly: No organomegaly - Back Back: Normal, Nontender - Extremities General upper extremity: Normal inspection, Nontender, Normal color, Normal ROM, Normal temperature General lower extremity: Normal inspection, Nontender, Normal color, Normal ROM, Normal temperature, Normal weight bearing. No: Eduar's sign - Neurological Neuro grossly intact: Yes Cognition: Normal Orientation: AAOx4 Dermott Coma Scale Eye Opening: Spontaneous Angela Coma Scale Verbal: Oriented Angela Coma Scale Motor: Obeys Commands Angela Coma Scale Total: 15 Speech: Normal Motor strength normal: LUE, RUE, LLE, RLE Sensory: Normal - Psychological Associated symptoms: Normal affect, Normal mood - Skin Skin Temperature: Warm Skin Moisture: Dry Skin Color: Normal Course - Re-evaluation Re-evalutation: 04/01/20 16:[address] Johnson from [facility]. I did inform her that the patient's TSH was 0.30. She states that they would recheck that on her next visit. She states frequently when they are hyperemesis their TSH is off a little bit and then returns to normal. She states she does have an appointment in 3 days and they would do the ultrasound at that time. They will recheck her chemistries as well to ensure that everything is back to normal. I have told her that I gave 40 mg equivalents of potassium p.o. and patient did tolerate that well. She states please be sure to send her home with Phenergan suppositories as well as Reglan. I did write prescriptions for both of these. I have informed patient that she cannot take both within 6 hours of each other as they will cause increased side effects. Patient did verbalize understanding that this was a complication with these 2 medications. She states she only takes 1 or the other. Patient states she knows she has an appointment in 3 days and she will be sure to keep that appointment. She is not nauseated at this time and she is ready to go home. - Vital Signs Vital signs: Temp Pulse Resp BP Pulse Ox 97.8 F 95 18 138/71 H 100 04/01/20 16:30 04/01/20 16:30 04/01/20 16:30 04/01/20 16:30 04/01/20 16:30 - Laboratory Result Diagrams: 04/01/20 13:32 04/01/20 13:32 Laboratory results interpreted by me: 04/01/20 04/01/20 04/01/20 13:32 13:32 13:32 RBC 3.39 L Hgb 11.5 L Hct 31.3 L MCH 34.0 H MCHC 36.8 H Plt Count 482 H Seg Neutrophils % 81.5 H Sodium 133.5 L Potassium 3.1 L Chloride 97 L Carbon Dioxide 31 H BUN 3 L Creatinine 0.32 L TSH 0.30 L Urine Ketones 04/01/20 14:56 RBC Hgb Hct MCH MCHC Plt Count Seg Neutrophils % Sodium Potassium Chloride Carbon Dioxide BUN Creatinine TSH Urine Ketones TRACE H Discharge - Discharge Clinical Impression: Hyperemesis gravidarum, Hyponatremia, Hypokalemia, Elevated TSH Condition: Stable Disposition: HOME, SELF-CARE Additional Instructions: Hyperemesis Gravidarum Hyperemesis gravidarum is the medical term for severe vomiting during preg georgi. We don't know exactly why it occurs, but it's a common problem. Dehydration can occur. This reduces blood flow to the placenta, decreasing the baby's nourishment. The baby will also become dehydrated. There can be harmful changes in blood sodium, potassium, or acid balance. Our goal is to correct, and prevent, dehydration. For severe cases, we give IV fluids. Antinausea medication will be prescribed. (Don't be concerned about " defects" -- the risk to you and your baby from the hyperemesis is the biggest problem. The antinausea medication is very safe at this stage of .) Call the doctor if you have vaginal bleeding, abdominal pain, severe lightheadedness or weakness, or other alarming symptoms. Hypokalemia You have an abnormally decreased level of serum potassium. Hypokalemia may cause weakness, fatigue, or heart rhythm abnormalities. Sometimes there are no symptoms at all. Usually, low serum potassium is due to taking diuretics (water pills). It can also be due to excessive vomiting or diarrhea. If no obvious cause is evident, further evaluation will be necessary. Treatment is usually oral potassium supplements. Take these exactly as prescribed. You may also want to select foods which are naturally high in potassium -- fruits (such as bananas, cantaloupe, grapes, oranges, prunes, tomatoes), fresh vegetables (potatoes, spinach, beans, peas), orange or tomato juice, tomato pasta sauce, milk, fish (halibut, tuna, salmon, tere) A follow-up blood test is usually performed to assure that the potassium is returning to normal. Call the physician if you suffer severe weakness, muscle twitching or cramping, palpitations (pounding or irregular heartbeat), or any other new or alarming symptoms. Hyponatremia You have an abnormally low level of serum sodium, called hyponatremia. Low serum sodium may cause weakness, fatigue, confusion, or even seizures. Usually, low sodium is due to taking diuretics (water pills), combined with drinking too much water. It can also be due to excessive vomiting or diarrhea. If no obvious cause is evident, further evaluation will be necessary. If the hyponatremia results from taking diuretics, it's treated by restricting the amount of water you can drink. If it's due to vomiting and diarrhea, it's treated by drinking liberal amounts of rehydration solution (for example Lytren or Pedialyte). A follow-up blood test is often done to see that the sodium is returning to normal. Call the physician if you have severe weakness, muscle twitching or cramping, palpitations (pounding or irregular heartbeat), confusion, headache, seizures, or any other new or alarming symptoms. Antinausea Medication You have been given a medication to suppress nausea and vomiting. This type of medication can be given as a shot, pill, or suppository. It will usually last for many hours. Pills and shots usually last six to eight hours, suppositories last about 12 hours. For the typical illness, only one or two doses of the med ication may be necessary. Mild lightheadedness may occur. This type of medicine can cause drow siness. Do not drive or operate dangerous machinery while under its influence. Do not mix with alcohol. See your doctor at once if you have muscle spasms or tightness, or uncontrollable motions (particularly of the neck, mouth, or jaw). Persistent vomiting or severe lightheadedness should also be evaluated by the physician. Reglan (Metoclopramide) Reglan has been prescribed. This medicine affects the stomach and intestines. It can be used to treat nausea and vomiting, to prevent reflux of stomach acid up into the esophagus, or to increase the contractions of the stomach and intestines. It is often prescribed for esophagitis, and for paralysis of the stomach in diabetics. Reglan can cause either mild restlessness or drowsiness. You should contact the doctor at once if you become extremely restless, anxious, or cannot sleep, or if you develop uncontrollable motions of the lips, tongue, or jaw. Do not take alcohol with this medicine. Do not drive or operate machinery until you have been taking this medicine long enough to know how it affects you. Call the doctor if you develop abdominal pains, lightheadedness, black stool, or blood in the stool or vomitus. Potassium A potassium-containing medication has been given. This is usually used to treat potassium depletion caused by diuretics or by vomiting and diarrhea. This type of medicine is available in many forms, including elixirs, powders, fruity drinks, and pills. If one type is not working out for you, another can be substituted. Potassium can cause stomach upset. This can be prevented by taking it with meals. Do not take more than your doctor recommends. Notify your doctor if you develop repeated vomiting, black or bloody stool, severe weakness or numbness. Keep your appointment with [facility] in 3 days. They may draw blood at that time due to your low TSH today. Plan to do an ultrasound on you today but she states she would rather not get it done today since she will be getting 1 done in 3 days at your next [facility] appointment. So your ultrasound has been counseled. Please take your lab results with you to your [facility] appointment 3 days. FOLLOW-UP CARE: If you have been referred to a physician for follow-up care, call the physicians office for an appointment as you were instructed or within the next two days. If you experience worsening or a significant change in your symptoms, notify the physician immediately or return to the Emergency Department at any time for re-evaluation. Prescriptions: Metoclopramide HCl [Reglan 10 mg Tablet] 1 tab PO Q6HP PRN #25 tablet PRN Reason: Promethazine HCl [Phenergan 25 mg Supp.rect] 1 supp [place] Q6H #12 supp.rect Forms: Elevated Blood Pressure Referrals: BUD HENDERSON MD [Primary Care Provider] - Follow up as needed [facility] [Provider Group] - 04/04/20
[2020-04-01] MEDS: NORMAL SALINE 1000 ML 1,000 ML IV PRN ×2 (13:52→14:35)
[2020-04-01 13:55] LABS: ABSOLUTE LYMPHOCYTES (AUTO) 1.1 10^3/uL (0.5-4.7); ABSOLUTE MONOCYTES (AUTO) 0.3 10^3/uL (0.1-1.4); ABSOLUTE NEUT (AUTO) 6.2 10^3/uL (1.7-8.2); BASOPHILS % (AUTO) 0.2 % (0-2); HEMATOCRIT 31.3 % (36.0-47.0); HEMOGLOBIN 11.5 g/dL (12.0-15.5); LYMPHOCYTES % (AUTO) 14.9 % (13-45); MEAN CORPUSCULAR HGB CONC 36.8 g/dL (32.0-36.0); MEAN CORPUSCULAR VOLUME 92 fl (80-97); MONOCYTES % (AUTO) 3.4 % (3-13); PLATELET COUNT 482 10^3/uL (150-450); RED BLOOD COUNT 3.39 10^6/uL (3.72-5.28); RED CELL DISTRIBUTION WIDTH 13.8 % (11.5-14.0); SEGMENTED NEUTROPHILS % (AUTO) 81.5 % (42-78); TOTAL CELLS COUNTED % (AUTO) 100 %; WHITE BLOOD COUNT 7.6 10^3/uL (4.0-10.5)
[2020-04-01 14:03] LABS: ALBUMIN 3.9 g/dL (3.5-5.0); ALKALINE PHOSPHATASE 56 U/L (38-126); ANION GAP 6 (5-19); ASPARTATE AMINO TRANSFERASE 15 U/L (14-36); BILIRUBIN,TOTAL 0.4 mg/dL (0.2-1.3); BLOOD UREA NITROGEN 3 mg/dL (7-20); CALCIUM 9.2 mg/dL (8.4-10.2); CARBON DIOXIDE 31 mmol/L (22-30); CHLORIDE 97 mmol/L (98-107); GLUCOSE 107 mg/dL (75-110); POTASSIUM 3.1 mmol/L (3.6-5.0); TOTAL PROTEIN 6.4 g/dL (6.3-8.2)
[2020-04-01] MEDS ORDERED: ONDANSETRON HCL INJ/PF 4 MG/2 ML SDV IV ONE (14:59)
[2020-04-01 15:34] LABS: APPEARANCE,URINE SLIGHTLY-CLOUDY; BILIRUBIN,URINE NEGATIVE (NEGATIVE); COLOR,URINE YELLOW; GLUCOSE, URINE NEGATIVE (NEGATIVE); KETONES,URINE TRACE mg/dL (NEGATIVE); LEUKOCYTE ESTERASE,URINE NEGATIVE (NEGATIVE); NITRITE,URINE NEGATIVE (NEGATIVE); PROTEIN,URINE NEGATIVE (NEGATIVE); URINE SPECIFIC GRAVITY 1.005; UROBILINOGEN,URINE NEGATIVE mg/dL (<2.0)
[2020-04-01] MEDS: POTASSIUM CHLORIDE 10 MEQ TABLET.ER PO ONE ×2 (15:48→15:53)
[2020-04-01 15:52] LABS: URINE AMPHETAMINES SCREEN NEGATIVE; URINE BARBITURATES SCREEN NEGATIVE; URINE BENZODIAZEPINES SCREEN NEGATIVE; URINE COCAINE SCREEN NEGATIVE; URINE METHADONE SCREEN NEGATIVE; URINE PHENCYCLIDINE SCREEN NEGATIVE
[2020-04-01 15:53] LABS: URINE MARIJUANA (THC) SCREEN UNCONFIRMED POSITIVE
[2020-04-01] MEDS ORDERED: POTASSIUM CHLORIDE 20 MEQ PACKET PO ONE (15:57)
[2020-04-01 16:27] VITALS: BP 138/71
== END 2020-04-01 16:29 | disposition home or self-care (01) ==
LOC: ER 12:49
DX: O21.1 Hyperemesis gravidarum with metabolic disturbance (principal); O99.280 Endocrine, nutritional and metabolic diseases complicating pregnancy, unspecified trimester; O26.899 Other specified pregnancy related conditions, unspecified trimester; R10.30 Lower abdominal pain, unspecified; R10.2 Pelvic and perineal pain; Z3A.00 Weeks of gestation of pregnancy not specified; Z88.0 Allergy status to penicillin
CPT/HCPCS: 99283; 96361; 96374; 96375; 36415; 87086; 83690; 84443; 85025; 80053; 81001; 80307; J1200; J2765; J2405; J7030; J3490

== ENCOUNTER 2020-04-03 18:32 | Emergency (ER) | payer OTHER ==
[2020-04-03] MEDS ORDERED: METOCLOPRAMIDE HCL INJ/PF 10 MG/2 ML SDV IV ONE (18:56)
[2020-04-03] MEDS ORDERED: DIPHENHYDRAMINE HCL 50 MG/ML VIAL IV ONE ×2 (18:56→23:23)
--- NOTE | 2020-04-03 18:59 | ER Document Report ---
ED Medical Screen (RME) - General Chief Complaint: Vomiting Stated Complaint: VOMITING/19 WEEKS Time Seen by Provider: 04/03/20 18:55 Primary Care Provider: BUD HENDERSON MD [Primary Care Provider] - Follow up as needed Mode of Arrival: Wheelchair Information source: Patient Notes: 24-year-old female presented to ED for nausea and vomiting. She is hyperemesis gravidarum. She has been using Phenergan suppositories, Reglan and Benadryl, and Zofran with no relief of her nausea and vomiting. She was feeling much better after the Reglan and Benadryl IV last time but states by the time she got in the car she was nauseated and vomiting again. Patient is alert oriented respirations regular and unlabored speaking in full sentences. She was seen 2 days ago. I have greeted and performed a rapid initial assessment of this patient. A comprehensive ED assessment and evaluation of the patient, analysis of test results and completion of medical decision making process will be conducted by an additional ED providers. TRAVEL OUTSIDE OF THE [place] IN LAST 30 DAYS: No - Related Data Allergies/Adverse Reactions: Penicillins Allergy (Intermediate, Verified 04/03/20 18:52) Hives Past Medical History Renal/ Medical History: Denies: Hx Peritoneal Dialysis Musculoskeltal Medical History: Reports Hx Musculoskeletal Trauma - Multiple fractures ankles wrist ribs knee and elbow Psychiatric Medical History: Reports: Hx Anxiety, Hx Depression - and anxiety Traumatic Medical History: Reports: Hx Fractures - Ankles knee wrist elbow ribs - Immunizations Immunizations up to date: Yes Hx Diphtheria, Pertussis, Tetanus Vaccination: Yes Physical Exam - Vital signs Vitals: Pulse Resp BP Pulse Ox 108 H 18 149/75 H 97 04/03/20 18:38 04/03/20 18:38 04/03/20 18:38 04/03/20 18:38 Course - Vital Signs Vital signs: Temp Pulse Resp BP Pulse Ox 108 H 18 149/75 H 97 04/03/20 18:38 04/03/20 18:38 04/03/20 18:38 04/03/20 18:38 Doctor's Discharge - Discharge Referrals: BUD HENDERSON MD [Primary Care Provider] - Follow up as needed
[2020-04-03 19:36] LABS: APPEARANCE,URINE CLOUDY; BILIRUBIN,URINE NEGATIVE (NEGATIVE); COLOR,URINE YELLOW; GLUCOSE, URINE NEGATIVE (NEGATIVE); KETONES,URINE 80 mg/dL (NEGATIVE); LEUKOCYTE ESTERASE,URINE TRACE (NEGATIVE); NITRITE,URINE NEGATIVE (NEGATIVE); PROTEIN,URINE 30 mg/dL (NEGATIVE); URINE SPECIFIC GRAVITY 1.016
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
[2020-04-03] MEDS: NORMAL SALINE 1000 ML 1,000 ML IV PRN ×2 (20:03→21:07)
[2020-04-03 20:09] LABS: ABSOLUTE BASOPHILS # (AUTO) 0.1 10^3/uL (0.0-0.2); ABSOLUTE LYMPHOCYTES (AUTO) 1.9 10^3/uL (0.5-4.7); ABSOLUTE MONOCYTES (AUTO) 0.6 10^3/uL (0.1-1.4); ABSOLUTE NEUT (AUTO) 7.4 10^3/uL (1.7-8.2); BASOPHILS % (AUTO) 0.6 % (0-2); EOSINOPHILS % (AUTO) 0.1 % (0-6); HEMATOCRIT 35.4 % (36.0-47.0); HEMOGLOBIN 12.8 g/dL (12.0-15.5); LYMPHOCYTES % (AUTO) 18.8 % (13-45); MEAN CORPUSCULAR HEMOGLOBIN 33.4 pg (27.0-33.4); MEAN CORPUSCULAR HGB CONC 36.1 g/dL (32.0-36.0); MEAN CORPUSCULAR VOLUME 92 fl (80-97); MONOCYTES % (AUTO) 5.8 % (3-13); PLATELET COUNT 535 10^3/uL (150-450); RED BLOOD COUNT 3.83 10^6/uL (3.72-5.28); RED CELL DISTRIBUTION WIDTH 13.3 % (11.5-14.0); SEGMENTED NEUTROPHILS % (AUTO) 74.7 % (42-78); TOTAL CELLS COUNTED % (AUTO) 100 %; WHITE BLOOD COUNT 9.9 10^3/uL (4.0-10.5)
[2020-04-03 20:29] LABS: ALBUMIN 4.5 g/dL (3.5-5.0); ALKALINE PHOSPHATASE 71 U/L (38-126); ANION GAP 11 (5-19); ASPARTATE AMINO TRANSFERASE 18 U/L (14-36); BILIRUBIN,TOTAL 0.6 mg/dL (0.2-1.3); BLOOD UREA NITROGEN 6 mg/dL (7-20); CALCIUM 9.8 mg/dL (8.4-10.2); CARBON DIOXIDE 25 mmol/L (22-30); CHLORIDE 97 mmol/L (98-107); GLUCOSE 100 mg/dL (75-110); TOTAL PROTEIN 7.1 g/dL (6.3-8.2)
[2020-04-03] MEDS ORDERED: POTASSIUM CHLORIDE 10 MEQ TABLET.ER PO ONE ×2 (21:09→23:30)
[2020-04-03] MEDS ORDERED: PROMETHAZINE HCL INJ 25 MG/1 ML VIAL IV ONE (21:20)
[2020-04-03] MEDS ORDERED: ONDANSETRON HCL INJ/PF 4 MG/2 ML SDV IV ONE (22:03)
[2020-04-03] MEDS ORDERED: PROMETHAZINE HCL 25 MG SUPP (4 SUPP/ER DISP) PR ONE (22:08)
[2020-04-03] MEDS ORDERED: PROCHLORPERAZINE EDISYLATE INJ 10 MG/2 ML VIAL IV ONE (23:22)
[2020-04-03] MEDS ORDERED: RINGERS SOLUTION,LACTATED 1,000 ML IV ONE (23:22)
[2020-04-03] MEDS ORDERED: POTASSI CL 20 MEQ/50 ML RIDER 20 MEQ/50 ML RTUPB IV ONE (23:24)
[2020-04-04] MEDS ORDERED: NORMAL SALINE 1000 ML 1,000 ML IV ONE (00:24)
[2020-04-04] MEDS ORDERED: PROMETHAZINE HCL 25 MG SUPP (4 SUPP/ER DISP) PR ONE (01:20)
[2020-04-04 01:41] VITALS: BP 117/50
== END 2020-04-04 01:35 | disposition home or self-care (01) ==
LOC: ER 18:32
DX: O21.1 Hyperemesis gravidarum with metabolic disturbance (principal); O26.892 Other specified pregnancy related conditions, second trimester; Z3A.19 19 weeks gestation of pregnancy; R35.0 Frequency of micturition; Z79.899 Other long term (current) drug therapy; Z88.0 Allergy status to penicillin
CPT/HCPCS: 96376; 99285; 96361; 96375; 96365; 96366; 36415; 83690; 83735; 85025; 80053; 81001; J1200; J3490; J2765; J0780; J2550; J2405; J3480; J7030; J7120

== ENCOUNTER 2020-04-06 22:42 | Emergency (ER) | payer OTHER ==
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
[2020-04-06 23:28] LABS: ABSOLUTE EOSINOPHILS # (AUTO) 0.1 10^3/uL (0.0-0.6); ABSOLUTE LYMPHOCYTES (AUTO) 2.9 10^3/uL (0.5-4.7); ABSOLUTE MONOCYTES (AUTO) 0.6 10^3/uL (0.1-1.4); ABSOLUTE NEUT (AUTO) 4.2 10^3/uL (1.7-8.2); BASOPHILS % (AUTO) 0.4 % (0-2); EOSINOPHILS % (AUTO) 1.1 % (0-6); HEMATOCRIT 31.6 % (36.0-47.0); HEMOGLOBIN 11.6 g/dL (12.0-15.5); LYMPHOCYTES % (AUTO) 37.3 % (13-45); MEAN CORPUSCULAR HGB CONC 36.8 g/dL (32.0-36.0); MEAN CORPUSCULAR VOLUME 93 fl (80-97); MONOCYTES % (AUTO) 7.3 % (3-13); PLATELET COUNT 421 10^3/uL (150-450); RED BLOOD COUNT 3.41 10^6/uL (3.72-5.28); RED CELL DISTRIBUTION WIDTH 13.4 % (11.5-14.0); SEGMENTED NEUTROPHILS % (AUTO) 53.9 % (42-78); TOTAL CELLS COUNTED % (AUTO) 100 %; WHITE BLOOD COUNT 7.8 10^3/uL (4.0-10.5)
[2020-04-07 00:02] LABS: ALBUMIN 4.1 g/dL (3.5-5.0); ALKALINE PHOSPHATASE 58 U/L (38-126); ANION GAP 7 (5-19); ASPARTATE AMINO TRANSFERASE 16 U/L (14-36); BILIRUBIN,TOTAL 0.3 mg/dL (0.2-1.3); BLOOD UREA NITROGEN 2 mg/dL (7-20); CALCIUM 10.2 mg/dL (8.4-10.2); CARBON DIOXIDE 26 mmol/L (22-30); CHLORIDE 100 mmol/L (98-107); GLUCOSE 85 mg/dL (75-110); POTASSIUM 3.1 mmol/L (3.6-5.0); TOTAL PROTEIN 6.7 g/dL (6.3-8.2)
[2020-04-07] MEDS ORDERED: METOCLOPRAMIDE HCL INJ/PF 10 MG/2 ML SDV IV ONE (00:02)
[2020-04-07] MEDS ORDERED: NORMAL SALINE 1000 ML 1,000 ML IV ONE (00:02)
[2020-04-07] MEDS ORDERED: DIPHENHYDRAMINE HCL 50 MG/ML VIAL IV ONE (00:02)
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
--- NOTE | 2020-04-07 00:55 | RADIOLOGY REPORT (SQ) ---
EXAM DESCRIPTION: US LIMITED COMPLETED DATE/TME: 04/06/2020 22:59 CLINICAL HISTORY: 24 years Female, fall pelvic pain Comparison: 07/25/18 TECHNIQUE/LIMITATION: Targeted OB sonogram for requested parameters only. FINDINGS: Single IUP EGA is 19w3d with PRICE of 04/06/2020 Cardiac activity: 150-bpm. APARNA: Adequate. With vernix. Placenta: Posterior. 2.0 cm subchorionic placental lucency probably indicates a placental byrnes. No demonstrated abruption or previa. (Imaging note: Ultrasound does not detect most cases of abruption and "placental abruption" is considered a clinical diagnosis.) Presentation: Variable. Cervical length: 3.2-cm. Closed appearance. Other: Likely myometrial contraction at the right uterine wall noted. IMPRESSION: Targeted OB sonogram for requested parameters
[2020-04-07 01:35] LABS: APPEARANCE,URINE SLIGHTLY-CLOUDY; BILIRUBIN,URINE NEGATIVE (NEGATIVE); COLOR,URINE STRAW; GLUCOSE, URINE NEGATIVE (NEGATIVE); KETONES,URINE 20 mg/dL (NEGATIVE); LEUKOCYTE ESTERASE,URINE NEGATIVE (NEGATIVE); NITRITE,URINE NEGATIVE (NEGATIVE); PROTEIN,URINE NEGATIVE (NEGATIVE); URINE SPECIFIC GRAVITY 1.004; UROBILINOGEN,URINE NEGATIVE mg/dL (<2.0)
[2020-04-07 02:15] VITALS: BP 136/76
== END 2020-04-07 02:22 | disposition home or self-care (01) ==
LOC: ER 22:42
DX: O26.892 Other specified pregnancy related conditions, second trimester (principal); R10.2 Pelvic and perineal pain; O21.0 Mild hyperemesis gravidarum; Z79.899 Other long term (current) drug therapy; Z3A.19 19 weeks gestation of pregnancy; Z88.0 Allergy status to penicillin
CPT/HCPCS: 99284; 96361; 96374; 96375; 36415; 84702; 85025; 80053; 81001; 76815; J1200; J2765; J7030

== ENCOUNTER 2020-04-07 08:44 | Emergency (ER) | payer OTHER ==
[2020-04-07] MEDS ORDERED: RINGERS SOLUTION,LACTATED 1,000 ML IV ONE ×2 (08:56→10:33)
[2020-04-07] MEDS ORDERED: PROMETHAZINE HCL 25 MG SUPP.RECT PR ONE (08:57)
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
[2020-04-07] MEDS ORDERED: PROCHLORPERAZINE EDISYLATE INJ 10 MG/2 ML VIAL IV ONE (09:05)
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
[2020-04-07 09:22] LABS: ABSOLUTE LYMPHOCYTES (AUTO) 1.7 10^3/uL (0.5-4.7); ABSOLUTE MONOCYTES (AUTO) 0.3 10^3/uL (0.1-1.4); ABSOLUTE NEUT (AUTO) 4.8 10^3/uL (1.7-8.2); BASOPHILS % (AUTO) 0.5 % (0-2); EOSINOPHILS % (AUTO) 0.6 % (0-6); HEMATOCRIT 32.7 % (36.0-47.0); HEMOGLOBIN 11.9 g/dL (12.0-15.5); LYMPHOCYTES % (AUTO) 24.4 % (13-45); MEAN CORPUSCULAR HEMOGLOBIN 33.7 pg (27.0-33.4); MEAN CORPUSCULAR HGB CONC 36.5 g/dL (32.0-36.0); MEAN CORPUSCULAR VOLUME 92 fl (80-97); PLATELET COUNT 452 10^3/uL (150-450); RED BLOOD COUNT 3.55 10^6/uL (3.72-5.28); RED CELL DISTRIBUTION WIDTH 13.2 % (11.5-14.0); SEGMENTED NEUTROPHILS % (AUTO) 69.5 % (42-78); TOTAL CELLS COUNTED % (AUTO) 100 %; WHITE BLOOD COUNT 6.8 10^3/uL (4.0-10.5)
[2020-04-07 09:34] LABS: ALBUMIN 4.1 g/dL (3.5-5.0); ALKALINE PHOSPHATASE 59 U/L (38-126); ANION GAP 11 (5-19); ASPARTATE AMINO TRANSFERASE 16 U/L (14-36); BILIRUBIN,TOTAL 0.5 mg/dL (0.2-1.3); CALCIUM 9.5 mg/dL (8.4-10.2); CARBON DIOXIDE 22 mmol/L (22-30); CHLORIDE 101 mmol/L (98-107); GLUCOSE 122 mg/dL (75-110); POTASSIUM 3.1 mmol/L (3.6-5.0); TOTAL PROTEIN 6.6 g/dL (6.3-8.2)
[2020-04-07 09:36] LABS: BLOOD UREA NITROGEN < 2 mg/dL (7-20)
[2020-04-07 11:30] LABS: APPEARANCE,URINE SLIGHTLY-CLOUDY; BILIRUBIN,URINE NEGATIVE (NEGATIVE); COLOR,URINE YELLOW; GLUCOSE, URINE NEGATIVE (NEGATIVE); KETONES,URINE 20 mg/dL (NEGATIVE); LEUKOCYTE ESTERASE,URINE TRACE (NEGATIVE); NITRITE,URINE NEGATIVE (NEGATIVE); PROTEIN,URINE NEGATIVE (NEGATIVE); URINE SPECIFIC GRAVITY 1.009; UROBILINOGEN,URINE NEGATIVE mg/dL (<2.0)
[2020-04-07] MEDS ORDERED: POTASSIUM CHLORIDE 10 MEQ TABLET.ER PO ONE (11:32)
[2020-04-07] MEDS ORDERED: ONDANSETRON HCL INJ/PF 4 MG/2 ML SDV IV ONE (11:50)
[2020-04-07 11:51] LABS: URINE AMPHETAMINES SCREEN NEGATIVE; URINE BARBITURATES SCREEN NEGATIVE; URINE BENZODIAZEPINES SCREEN NEGATIVE; URINE COCAINE SCREEN NEGATIVE; URINE MARIJUANA (THC) SCREEN UNCONFIRMED POSITIVE; URINE METHADONE SCREEN NEGATIVE; URINE PHENCYCLIDINE SCREEN NEGATIVE
[2020-04-07] MEDS ORDERED: POTASSI CL 20 MEQ/50 ML RIDER 20 MEQ/50 ML RTUPB IV ONE (11:52)
[2020-04-07] MEDS ORDERED: FAMOTIDINE INJ/PF 20 MG/2 ML SDV IV ONE (11:57)
[2020-04-07 14:05] VITALS: BP 133/78
== END 2020-04-07 14:05 | disposition home or self-care (01) ==
LOC: ER 08:44
DX: O21.1 Hyperemesis gravidarum with metabolic disturbance (principal); O26.892 Other specified pregnancy related conditions, second trimester; F12.10 Cannabis abuse, uncomplicated; Z3A.19 19 weeks gestation of pregnancy
CPT/HCPCS: 99284; 96361; 96375; 96365; 96366; 36415; 83690; 85025; 80053; 81001; 80307; J0780; J2405; J3480; J7120; S0028

== ENCOUNTER 2020-04-20 11:29 | Outpatient (CLI) | payer OTHER ==
[2020-04-20 12:22] LABS: APPEARANCE,URINE SLIGHTLY-CLOUDY; BILIRUBIN,URINE NEGATIVE (NEGATIVE); COLOR,URINE YELLOW; GLUCOSE, URINE NEGATIVE (NEGATIVE); KETONES,URINE NEGATIVE (NEGATIVE); LEUKOCYTE ESTERASE,URINE SMALL (NEGATIVE); NITRITE,URINE NEGATIVE (NEGATIVE); PROTEIN,URINE 30 mg/dL (NEGATIVE); URINE SPECIFIC GRAVITY 1.018; UROBILINOGEN,URINE NEGATIVE mg/dL (<2.0)
[2020-04-20 12:27] LABS: BACTERIA (WET MOUNT) 4+ BACTERIA SEEN; EPITHELIALS (WET MOUNT) 4+ EPITHELIALS SEEN; T.VAGINALIS (WET MOUNT) NO TRICHOMONAS SEEN; WBCS (WET MOUNT) 4+ WBCS SEEN; YEAST (WET MOUNT) YEAST SEEN
[2020-04-20] MEDS ORDERED: FLUCONAZOLE 100 MG TABLET PO ONE (12:45)
[2020-04-20] MEDS ORDERED: FLUCONAZOLE 100 MG TABLET ONE (12:48)
[2020-04-20 12:50] LABS: URINE AMPHETAMINES SCREEN NEGATIVE; URINE BARBITURATES SCREEN NEGATIVE; URINE BENZODIAZEPINES SCREEN NEGATIVE; URINE COCAINE SCREEN NEGATIVE; URINE METHADONE SCREEN NEGATIVE; URINE PHENCYCLIDINE SCREEN NEGATIVE
[2020-04-20 12:52] LABS: URINE MARIJUANA (THC) SCREEN UNCONFIRMED POSITIVE
[2020-04-20 13:54] LABS: CHLAM PCR NOT DETECTED (NOT DETECT)
== END 2020-04-20 13:06 | disposition home or self-care (01) ==
LOC: LC 11:29
PROVIDERS: ATTEND Student in an Organized Health Care Education/Training Program
DX: O36.8120 Decreased fetal movements, second trimester, not applicable or unspecified (principal); Z88.0 Allergy status to penicillin; Z3A.21 21 weeks gestation of pregnancy
CPT/HCPCS: 59899; 87210; 81001; 80307; 87491; 87591; Q0114; G0480 ×2; 80349

== ENCOUNTER 2020-04-26 19:44 | Outpatient (CLI) | payer OTHER ==
[2020-04-26] MEDS ORDERED: PROMETHAZINE HCL INJ 25 MG/1 ML VIAL ONE (20:01)
[2020-04-26] MEDS ORDERED: RINGERS SOLUTION,LACTATED 1,000 ML IV ONE (20:02)
[2020-04-26] MEDS ORDERED: RINGERS SOLUTION,LACTATED 1,000 ML IV PRN (20:02)
[2020-04-26] MEDS ORDERED: PROMETHAZINE HCL INJ 25 MG/1 ML VIAL IV ONE (20:04)
[2020-04-26] MEDS ORDERED: MAG HYDROX/AL HYDROX/SIMETH SUSP 30 ML UDCUP ONE (20:38)
[2020-04-26] MEDS ORDERED: MAG HYDROX/AL HYDROX/SIMETH SUSP 30 ML UDCUP PO ONE (20:42)
[2020-04-26 22:18] LABS: ABSOLUTE LYMPHOCYTES (AUTO) 1.7 10^3/uL (0.5-4.7); ABSOLUTE MONOCYTES (AUTO) 0.6 10^3/uL (0.1-1.4); ABSOLUTE NEUT (AUTO) 7.9 10^3/uL (1.7-8.2); BASOPHILS % (AUTO) 0.4 % (0-2); EOSINOPHILS % (AUTO) 0.4 % (0-6); HEMATOCRIT 33.7 % (36.0-47.0); HEMOGLOBIN 12.1 g/dL (12.0-15.5); LYMPHOCYTES % (AUTO) 16.5 % (13-45); MEAN CORPUSCULAR HEMOGLOBIN 33.5 pg (27.0-33.4); MEAN CORPUSCULAR HGB CONC 36.1 g/dL (32.0-36.0); MEAN CORPUSCULAR VOLUME 93 fl (80-97); MONOCYTES % (AUTO) 5.4 % (3-13); PLATELET COUNT 448 10^3/uL (150-450); RED BLOOD COUNT 3.62 10^6/uL (3.72-5.28); RED CELL DISTRIBUTION WIDTH 13.1 % (11.5-14.0); SEGMENTED NEUTROPHILS % (AUTO) 77.3 % (42-78); TOTAL CELLS COUNTED % (AUTO) 100 %; WHITE BLOOD COUNT 10.3 10^3/uL (4.0-10.5)
[2020-04-26 22:26] LABS: APPEARANCE,URINE CLEAR; BILIRUBIN,URINE NEGATIVE (NEGATIVE); COLOR,URINE STRAW; GLUCOSE, URINE NEGATIVE (NEGATIVE); KETONES,URINE 20 mg/dL (NEGATIVE); LEUKOCYTE ESTERASE,URINE NEGATIVE (NEGATIVE); NITRITE,URINE NEGATIVE (NEGATIVE); PROTEIN,URINE NEGATIVE (NEGATIVE); URINE SPECIFIC GRAVITY 1.005; UROBILINOGEN,URINE NEGATIVE mg/dL (<2.0)
[2020-04-26 22:29] LABS: ALBUMIN 4.2 g/dL (3.5-5.0); ALKALINE PHOSPHATASE 59 U/L (38-126); ANION GAP 12 (5-19); ASPARTATE AMINO TRANSFERASE 25 U/L (14-36); BILIRUBIN,TOTAL 0.4 mg/dL (0.2-1.3); BLOOD UREA NITROGEN 7 mg/dL (7-20); CALCIUM 10.2 mg/dL (8.4-10.2); CARBON DIOXIDE 25 mmol/L (22-30); CHLORIDE 98 mmol/L (98-107); GLUCOSE 103 mg/dL (75-110); POTASSIUM 3.6 mmol/L (3.6-5.0); TOTAL PROTEIN 6.9 g/dL (6.3-8.2)
[2020-04-26 22:33] LABS: URINE AMPHETAMINES SCREEN NEGATIVE; URINE BARBITURATES SCREEN NEGATIVE; URINE BENZODIAZEPINES SCREEN NEGATIVE; URINE COCAINE SCREEN NEGATIVE; URINE METHADONE SCREEN NEGATIVE; URINE PHENCYCLIDINE SCREEN NEGATIVE
[2020-04-26 22:39] LABS: URINE MARIJUANA (THC) SCREEN UNCONFIRMED POSITIVE
== END 2020-04-26 23:38 | disposition home or self-care (01) ==
LOC: LC 19:44
PROVIDERS: ATTEND Obstetrics & Gynecology Gynecology
DX: O21.2 Late vomiting of pregnancy (principal); Z3A.22 22 weeks gestation of pregnancy; Z88.0 Allergy status to penicillin
CPT/HCPCS: 59899; 36415; 85025; 80053; 81001; 80307; J2550

== ENCOUNTER 2020-04-28 11:29 | Inpatient (IN) | payer OTHER ==
[2020-04-28] MEDS ORDERED: PROMETHAZINE HCL INJ 25 MG/1 ML VIAL IV ONE (11:50)
[2020-04-28] MEDS ORDERED: ONDANSETRON HCL INJ/PF 4 MG/2 ML SDV IV ONE (11:50)
[2020-04-28] MEDS ORDERED: PROMETHAZINE HCL INJ 25 MG/1 ML VIAL ONE (12:09)
[2020-04-28] MEDS ORDERED: ONDANSETRON HCL INJ/PF 4 MG/2 ML SDV ONE ×2 (12:09→21:52)
[2020-04-28] MEDS: RINGERS SOLUTION,LACTATED 1,000 ML IV PRN ×2 (12:10→13:12)
[2020-04-28 12:58] LABS: APPEARANCE,URINE CLEAR; BILIRUBIN,URINE NEGATIVE (NEGATIVE); COLOR,URINE STRAW; GLUCOSE, URINE NEGATIVE (NEGATIVE); KETONES,URINE 20 mg/dL (NEGATIVE); LEUKOCYTE ESTERASE,URINE TRACE (NEGATIVE); NITRITE,URINE NEGATIVE (NEGATIVE); PROTEIN,URINE NEGATIVE (NEGATIVE); URINE SPECIFIC GRAVITY 1.005; UROBILINOGEN,URINE NEGATIVE mg/dL (<2.0)
[2020-04-28 13:08] LABS: URINE AMPHETAMINES SCREEN NEGATIVE; URINE BARBITURATES SCREEN NEGATIVE; URINE BENZODIAZEPINES SCREEN NEGATIVE; URINE COCAINE SCREEN NEGATIVE; URINE METHADONE SCREEN NEGATIVE; URINE PHENCYCLIDINE SCREEN NEGATIVE
[2020-04-28 13:15] LABS: URINE MARIJUANA (THC) SCREEN UNCONFIRMED POSITIVE
--- NOTE | 2020-04-28 13:54 | Admission Physical ---
Datetime Report Generated by CPN: 04/28/2020 13:54 CURRENT ADMISSION Chief Complaint: Other Chief Complaint Other: hyperemesis Indication for Induction: Not Applicable Admit Impression : Medical Complication Admit Impression- Other: hyperemsis Admit Plan: Admit to Unit ALLERGIES Medication Allergies: Yes Medication Allergies: Penicillins/MO/Hives (04/26/2020) OBSTETRICAL HISTORY EDC: 08/25/2020 00:00 : 2 Para: 1 Term: 1 Livin Gestational Diabetes: Yes Rh Sensitization: No Incompetent Cervix: No NATALIA: No Infertility: No ART Treatment: No Uterine Anomaly: No IUGR: No Hx Previous C/S: No Macrosomia: No Hx Loss/Stillborn: No PIH: No Hx : No Placenta Previa/Abruption: No Depression/PP Depression: Yes PTL/PROM: No Post Hemorrhage: No Current Procedures: Ultrasound Obstetrical History Comments: 2016 GDM G2-current;diet controlled GDM, hyperemesis SEE RECORDS Alcohol: No Marijuana : Yes Marijuana Comments: tried once and did not try go further. Cocaine: No Other Illicit Drugs: No Cigarettes: Never Smoker. [id number] MEDICAL HISTORY Diabetes: Yes Diabetes Type: Gestational Diabetes Blood Transfusion: No Pulmonary Disease (Asthma, TB): No Breast Disease: No Hypertension: Unknown Data Management Surgery: No Heart Disease: No Hosp/Surgery: Yes Autoimmune Disorder: No Anesthetic Complications: No Kidney Disease: No Abnormal Pap Smear: No Neuro/Epilepsy: No Psychiatric Disorders: Yes Other Medical Diseases: No Hepatitis/Liver Disease: No Significant Family History: No Varicosities/Phlebitis: No Trauma/Violence : No Thyroid Dysfunction: No Medical History Comments: hx GDM G1, hyperemesis, anxiety, depression, childbirth, INFECTIOUS HISTORY Gonorrhea: No Genital Herpes: No Chlamydia: Yes Tuberculosis: No Syphilis: No Hepatitis: No HIV/AIDS Exposure: No Rash or Viral Illness: No HPV: No Infectious History Comments: chlamydia last PHYSICAL EXAM General: Normal HEENT: Normal Neurologic: Normal Thyroid: Normal Heart: Normal Lungs: Normal Breast: Deferred Back: Normal Abdomen: Normal Genitourinary Exam: Normal Extremities: Normal DTRs: Normal Pelvic Type: Adequate Vital Signs: Reviewed FETUS A EGA: 23.0 Monitoring: Auscultation FHR- Baseline: 140 Decelerations: None FHR Category: Category I Admit Comment: Admit for IV fluids, maybe a Dobb-Nissa tube for enteral feedings or [place]line and TPN. PLANS FOR LABOR AND DELIVERY Labor and Delivery: None Pain Management: Epidural Feeding Preference: Formula Benefit of Breast Feed Discussed: Yes INFORMED CONSENT Signature: with User ID: [email or web address]
[2020-04-28] MEDS ORDERED: ONDANSETRON HCL 8 MG TABLET PO PRN (14:03)
[2020-04-28] MEDS ORDERED: PROMETHAZINE HCL 6.25 MG/5 ML SYRUP 60 ML PO PRN (14:03)
[2020-04-28 14:14] LABS: ABSOLUTE LYMPHOCYTES (AUTO) 1.3 10^3/uL (0.5-4.7); ABSOLUTE MONOCYTES (AUTO) 0.3 10^3/uL (0.1-1.4); ABSOLUTE NEUT (AUTO) 6.2 10^3/uL (1.7-8.2); BASOPHILS % (AUTO) 0.2 % (0-2); EOSINOPHILS % (AUTO) 0.1 % (0-6); HEMATOCRIT 31.8 % (36.0-47.0); HEMOGLOBIN 11.6 g/dL (12.0-15.5); LYMPHOCYTES % (AUTO) 16.6 % (13-45); MEAN CORPUSCULAR HEMOGLOBIN 33.9 pg (27.0-33.4); MEAN CORPUSCULAR HGB CONC 36.6 g/dL (32.0-36.0); MEAN CORPUSCULAR VOLUME 93 fl (80-97); MONOCYTES % (AUTO) 4.1 % (3-13); PLATELET COUNT 416 10^3/uL (150-450); RED BLOOD COUNT 3.43 10^6/uL (3.72-5.28); RED CELL DISTRIBUTION WIDTH 13.1 % (11.5-14.0); TOTAL CELLS COUNTED % (AUTO) 100 %; WHITE BLOOD COUNT 7.9 10^3/uL (4.0-10.5)
[2020-04-28 14:32] LABS: ALBUMIN 3.8 g/dL (3.5-5.0); ALKALINE PHOSPHATASE 60 U/L (38-126); ANION GAP 10 (5-19); ASPARTATE AMINO TRANSFERASE 19 U/L (14-36); BILIRUBIN,TOTAL 0.3 mg/dL (0.2-1.3); BLOOD UREA NITROGEN 4 mg/dL (7-20); CALCIUM 9.5 mg/dL (8.4-10.2); CARBON DIOXIDE 20 mmol/L (22-30); CHLORIDE 104 mmol/L (98-107); GLUCOSE 98 mg/dL (75-110); TOTAL PROTEIN 6.3 g/dL (6.3-8.2)
[2020-04-28] MEDS: DEXTROSE 5%-LACTATED RINGERS 1,000 ML IV PRN (15:13)
[2020-04-28] MEDS: FAMOTIDINE INJ/PF 20 MG/2 ML SDV IV SCH (15:51)
[2020-04-28] MEDS ORDERED: PROMETHAZINE HCL 25 MG SUPP.RECT PR PRN (18:04)
[2020-04-28] MEDS ORDERED: PROMETHAZINE HCL 25 MG SUPP.RECT PR ONE (18:08)
[2020-04-28] MEDS: PROMETHAZINE HCL 25 MG SUPP.RECT PR PRN (18:11)
[2020-04-28] MEDS ORDERED: FAMOTIDINE INJ/PF 20 MG/2 ML SDV IV SCH (22:00)
[2020-04-29] MEDS ORDERED: PROMETHAZINE HCL 25 MG SUPP.RECT PR ONE ×2 (02:21→10:34)
[2020-04-29] MEDS: PROMETHAZINE HCL 25 MG SUPP.RECT PR PRN ×2 (02:24→10:35)
[2020-04-29] MEDS: DEXTROSE 5%-LACTATED RINGERS 1,000 ML IV PRN ×3 (02:25→17:20)
[2020-04-29] MEDS: ONDANSETRON HCL INJ/PF 4 MG/2 ML SDV IV PRN ×2 (06:41→17:19)
[2020-04-29] MEDS: FAMOTIDINE INJ/PF 20 MG/2 ML SDV IV SCH ×2 (06:41→17:20)
--- NOTE | 2020-04-29 09:37 | PDOC PROGRESS REPORT ---
Subjective Progress Note for:: 04/29/20 Subjective:: Patient seen and examined. indicates she is feeling better than she was at admission. not vomiting currently. Reason For Visit: HYPEREMESIS Physical Exam - Physical Exam Vital Signs: Temp Pulse Resp BP Pulse Ox 97.8 F 86 18 119/67 100 04/29/20 07:39 04/29/20 07:39 04/29/20 07:39 04/29/20 07:39 04/29/20 07:39 Intake & Output 04/28/20 04/29/20 04/30/20 06:59 06:59 06:59 Intake Total 2324 Output Total 550 Balance 1774 Weight 44.6 kg General appearance: PRESENT: no acute distress, cooperative - abdomen soft and nontender. uterine fundus at umbilicus. Result Laboratory Results: 04/28/20 14:00 04/28/20 14:00 04/28/20 04/28/20 04/28/20 12:33 14:00 14:00 WBC 7.9 RBC 3.43 L Hgb 11.6 L Hct 31.8 L MCV 93 MCH 33.9 H MCHC 36.6 H RDW 13.1 Plt Count 416 Seg Neutrophils % 79.0 H Sodium 133.7 L Potassium 4.0 Chloride 104 Carbon Dioxide 20 L Anion Gap 10 BUN 4 L Creatinine 0.41 L Est GFR ( Amer) > 60 Glucose 98 Calcium 9.5 Total Bilirubin 0.3 AST 19 Alkaline Phosphatase 60 Total Protein 6.3 Albumin 3.8 Urine Color STRAW Urine Appearance CLEAR Urine pH 9.0 Ur Specific [place] 1.005 Urine Protein NEGATIVE Urine Glucose (UA) NEGATIVE Urine Ketones 20 H Urine Blood MODERATE H Urine Nitrite NEGATIVE Ur Leukocyte Esterase TRACE H Urine WBC (Auto) 0 Urine RBC (Auto) 1 Assessment & Plan - Diagnosis (1) Gestational diabetes Qualifiers: Gestational diabetes mellitus control: diet-controlled Is this a current diagnosis for this admission?: Yes (2) Hyperemesis gravidarum Is this a current diagnosis for this admission?: Yes (3) Hyponatremia Is this a current diagnosis for this admission?: Yes - Time Time Spent with patient: Less than 15 minutes - Inpatient Certification Based on my medical assessment, after consideration of the patient's comorbidities, presenting symptoms, or acuity I expect that the services needed warrant INPATIENT care.: Yes I certify that my determination is in accordance with my understanding of Medicare's requirements for reasonable and necessary INPATIENT services [42 CFR 412.3e].: Yes Medical Necessity: Need For IV Fluids - affliated with this patient from previous admissions this for similar complaints. will continue current management and plan for discharge in AM after recheck of electrolytes.
[2020-04-30] MEDS: DEXTROSE 5%-LACTATED RINGERS 1,000 ML IV PRN ×2 (01:42→12:17)
[2020-04-30] MEDS: FAMOTIDINE INJ/PF 20 MG/2 ML SDV IV SCH (05:25)
[2020-04-30 05:57] LABS: HEMATOCRIT 27.2 % (36.0-47.0); HEMOGLOBIN 9.8 g/dL (12.0-15.5); MEAN CORPUSCULAR HEMOGLOBIN 34.4 pg (27.0-33.4); MEAN CORPUSCULAR HGB CONC 35.9 g/dL (32.0-36.0); MEAN CORPUSCULAR VOLUME 96 fl (80-97); PLATELET COUNT 305 10^3/uL (150-450); RED BLOOD COUNT 2.84 10^6/uL (3.72-5.28); RED CELL DISTRIBUTION WIDTH 12.8 % (11.5-14.0); WHITE BLOOD COUNT 5.7 10^3/uL (4.0-10.5)
[2020-04-30 06:17] LABS: ALBUMIN 2.8 g/dL (3.5-5.0); ALKALINE PHOSPHATASE 41 U/L (38-126); ASPARTATE AMINO TRANSFERASE 13 U/L (14-36); BILIRUBIN,TOTAL 0.1 mg/dL (0.2-1.3); BLOOD UREA NITROGEN 3 mg/dL (7-20); CALCIUM 8.7 mg/dL (8.4-10.2); CARBON DIOXIDE 24 mmol/L (22-30); GLUCOSE 87 mg/dL (75-110); POTASSIUM 3.4 mmol/L (3.6-5.0); TOTAL PROTEIN 5.2 g/dL (6.3-8.2)
[2020-04-30 06:19] LABS: ANION GAP 5 (5-19); CHLORIDE 105 mmol/L (98-107)
[2020-04-30] MEDS: ONDANSETRON HCL INJ/PF 4 MG/2 ML SDV IV PRN (08:00)
[2020-04-30] MEDS ORDERED: SCOPOLAMINE HYDROBROMIDE 1.5 MG PATCH.TD72 TD SCH (11:00)
[2020-04-30 11:50] VITALS: BP 134/69
[2020-04-30] MEDS ORDERED: ONDANSETRON 4 MG TAB.RAPDIS PO PRN (14:02)
--- NOTE | 2020-04-30 17:33 | PDOC DISCHARGE SUMMARY ---
Impression - Admit/DC Date/PCP Admission Date/Primary Care Provider: 04/28/20 14:01 ZACKERY BORJAS MD Discharge Date: 04/30/20 - Discharge Diagnosis (1) Cannabinoid hyperemesis syndrome Is this a current diagnosis for this admission?: Yes - Assessment Summary: pt has been admitted since wednesday evening. No emesis since last night and tolerated po intake breakfast and lunch - Additional Information Resuscitation Status: Full Code Discharge Diet: As Tolerated Discharge Activity: Activity As Tolerated, Pelvic Rest Referrals: KARLOS JONES CNM [CERTIFIED NURSE [employer]ST[employer]ER] - 05/03/20 1:00 pm (CALL THE OFFICE FOR ANY QUESTIONS OR CONCERNS.) Home Medications: Metoclopramide HCl [Reglan 10 mg Tablet] 10 mg PO BIDBS 03/01/20 Ondansetron HCl [Zofran 8 mg Tablet] 8 mg PO Q8 04/20/20 Doxylamine Succinate/Vit B6 [Diclegis Dr 10-10 mg Tablet] 1 tab PO DAILY 04/30/20 Omeprazole 20 mg PO DAILY 04/30/20 Promethazine HCl [Phenergan 25 mg Supp.rect] 25 mg [place] Q4HP PRN 04/30/20 Scopolamine 1 patch TOP Q3DAYS 04/30/20 History of Present Illiness History of Present Illness: ARTUR CHRISTOPHER is a 24 year old female tolerating po since last night with no emesis Hospital Course Hospital Course: patient admitted for n/v and now tolerating po since last night Physical Exam - Physical Exam Vital Signs: Temp Pulse Resp BP Pulse Ox 97.9 F 95 16 134/69 H 100 04/30/20 11:25 04/30/20 11:25 04/30/20 11:25 04/30/20 11:25 04/30/20 11:25 Intake & Output 04/29/20 04/30/20 05/01/20 06:59 06:59 06:59 Intake Total 2324 4064 1000 Output Total 550 100 Balance 1774 3964 1000 Weight 44.6 kg 44.6 kg General appearance: PRESENT: no acute distress, well-developed, well-nourished Head exam: PRESENT: atraumatic, normocephalic Neck exam: PRESENT: full ROM. ABSENT: carotid bruit, JVD, lymphadenopathy, thyromegaly Respiratory exam: PRESENT: clear to auscultation drew, symmetrical, unlabored Cardiovascular exam: PRESENT: RRR. ABSENT: diastolic murmur, rubs, systolic murmur Pulses: PRESENT: normal dorsalis pedis pul, +2 pedal pulses bilateral Vascular exam: PRESENT: normal capillary refill GI/Abdominal exam: PRESENT: normal bowel sounds, soft. ABSENT: distended, guarding, mass, organolmegaly, rebound, tenderness Rectal exam: PRESENT: deferred Extremities exam: PRESENT: full ROM. ABSENT: calf tenderness, clubbing, pedal edema Neurological exam: PRESENT: alert, awake, oriented to person, oriented to place, oriented to time, oriented to situation, CN II-XII grossly intact. ABSENT: motor sensory deficit Psychiatric exam: PRESENT: appropriate affect, normal mood. ABSENT: homicidal ideation, suicidal ideation Skin exam: PRESENT: dry, intact, warm. ABSENT: cyanosis, rash Results Laboratory Results: WBC 5.7 10^3/uL (4.0-10.5) 04/30/20 05:30 RBC 2.84 10^6/uL (3.72-5.28) L 04/30/20 05:30 Hgb 9.8 g/dL (12.0-15.5) L 04/30/20 05:30 Hct 27.2 % (36.0-47.0) L 04/30/20 05:30 MCV 96 fl (80-97) 04/30/20 05:30 MCH 34.4 pg (27.0-33.4) H 04/30/20 05:30 MCHC 35.9 g/dL (32.0-36.0) 04/30/20 05:30 RDW 12.8 % (11.5-14.0) 04/30/20 05:30 Plt Count 305 10^3/uL (150-450) 04/30/20 05:30 Lymph % (Auto) 16.6 % (13-45) 04/28/20 14:00 [place] % (Auto) 4.1 % (3-13) 04/28/20 14:00 Eos % (Auto) 0.1 % (0-6) 04/28/20 14:00 Baso % (Auto) 0.2 % (0-2) 04/28/20 14:00 Absolute Neuts (auto) 6.2 10^3/uL (1.7-8.2) 04/28/20 14:00 Absolute Lymphs (auto) 1.3 10^3/uL (0.5-4.7) 04/28/20 14:00 Absolute Monos (auto) 0.3 10^3/uL (0.1-1.4) 04/28/20 14:00 Absolute Eos (auto) 0.0 10^3/uL (0.0-0.6) 04/28/20 14:00 Absolute Basos (auto) 0.0 10^3/uL (0.0-0.2) 04/28/20 14:00 Seg Neutrophils % 79.0 % (42-78) H 04/28/20 14:00 Sodium 133.7 mmol/L (137-145) L 04/30/20 05:30 Potassium 3.4 mmol/L (3.6-5.0) L 04/30/20 05:30 Chloride 105 mmol/L (98-107) 04/30/20 05:30 Carbon Dioxide 24 mmol/L (22-30) 04/30/20 05:30 Anion Gap 5 (5-19) 04/30/20 05:30 BUN 3 mg/dL (7-20) L 04/30/20 05:30 Creatinine 0.43 mg/dL (0.52-1.25) L 04/30/20 05:30 Est GFR ( Amer) > 60 (>60) 04/30/20 05:30 Est GFR (MDRD) Non-Af > 60 (>60) 04/30/20 05:30 Glucose 87 mg/dL (75-110) 04/30/20 05:30 Calcium 8.7 mg/dL (8.4-10.2) 04/30/20 05:30 Total Bilirubin 0.1 mg/dL (0.2-1.3) L 04/30/20 05:30 Direct Bilirubin 0.0 mg/dL (0.0-0.4) 04/30/20 05:30 Neonat Total Bilirubin Not Reportable 04/30/20 05:30 Neonat Direct Bilirubin Not Reportable 04/30/20 05:30 Neonat Indirect Bili Not Reportable 04/30/20 05:30 AST 13 U/L (14-36) L 04/30/20 05:30 ALT 8 U/L (<35) 04/30/20 05:30 Alkaline Phosphatase 41 U/L (38-126) 04/30/20 05:30 Total Protein 5.2 g/dL (6.3-8.2) L 04/30/20 05:30 Albumin 2.8 g/dL (3.5-5.0) L 04/30/20 05:30 Urine Color STRAW 04/28/20 12:33 Urine Appearance CLEAR 04/28/20 12:33 Urine pH 9.0 (5.0-9.0) 04/28/20 12:33 Ur Specific [place] 1.005 04/28/20 12:33 Urine Protein NEGATIVE mg/dL (NEGATIVE) 04/28/20 12:33 Urine Glucose (UA) NEGATIVE mg/dL (NEGATIVE) 04/28/20 12:33 Urine Ketones 20 mg/dL (NEGATIVE) H 04/28/20 12:33 Urine Blood MODERATE (NEGATIVE) H 04/28/20 12:33 Urine Nitrite NEGATIVE (NEGATIVE) 04/28/20 12:33 Urine Bilirubin NEGATIVE (NEGATIVE) 04/28/20 12:33 Urine Urobilinogen NEGATIVE mg/dL (<2.0) 04/28/20 12:33 Ur Leukocyte Esterase TRACE (NEGATIVE) H 04/28/20 12:33 Urine WBC (Auto) 0 /HPF 04/28/20 12:33 Urine RBC (Auto) 1 /HPF 04/28/20 12:33 Urine Bacteria (Auto) 1+ /HPF 04/28/20 12:33 Squamous Epi Cells Auto 1 /HPF 04/28/20 12:33 Urine Ascorbic Acid NEGATIVE (NEGATIVE) 04/28/20 12:33 Urine Opiates Screen NEGATIVE 04/28/20 12:33 Urine Methadone Screen NEGATIVE 04/28/20 12:33 Ur Barbiturates Screen NEGATIVE 04/28/20 12:33 Ur Phencyclidine Scrn NEGATIVE 04/28/20 12:33 Ur Amphetamines Screen NEGATIVE 04/28/20 12:33 U Benzodiazepines Scrn NEGATIVE 04/28/20 12:33 Urine Cocaine Screen NEGATIVE 04/28/20 12:33 U Marijuana (THC) Screen UNCONFIRMED POSITIVE 04/28/20 12:33 Stroke Is this a Stroke Patient?: No Acute Heart Failure - Is this a Heart Failure Patient?: No
[2020-04-30] MEDS ORDERED: FAMOTIDINE 20 MG TABLET PO SCH (22:00)
== END 2020-04-30 18:33 | disposition home or self-care (01) | DRG 833 ==
LOC: LC 11:29 → LR 14:01 → 2S 14:48
PROVIDERS: ADMIT Obstetrics & Gynecology; ATTEND Obstetrics & Gynecology
DX: O21.1 Hyperemesis gravidarum with metabolic disturbance (principal); O24.410 Gestational diabetes mellitus in pregnancy, diet controlled; O99.342 Other mental disorders complicating pregnancy, second trimester; F12.188 Cannabis abuse with other cannabis-induced disorder; F41.8 Other specified anxiety disorders; Z3A.23 23 weeks gestation of pregnancy
CPT/HCPCS: 36415; 80053; 80307; 80349; 81001; 85025; 85027; G0480; J2405; J2550; J3490; J7121; S0028

== ENCOUNTER 2020-05-14 20:10 | Observation (INO) | payer OTHER ==
[2020-05-14] MEDS ORDERED: PROMETHAZINE HCL INJ 25 MG/1 ML VIAL ONE (20:46)
[2020-05-14] MEDS ORDERED: RINGERS SOLUTION,LACTATED 1,000 ML IV PRN (21:01)
[2020-05-14] MEDS ORDERED: PROMETHAZINE HCL INJ 25 MG/1 ML VIAL IV ONE (21:02)
[2020-05-14] MEDS ORDERED: DEXTROSE 5%-LACTATED RINGERS 1,000 ML IV PRN (21:03)
[2020-05-14] MEDS ORDERED: SCOPOLAMINE HYDROBROMIDE 1.5 MG PATCH.TD72 TD ONE (22:00)
[2020-05-14 23:16] LABS: APPEARANCE,URINE SLIGHTLY-CLOUDY; BILIRUBIN,URINE NEGATIVE (NEGATIVE); COLOR,URINE YELLOW; GLUCOSE, URINE NEGATIVE (NEGATIVE); KETONES,URINE NEGATIVE (NEGATIVE); LEUKOCYTE ESTERASE,URINE TRACE (NEGATIVE); NITRITE,URINE NEGATIVE (NEGATIVE); PROTEIN,URINE NEGATIVE (NEGATIVE); URINE SPECIFIC GRAVITY 1.008; UROBILINOGEN,URINE NEGATIVE mg/dL (<2.0)
[2020-05-14 23:34] LABS: URINE AMPHETAMINES SCREEN NEGATIVE; URINE BARBITURATES SCREEN NEGATIVE; URINE BENZODIAZEPINES SCREEN NEGATIVE; URINE COCAINE SCREEN NEGATIVE; URINE METHADONE SCREEN NEGATIVE; URINE PHENCYCLIDINE SCREEN NEGATIVE
[2020-05-14] MEDS ORDERED: ONDANSETRON HCL INJ/PF 4 MG/2 ML SDV ONE (23:36)
[2020-05-14 23:41] LABS: URINE MARIJUANA (THC) SCREEN UNCONFIRMED POSITIVE
[2020-05-14] MEDS ORDERED: ONDANSETRON HCL INJ/PF 4 MG/2 ML SDV IV ONE (23:59)
[2020-05-15] MEDS ORDERED: ONDANSETRON HCL INJ/PF 4 MG/2 ML SDV ONE (06:53)
[2020-05-15] MEDS ORDERED: PROMETHAZINE HCL INJ 25 MG/1 ML VIAL IV PRN (07:53)
[2020-05-15] MEDS ORDERED: METOCLOPRAMIDE HCL INJ/PF 10 MG/2 ML SDV IV SCH (08:00)
--- NOTE | 2020-05-15 08:32 | PDOC H&P ---
History of Present Illness Admission Date/PCP: ZACKERY BORJAS MD History of Present Illness: ARTUR CHRISTOPHER is a 24 year old female at approximately 25.2 weeks EGA presenting today with nausea and vomiting x 4 days. She reports not even able to keep medications like reglan and zofran down yesterday. is complicated by hyperemeiss and A1GDM. She also has hx of marijuana use in . Prior complicated by PReeclampsia, A1GDM and hyperemisis Reports good FM. Mild epigastric pain. Past Medical History Psychiatric Medical History: Reports: Depression Social History Smoking Status: Never Smoker Electronic Cigarette use?: No Frequency of Alcohol Use: None Hx Recreational Drug Use: Yes Drugs: Marijuana Hx Prescription Drug Abuse: No Family History Family History: Reviewed & Not Pertinent, Arthritis, Thyroid Disfunction Parental Family History Reviewed: Yes Children Family History Reviewed: Yes Sibling(s) Family History Reviewed.: Yes Medication/Allergy Home Medications: Metoclopramide HCl [Reglan 10 mg Tablet] 10 mg PO BIDBS 03/01/20 Ondansetron HCl [Zofran 8 mg Tablet] 8 mg PO Q8 04/20/20 Doxylamine Succinate/Vit B6 [Diclegis Dr 10-10 mg Tablet] 1 tab PO DAILY 04/30/20 Omeprazole 20 mg PO DAILY 04/30/20 Promethazine HCl [Phenergan 25 mg Supp.rect] 25 mg [place] Q4HP PRN 04/30/20 Scopolamine 1 patch TOP Q3DAYS 04/30/20 Allergies/Adverse Reactions: Penicillins Allergy (Intermediate, Verified 04/26/20 20:39) Hives Review of Systems Constitutional: ABSENT: chills, fever(s), headache(s), weight gain, weight loss Cardiovascular: ABSENT: chest pain, dyspnea on exertion, edema, orthropnea, palpitations Respiratory: ABSENT: cough, hemoptysis Gastrointestinal: PRESENT: nausea, vomiting. ABSENT: abdominal pain, constipation, diarrhea, hematemesis, hematochezia Musculoskeletal: ABSENT: joint swelling Integumentary: ABSENT: rash, wounds Neurological: ABSENT: abnormal gait, abnormal speech, confusion, dizziness, focal weakness, syncope Physical Exam - Physical Exam General appearance: PRESENT: no acute distress, cooperative Mouth exam: PRESENT: dry mucosa Respiratory exam: PRESENT: clear to auscultation drew Cardiovascular exam: PRESENT: RRR, +S1, +S2 Vascular exam: PRESENT: normal capillary refill GI/Abdominal exam: PRESENT: soft - NOn-tender to palpation Neurological exam: PRESENT: alert, altered, awake, oriented to person, oriented to place, oriented to time Skin exam: PRESENT: dry, warm Result Laboratory Results: 05/14/20 20:16 Urine Color YELLOW Urine Appearance SLIGHTLY-CLOUDY Urine pH 7.0 Ur Specific [place] 1.008 Urine Protein NEGATIVE Urine Glucose (UA) NEGATIVE Urine Ketones NEGATIVE Urine Blood SMALL H Urine Nitrite NEGATIVE Ur Leukocyte Esterase TRACE H Urine WBC (Auto) 6 Urine RBC (Auto) 2 Assessment & Plan - Diagnosis (1) Cannabinoid hyperemesis syndrome Is this a current diagnosis for this admission?: Yes (2) Hyperemesis gravidarum Is this a current diagnosis for this admission?: Yes - Time Critical Time spent with patient: 15-24 minutes - Plan Summary Plan Summary: 24 yo at 25.2 wks EGA with intractable N/v d/t hyperemesis in and further complicated by marijauna use in -Admit to antepartum bed for observation and treatment -VS Q shift -Labs pending -UA w/ high specific gravity and 3+ bacteria. UC ordered -FHT Q shift -IVFs LR at 150 cc/hr after initial vitamin bag x1 -May have bland diet as tolerating -Scopolamine patch transdermal -Zofran 8mg Q 6 hrs prn nauesea, Phenergan 12.5 mg IV Q 8 hours for persistent n/v -Takes Reglan at home: with breakfast and dinner. Continue Reglan 10mg BID with breakfast and dinner -Out of bed as tolerated
[2020-05-15 08:34] LABS: ABSOLUTE EOSINOPHILS # (AUTO) 0.1 10^3/uL (0.0-0.6); ABSOLUTE LYMPHOCYTES (AUTO) 2.8 10^3/uL (0.5-4.7); ABSOLUTE MONOCYTES (AUTO) 0.8 10^3/uL (0.1-1.4); ABSOLUTE NEUT (AUTO) 5.5 10^3/uL (1.7-8.2); BASOPHILS % (AUTO) 0.3 % (0-2); EOSINOPHILS % (AUTO) 0.8 % (0-6); HEMATOCRIT 29.5 % (36.0-47.0); HEMOGLOBIN 11.1 g/dL (12.0-15.5); LYMPHOCYTES % (AUTO) 30.5 % (13-45); MEAN CORPUSCULAR HEMOGLOBIN 33.8 pg (27.0-33.4); MONOCYTES % (AUTO) 8.3 % (3-13); PLATELET COUNT 430 10^3/uL (150-450); RED BLOOD COUNT 3.28 10^6/uL (3.72-5.28); RED CELL DISTRIBUTION WIDTH 12.8 % (11.5-14.0); SEGMENTED NEUTROPHILS % (AUTO) 60.1 % (42-78); TOTAL CELLS COUNTED % (AUTO) 100 %; WHITE BLOOD COUNT 9.2 10^3/uL (4.0-10.5)
[2020-05-15 08:43] LABS: ALBUMIN 3.2 g/dL (3.5-5.0); ALKALINE PHOSPHATASE 58 U/L (38-126); ANION GAP 5 (5-19); ASPARTATE AMINO TRANSFERASE 12 U/L (14-36); BILIRUBIN,TOTAL 0.3 mg/dL (0.2-1.3); BLOOD UREA NITROGEN 6 mg/dL (7-20); CARBON DIOXIDE 34 mmol/L (22-30); CHLORIDE 91 mmol/L (98-107); GLUCOSE 106 mg/dL (75-110); TOTAL PROTEIN 5.5 g/dL (6.3-8.2)
[2020-05-15] MEDS ORDERED: RINGERS SOLUTION,LACTATED 1,000 ML IV PRN (08:47)
[2020-05-15 08:49] LABS: POTASSIUM 2.4 mmol/L (3.6-5.0)
[2020-05-15] MEDS ORDERED: POTASSI CL 20 MEQ/1/2NS 1L 20 MEQ/1,000 ML RTUINJ IV PRN (08:53)
[2020-05-15] MEDS ORDERED: CLINDAMYCIN 900 MG/D5W RTU 900 MG/50 ML RTUPB IV ONE ×2 (09:00→09:51)
[2020-05-15 09:09] LABS: MEAN CORPUSCULAR HGB CONC 37.6 g/dL (32.0-36.0); MEAN CORPUSCULAR VOLUME 90 fl (80-97)
[2020-05-15] MEDS ORDERED: NORMAL SALINE 1000 ML 1,000 ML with POTASSIUM CHLORIDE 20 MEQ, MAGNESIUM SULFATE 8 MEQ,... IV ONE ×5 (09:30)
[2020-05-15] MEDS ORDERED: METOCLOPRAMIDE HCL INJ/PF 10 MG/2 ML SDV ONE (09:50)
[2020-05-15] MEDS ORDERED: DIPHENHYDRAMINE HCL 50 MG/ML VIAL ONE (10:03)
[2020-05-15] MEDS ORDERED: DIPHENHYDRAMINE HCL 50 MG/ML VIAL IV ONE (10:50)
--- NOTE | 2020-05-15 11:13 | EKG REPORT ---
SEVERITY:- ABNORMAL ECG - SINUS RHYTHM NONSPECIFIC T ABNORMALITIES, INFERIOR LEADS : Confirmed by: Olga Gunter MD 15-May-2020 11:12:47
[2020-05-15] MEDS: POTASSI CL 20 MEQ/50 ML RIDER 20 MEQ/50 ML RTUPB IV SCH ×2 (12:24→15:03)
[2020-05-15] MEDS ORDERED: PROMETHAZINE HCL 25 MG SUPP.RECT PR PRN (18:15)
--- NOTE | 2020-05-15 18:45 | PDOC DISCHARGE SUMMARY ---
Impression - Admit/DC Date/PCP Admission Date/Primary Care Provider: 05/15/20 08:04 ZACKERY BORJAS MD Discharge Date: 05/15/20 - Discharge Diagnosis (1) Cannabinoid hyperemesis syndrome Is this a current diagnosis for this admission?: Yes (2) Hypokalemia Is this a current diagnosis for this admission?: Yes - Assessment Summary: Pt reports that she is feeling better and reports that she has not had any vomiting since this am. her meds today have been the same ones that she is on at home. She has been instructed previously to stop smoking THC. - Additional Information Resuscitation Status: Full Code Discharge Diet: As Tolerated Discharge Activity: Activity As Tolerated Referrals: ZACKERY BORJAS MD [Primary Care Provider] - Home Medications: Metoclopramide HCl [Reglan 10 mg Tablet] 10 mg PO BIDBS 03/01/20 Ondansetron HCl [Zofran 8 mg Tablet] 8 mg PO Q8 04/20/20 Omeprazole 20 mg PO DAILY 04/30/20 Promethazine HCl [Phenergan 25 mg Supp.rect] [address] Q4HP PRN 04/30/20 Scopolamine 1 patch TOP Q3DAYS 04/30/20 History of Present Illiness History of Present Illness: ARTUR CHRISTOPHER is a 24 year old female 25wks Pt reports that she is feeling better and reports that she has not had any vomiting since this am. her meds today have been the same ones that she is on at home. She has been instructed previously to stop smoking THC. Hospital Course Hospital Course: Pt reports that she is feeling better and reports that she has not had any vomiting since this am. her meds today have been the same ones that she is on at home. She has been instructed previously to stop smoking THC. Spoke with Hospitalist regarding labs and ok to give up to 80meq now since Cr ok and then 3 0meq for the next 3 days. Will give 40meq po now Physical Exam - Physical Exam Vital Signs: Temp Pulse Resp BP Pulse Ox 98.4 F 68 16 108/63 100 05/15/20 12:42 05/15/20 12:42 05/15/20 12:42 05/15/20 12:42 05/15/20 12:42 Intake & Output 05/14/20 05/15/20 05/16/20 06:59 06:59 06:59 Intake Total 50 Output Total 750 Balance -700 Weight 46.434 kg General appearance: PRESENT: no acute distress, well-developed, well-nourished Head exam: PRESENT: atraumatic, normocephalic Respiratory exam: PRESENT: clear to auscultation drew, symmetrical, unlabored Pulses: PRESENT: normal dorsalis pedis pul, +2 pedal pulses bilateral Vascular exam: PRESENT: normal capillary refill GI/Abdominal exam: PRESENT: normal bowel sounds, soft. ABSENT: distended, guarding, mass, organolmegaly, rebound, tenderness Rectal exam: PRESENT: deferred Extremities exam: PRESENT: full ROM. ABSENT: calf tenderness, clubbing, pedal edema Neurological exam: PRESENT: alert, awake, oriented to person, oriented to place, oriented to time, oriented to situation, CN II-XII grossly intact. ABSENT: motor sensory deficit Psychiatric exam: PRESENT: appropriate affect, normal mood. ABSENT: homicidal ideation, suicidal ideation Skin exam: PRESENT: dry, intact, warm. ABSENT: cyanosis, rash Results Laboratory Results: WBC 9.2 10^3/uL (4.0-10.5) 05/15/20 08:00 RBC 3.28 10^6/uL (3.72-5.28) L 05/15/20 08:00 Hgb 11.1 g/dL (12.0-15.5) L 05/15/20 08:00 Hct 29.5 % (36.0-47.0) L 05/15/20 08:00 MCV 90 fl (80-97) D 05/15/20 08:00 MCH 33.8 pg (27.0-33.4) H 05/15/20 08:00 MCHC 37.6 g/dL (32.0-36.0) H 05/15/20 08:00 RDW 12.8 % (11.5-14.0) 05/15/20 08:00 Plt Count 430 10^3/uL (150-450) 05/15/20 08:00 Lymph % (Auto) 30.5 % (13-45) 05/15/20 08:00 [place] % (Auto) 8.3 % (3-13) 05/15/20 08:00 Eos % (Auto) 0.8 % (0-6) 05/15/20 08:00 Baso % (Auto) 0.3 % (0-2) 05/15/20 08:00 Absolute Neuts (auto) 5.5 10^3/uL (1.7-8.2) 05/15/20 08:00 Absolute Lymphs (auto) 2.8 10^3/uL (0.5-4.7) 05/15/20 08:00 Absolute Monos (auto) 0.8 10^3/uL (0.1-1.4) 05/15/20 08:00 Absolute Eos (auto) 0.1 10^3/uL (0.0-0.6) 05/15/20 08:00 Absolute Basos (auto) 0.0 10^3/uL (0.0-0.2) 05/15/20 08:00 Seg Neutrophils % 60.1 % (42-78) 05/15/20 08:00 Sodium 129.5 mmol/L (137-145) L 05/15/20 08:00 Potassium 2.4 mmol/L (3.6-5.0) L* 05/15/20 08:00 Chloride 91 mmol/L (98-107) L 05/15/20 08:00 Carbon Dioxide 34 mmol/L (22-30) H 05/15/20 08:00 Anion Gap 5 (5-19) 05/15/20 08:00 BUN 6 mg/dL (7-20) L 05/15/20 08:00 Creatinine 0.42 mg/dL (0.52-1.25) L 05/15/20 08:00 Est GFR ( Amer) > 60 (>60) 05/15/20 08:00 Est GFR (MDRD) Non-Af > 60 (>60) 05/15/20 08:00 Glucose 106 mg/dL (75-110) 05/15/20 08:00 Calcium 9.0 mg/dL (8.4-10.2) 05/15/20 08:00 Magnesium 1.8 mg/dL (1.6-2.3) 05/15/20 08:00 Total Bilirubin 0.3 mg/dL (0.2-1.3) 05/15/20 08:00 Direct Bilirubin 0.0 mg/dL (0.0-0.4) 05/15/20 08:00 Neonat Total Bilirubin Not Reportable 05/15/20 08:00 Neonat Direct Bilirubin Not Reportable 05/15/20 08:00 Neonat Indirect Bili Not Reportable 05/15/20 08:00 AST 12 U/L (14-36) L 05/15/20 08:00 ALT 5 U/L (<35) 05/15/20 08:00 Alkaline Phosphatase 58 U/L (38-126) 05/15/20 08:00 Total Protein 5.5 g/dL (6.3-8.2) L 05/15/20 08:00 Albumin 3.2 g/dL (3.5-5.0) L 05/15/20 08:00 Lipase 31.3 U/L (23-300) 05/15/20 08:00 TSH 0.66 uIU/mL (0.47-4.68) 05/15/20 08:00 Urine Color YELLOW 05/14/20 20:16 Urine Appearance SLIGHTLY-CLOUDY 05/14/20 20:16 Urine pH 7.0 (5.0-9.0) 05/14/20 20:16 Ur Specific [place] 1.008 05/14/20 20:16 Urine Protein NEGATIVE mg/dL (NEGATIVE) 05/14/20 20:16 Urine Glucose (UA) NEGATIVE mg/dL (NEGATIVE) 05/14/20 20:16 Urine Ketones NEGATIVE mg/dL (NEGATIVE) 05/14/20 20:16 Urine Blood SMALL (NEGATIVE) H 05/14/20 20:16 Urine Nitrite NEGATIVE (NEGATIVE) 05/14/20 20:16 Urine Bilirubin NEGATIVE (NEGATIVE) 05/14/20 20:16 Urine Urobilinogen NEGATIVE mg/dL (<2.0) 05/14/20 20:16 Ur Leukocyte Esterase TRACE (NEGATIVE) H 05/14/20 20:16 Urine WBC (Auto) 6 /HPF 05/14/20 20:16 Urine RBC (Auto) 2 /HPF 05/14/20 20:16 Urine Bacteria (Auto) 3+ /HPF 05/14/20 20:16 Squamous Epi Cells Auto 6 /HPF 05/14/20 20:16 Urine Ascorbic Acid NEGATIVE (NEGATIVE) 05/14/20 20:16 Urine Opiates Screen NEGATIVE 06/30/20 20:16 Urine Methadone Screen NEGATIVE 05/14/20 20:16 Ur Barbiturates Screen NEGATIVE 05/14/20 20:16 Ur Phencyclidine Scrn NEGATIVE 05/14/20 20:16 Ur Amphetamines Screen NEGATIVE 05/14/20 20:16 U Benzodiazepines Scrn NEGATIVE 05/14/20 20:16 Urine Cocaine Screen NEGATIVE 05/14/20 20:16 U Marijuana (THC) Screen UNCONFIRMED POSITIVE 05/14/20 20:16 Stroke Is this a Stroke Patient?: No Acute Heart Failure - Is this a Heart Failure Patient?: No
[2020-05-15 20:03] LABS: ALBUMIN 3.1 g/dL (3.5-5.0); ALKALINE PHOSPHATASE 59 U/L (38-126); ASPARTATE AMINO TRANSFERASE 14 U/L (14-36); BILIRUBIN,TOTAL 0.3 mg/dL (0.2-1.3); BLOOD UREA NITROGEN 4 mg/dL (7-20); GLUCOSE 81 mg/dL (75-110); POTASSIUM 3.2 mmol/L (3.6-5.0); TOTAL PROTEIN 5.3 g/dL (6.3-8.2)
[2020-05-15 20:09] LABS: CARBON DIOXIDE 30 mmol/L (22-30); CHLORIDE 97 mmol/L (98-107)
[2020-05-15 20:11] LABS: ANION GAP 5 (5-19)
[2020-05-15] MEDS ORDERED: POTASSIUM CHLORIDE 10 MEQ TABLET.ER PO ONE (21:00)
[2020-05-15] MEDS ORDERED: ONDANSETRON HCL 8 MG TABLET PO SCH (22:00)
[2020-05-16] MEDS ORDERED: ONDANSETRON HCL INJ/PF 4 MG/2 ML SDV IV SCH
[2020-05-16 01:29] VITALS: BP 128/63
[2020-05-16] MEDS ORDERED: PANTOPRAZOLE SODIUM 20 MG TABLET.DR PO SCH (10:00)
[2020-05-17] MEDS ORDERED: SCOPOLAMINE HYDROBROMIDE 1.5 MG PATCH.TD72 TOP SCH (10:00)
== END 2020-05-15 23:13 | disposition home or self-care (01) ==
LOC: LC 20:10 → LR 05-15 08:04 → 2S 05-15 12:40
PROVIDERS: ADMIT Student in an Organized Health Care Education/Training Program; ATTEND Student in an Organized Health Care Education/Training Program
DX: O21.8 Other vomiting complicating pregnancy (principal); O21.0 Mild hyperemesis gravidarum; E87.6 Hypokalemia; O99.322 Drug use complicating pregnancy, second trimester; F12.988 Cannabis use, unspecified with other cannabis-induced disorder; O24.410 Gestational diabetes mellitus in pregnancy, diet controlled; O26.892 Other specified pregnancy related conditions, second trimester; R10.13 Epigastric pain; Z3A.25 25 weeks gestation of pregnancy; Z87.59 Personal history of other complications of pregnancy, childbirth and the puerperium; Z91.19 Patient's noncompliance with other medical treatment and regimen
CPT/HCPCS: 36415; 87086; 83690; 83735; 84443; 85025; 87070; 80053; 81001; 80307; 93005; 93010; 59899; G0378; G0480 ×2; J1200; J3480 ×3; J3490 ×2; J3475; J2765; J2550; J3411; J2405 ×2; J7030; 80349

== ENCOUNTER 2020-05-26 18:57 | Inpatient (IN) | payer OTHER ==
[~2020-05-26 18:57] MED LIST: NORMAL SALINE 1000 ML 1,000 ML with POTASSIUM CHLORIDE 20 MEQ, MAGNESIUM SULFATE 8 MEQ,... IV SCH
[2020-05-26] MEDS ORDERED: THIAMINE HCL INJ 200 MG/2 ML VIAL IM ONE (19:36)
[2020-05-26] MEDS ORDERED: RINGERS SOLUTION,LACTATED 1,000 ML IV ONE (19:37)
[2020-05-26] MEDS ORDERED: DEXTROSE 5%-LACTATED RINGERS 1,000 ML IV PRN (19:38)
[2020-05-26] MEDS ORDERED: SCOPOLAMINE HYDROBROMIDE 1.5 MG PATCH.TD72 TD ONE (19:38)
[2020-05-26 20:13] LABS: ABSOLUTE LYMPHOCYTES (AUTO) 1.6 10^3/uL (0.5-4.7); ABSOLUTE MONOCYTES (AUTO) 0.7 10^3/uL (0.1-1.4); ABSOLUTE NEUT (AUTO) 12.1 10^3/uL (1.7-8.2); BASOPHILS % (AUTO) 0.2 % (0-2); HEMATOCRIT 34.9 % (36.0-47.0); HEMOGLOBIN 12.4 g/dL (12.0-15.5); LYMPHOCYTES % (AUTO) 11.2 % (13-45); MEAN CORPUSCULAR HGB CONC 35.6 g/dL (32.0-36.0); MEAN CORPUSCULAR VOLUME 93 fl (80-97); MONOCYTES % (AUTO) 5.1 % (3-13); PLATELET COUNT 474 10^3/uL (150-450); RED BLOOD COUNT 3.76 10^6/uL (3.72-5.28); RED CELL DISTRIBUTION WIDTH 12.9 % (11.5-14.0); SEGMENTED NEUTROPHILS % (AUTO) 83.5 % (42-78); TOTAL CELLS COUNTED % (AUTO) 100 %; WHITE BLOOD COUNT 14.5 10^3/uL (4.0-10.5)
[2020-05-26 20:29] LABS: ALBUMIN 4.1 g/dL (3.5-5.0); ALKALINE PHOSPHATASE 78 U/L (38-126); ANION GAP 10 (5-19); ASPARTATE AMINO TRANSFERASE 15 U/L (14-36); BILIRUBIN,TOTAL 0.3 mg/dL (0.2-1.3); BLOOD UREA NITROGEN 7 mg/dL (7-20); CARBON DIOXIDE 23 mmol/L (22-30); CHLORIDE 102 mmol/L (98-107); GLUCOSE 125 mg/dL (75-110); POTASSIUM 3.5 mmol/L (3.6-5.0); TOTAL PROTEIN 6.9 g/dL (6.3-8.2)
[2020-05-26] MEDS ORDERED: THIAMINE HCL INJ 200 MG/2 ML VIAL ONE (20:43)
[2020-05-26] MEDS ORDERED: SCOPOLAMINE HYDROBROMIDE 1.5 MG PATCH.TD72 ONE (20:45)
[2020-05-26] MEDS ORDERED: PROMETHAZINE HCL INJ 25 MG/1 ML VIAL ONE (21:15)
[2020-05-26] MEDS ORDERED: MORPHINE SULFATE 10 MG/ML INJ ONE (21:16)
[2020-05-26] MEDS ORDERED: LABETALOL HCL INJ 20 MG/4 ML DISP.SYRIN IV ONE ×2 (21:25→21:31)
[2020-05-26] MEDS ORDERED: MORPHINE SULFATE 10 MG/ML INJ IV ONE (21:31)
[2020-05-26] MEDS ORDERED: PANTOPRAZOLE SODIUM 40 MG VIAL IV ONE ×2 (21:42→22:00)
[2020-05-26 22:14] LABS: URIC ACID 3.5 mg/dL (2.5-6.2)
--- NOTE | 2020-05-26 22:35 | PDOC H&P ---
History of Present Illness Admission Date/PCP: ZACKERY BORJAS MD History of Present Illness: ARTUR CHRISTOPHER is a 24 year old female at approximately 27.0 weeks EGA presenting today with nausea and vomiting with worsening abdominal pain. She reports not even able to keep medications like reglan and zofran down today. is complicated by hyperemeiss and A1GDM. She also has hx of marijuana use in . Prior complicated by Preeclampsia, A1GDM and hyperemisis Reports good FM. Reports pain as discomfort all throughout her abdomen. Denies contrations, vaginal bleeding or leaking of fluid. Past Medical History Psychiatric Medical History: Reports: Depression Social History Information Source: Patient Lives with: Family Smoking Status: Never Smoker Electronic Cigarette use?: No Frequency of Alcohol Use: None Hx Recreational Drug Use: Yes Drugs: Marijuana Hx Prescription Drug Abuse: No Family History Family History: Reviewed & Not Pertinent, Arthritis, Thyroid Disfunction Parental Family History Reviewed: Yes Children Family History Reviewed: Yes Sibling(s) Family History Reviewed.: Yes Medication/Allergy Home Medications: Metoclopramide HCl [Reglan 10 mg Tablet] 10 mg PO BIDBS 03/01/20 Ondansetron HCl [Zofran 8 mg Tablet] 8 mg PO Q8 04/20/20 Omeprazole 20 mg PO DAILY 04/30/20 Promethazine HCl [Phenergan 25 mg Supp.rect] 25 mg [place] Q4HP PRN 04/30/20 Scopolamine 1 patch TOP Q3DAYS 04/30/20 Allergies/Adverse Reactions: Penicillins Allergy (Intermediate, Verified 05/26/20 19:31) Hives Review of Systems Constitutional: ABSENT: chills, fever(s), headache(s), weight gain, weight loss Cardiovascular: ABSENT: chest pain, dyspnea on exertion, edema, orthropnea, palpitations Respiratory: ABSENT: cough, hemoptysis Gastrointestinal: PRESENT: as per HPI, abdominal pain, nausea, vomiting. ABSENT: constipation, diarrhea, hematemesis, hematochezia Genitourinary: PRESENT: other - decreased urine output Musculoskeletal: ABSENT: joint swelling Integumentary: ABSENT: rash, wounds Neurological: ABSENT: abnormal gait, abnormal speech, confusion, dizziness, focal weakness, syncope Physical Exam - Physical Exam Vital Signs: Intake & Output 05/25/20 05/26/20 05/27/20 06:59 06:59 06:59 Weight 45 kg Additional comments: General appearance: PRESENT: no acute distress, cooperative, curled up in position with sheet over her head Mouth exam: PRESENT: dry mucosa Respiratory exam: PRESENT: clear to auscultation drew Cardiovascular exam: PRESENT: RRR, +S1, +S2 Vascular exam: PRESENT: normal capillary refill GI/Abdominal exam: PRESENT: soft - NOn-tender to palpation Neurological exam: PRESENT: alert, altered, awake, oriented to person, oriented to place, oriented to time Skin exam: PRESENT: dry, warm - Obstetrical Exam Tender: No - Uterus approx 4 cm above umbilicus and non-tender Result Laboratory Results: 05/26/20 20:05 05/26/20 20:05 05/26/20 05/26/20 20:05 20:05 WBC 14.5 H RBC 3.76 Hgb 12.4 Hct 34.9 L MCV 93 MCH 33.0 MCHC 35.6 RDW 12.9 Plt Count 474 H Seg Neutrophils % 83.5 H Sodium 135.0 L Potassium 3.5 L Chloride 102 Carbon Dioxide 23 Anion Gap 10 BUN 7 Creatinine 0.46 L Est GFR ( Amer) > 60 Glucose 125 H Calcium 10.0 Total Bilirubin 0.3 AST 15 Alkaline Phosphatase 78 Total Protein 6.9 Albumin 4.1 Assessment & Plan - Plan Summary Plan Summary: 24 yo at 27 wks EGA with intractable N/v d/t hyperemesis in and further complicated by marijauna use in . Elevated b/p on admiss ion: severe at 160/98--> rule out preE -Admit to antepartum bed for observation and treatment -VS Q shift -Labs pending including pre-e labs -Call for elevated b/p > 160 systolic or diastolic >110 -UA and P:C pending -NST Cat 1, continue BID -IVFs D5NS with 20 KCL at 125 cc/hr after initial vitamin bag x1 -May have bland diet as tolerating -Scopolamine patch transdermal -Zofran 8mg Q 6 hrs prn nauesea, Phenergan 12.5 mg IV Q 8 hours for persistent n/v -Takes Reglan at home: with breakfast and dinner. Continue Reglan 10mg BID with breakfast and dinner -Out of bed as tolerated
[2020-05-26] MEDS ORDERED: PROMETHAZINE HCL INJ 25 MG/1 ML VIAL IV PRN (22:42)
[2020-05-26] MEDS ORDERED: DEXAMETHASONE SOD PHOS INJ 10 MG/1 ML VIAL IV ONE (22:43)
[2020-05-26] MEDS ORDERED: DEXTROSE 40% GEL 15 GM TUBE PO PRN ×2 (22:51)
[2020-05-26] MEDS ORDERED: GLUCAGON,HUMAN RECOMB 1 MG INJ IM PRN (22:51)
[2020-05-26] MEDS ORDERED: DEXTROSE 50%-WATER 25 GM/50 ML DISP.SYRIN IV PRN ×2 (22:51)
[2020-05-26] MEDS ORDERED: THIAMINE HCL IV SCH ×4 (23:15)
[2020-05-26] MEDS ORDERED: NS IV SCH ×4 (23:15)
[2020-05-26] MEDS ORDERED: [UNRECOGNIZED DRUG - OTHER] IV SCH ×4 (23:15)
[2020-05-26] MEDS ORDERED: POTASSI CL IV SCH ×4 (23:15)
[2020-05-26] MEDS ORDERED: MAGNESIUM SULFATE IV SCH ×4 (23:15)
[2020-05-26] MEDS ORDERED: NIFEDIPINE 30 MG TAB.ER.24 PO ONE (23:27)
[2020-05-27] MEDS ORDERED: ONDANSETRON HCL INJ/PF 4 MG/2 ML SDV ONE ×3 (00:29→08:47)
[2020-05-27] MEDS: NIFEDIPINE 30 MG TAB.ER.24 PO SCH ×2 (00:31→10:34)
[2020-05-27] MEDS ORDERED: ONDANSETRON HCL INJ/PF 4 MG/2 ML SDV IV PRN (00:46)
[2020-05-27] MEDS: POTASSI CL 20 MEQ/D5-1/2NS 1L 1,000 ML IV PRN ×2 (01:20→21:31)
[2020-05-27] MEDS: THIAMINE HCL INJ 200 MG/2 ML VIAL IM SCH ×2 (02:18→11:10)
[2020-05-27 05:38] LABS: APPEARANCE,URINE CLOUDY; BILIRUBIN,URINE NEGATIVE (NEGATIVE); COLOR,URINE YELLOW; GLUCOSE, URINE 150 mg/dL (NEGATIVE); KETONES,URINE NEGATIVE (NEGATIVE); LEUKOCYTE ESTERASE,URINE NEGATIVE (NEGATIVE); NITRITE,URINE NEGATIVE (NEGATIVE); PROTEIN,URINE 30 mg/dL (NEGATIVE); URINE SPECIFIC GRAVITY 1.024; UROBILINOGEN,URINE NEGATIVE mg/dL (<2.0)
[2020-05-27 05:49] LABS: UR PRO/CREAT RATIO RESULT 0.1 mg/mg (0.0-0.2); URINE CREATININE 89.4 mg/dL (16-327); URINE PROTEIN 7.4 mg/dL (<12)
[2020-05-27 05:53] LABS: URINE AMPHETAMINES SCREEN NEGATIVE; URINE BARBITURATES SCREEN NEGATIVE; URINE BENZODIAZEPINES SCREEN NEGATIVE; URINE COCAINE SCREEN NEGATIVE; URINE METHADONE SCREEN NEGATIVE; URINE PHENCYCLIDINE SCREEN NEGATIVE
[2020-05-27 06:02] LABS: URINE MARIJUANA (THC) SCREEN UNCONFIRMED POSITIVE
[2020-05-27] MEDS ORDERED: DEXAMETHASONE SOD PHOSPHATE INJ 4 MG/1 ML VIAL IV SCH (08:00)
[2020-05-27] MEDS: DEXTROSE 5% IV SCH ×2 (09:57→21:26)
[2020-05-27] MEDS: DEXAMETHASONE SOD PHOSPHATE IV SCH ×2 (09:57→21:26)
[2020-05-27] MEDS: WATER IV SCH ×2 (09:57→21:26)
[2020-05-27] MEDS ORDERED: [UNRECOGNIZED DRUG - OTHER] IV SCH ×4 (10:00)
[2020-05-27] MEDS ORDERED: MAGNESIUM SULFATE IV SCH ×4 (10:00)
[2020-05-27] MEDS ORDERED: THIAMINE HCL IV SCH ×4 (10:00)
[2020-05-27] MEDS ORDERED: NS IV SCH ×4 (10:00)
[2020-05-27] MEDS ORDERED: POTASSI CL IV SCH ×4 (10:00)
[2020-05-27] MEDS: HYDROXYZINE HCL INJ 50 MG/1 ML VIAL IM PRN ×2 (10:26→18:31)
--- NOTE | 2020-05-27 10:48 | PDOC PROGRESS REPORT ---
Subjective Progress Note for:: 05/27/20 Subjective:: patient continuiing to complain of abdominal pain that "feels like acid stuck and wanting to come up" Indicates that the pain is epigastric and radiates upward consistent with reflux type pain. Reason For Visit: Physical Exam - Physical Exam Vital Signs: Intake & Output 05/26/20 05/27/20 05/28/20 06:59 06:59 06:59 Weight 45 kg General appearance: PRESENT: cooperative, mild distress, thin GI/Abdominal exam: PRESENT: soft - gravid abdomen consistent with 27 week gestation. Result Laboratory Results: 05/26/20 20:05 05/26/20 20:05 05/26/20 05/26/20 05/26/20 20:05 20:05 20:05 WBC 14.5 H RBC 3.76 Hgb 12.4 Hct 34.9 L MCV 93 MCH 33.0 MCHC 35.6 RDW 12.9 Plt Count 474 H Seg Neutrophils % 83.5 H Sodium 135.0 L Potassium 3.5 L Chloride 102 Carbon Dioxide 23 Anion Gap 10 BUN 7 Creatinine 0.46 L Est GFR ( Amer) > 60 Glucose 125 H Uric Acid 3.5 Calcium 10.0 Total Bilirubin 0.3 AST 15 Alkaline Phosphatase 78 Total Protein 6.9 Albumin 4.1 Urine Color Urine Appearance Urine pH Ur Specific [place] Urine Protein Urine Glucose (UA) Urine Ketones Urine Blood Urine Nitrite Ur Leukocyte Esterase Urine WBC (Auto) Urine RBC (Auto) 05/27/20 05:10 WBC RBC Hgb Hct MCV MCH MCHC RDW Plt Count Seg Neutrophils % Sodium Potassium Chloride Carbon Dioxide Anion Gap BUN Creatinine Est GFR ( Amer) Glucose Uric Acid Calcium Total Bilirubin AST Alkaline Phosphatase Total Protein Albumin Urine Color YELLOW Urine Appearance CLOUDY Urine pH 9.0 Ur Specific [place] 1.024 Urine Protein 30 H Urine Glucose (UA) 150 H Urine Ketones NEGATIVE Urine Blood NEGATIVE Urine Nitrite NEGATIVE Ur Leukocyte Esterase NEGATIVE Urine WBC (Auto) 4 Urine RBC (Auto) 3 Assessment & Plan - Diagnosis (1) Cannabinoid hyperemesis syndrome Is this a current diagnosis for this admission?: Yes (2) Hyperemesis gravidarum Is this a current diagnosis for this admission?: Yes (3) Hypokalemia Is this a current diagnosis for this admission?: Yes (4) Hyponatremia Is this a current diagnosis for this admission?: Yes - Time Time Spent with patient: Less than 15 minutes Medications reviewed and adjusted accordingly: Yes Anticipated discharge: Home Within: within 48 hours - Inpatient Certification Based on my medical assessment, after consideration of the patient's comorbidities, presenting symptoms, or acuity I expect that the services needed warrant INPATIENT care.: Yes I certify that my determination is in accordance with my understanding of Medicare's requirements for reasonable and necessary INPATIENT services [42 CFR 412.3e].: Yes Medical Necessity: Failure to Improve With Outpatient Therapy - Plan Summary Plan Summary: patient well known to me from previous admissions. I am concerned that based on the patients previous behavior and her behavior with this admission that there could be a withdrawl syndrome of some type going on. She has been positive for THC on each admission and with this admission she was positive for opiods (however this was after the administration of a dose of morphine.) I am initiating some measures that will hopefully treat those concerns as the patients anxiety seems to be a factor in her management. However, must use caution due to her therefore will try to avoid opiods or benzos. I am also going to agressively treat for GERD as her complaints this morning and her exam are also consistent with this diagnosis. her PreE workup is negative and she seems to have elevated pressures only when she is agitated with her pain.
[2020-05-27] MEDS: PANTOPRAZOLE SODIUM 40 MG VIAL IV SCH ×2 (10:54→21:30)
[2020-05-27] MEDS ORDERED: CLONIDINE 0.1 MG/24 HR PATCH.TDWK TD SCH (11:00)
[2020-05-27] MEDS: NORMAL SALINE 1000 ML 1,000 ML with POTASSIUM CHLORIDE 20 MEQ, MAGNESIUM SULFATE 8 MEQ,... IV SCH ×5 (11:05)
--- NOTE | 2020-05-27 11:07 | RADIOLOGY REPORT (SQ) ---
EXAM DESCRIPTION: U/S OB LIMITED IMAGES COMPLETED DATE/TIME: 05/27/2020 10:22 am REASON FOR STUDY: EFW COMPARISON: 04/06/2020 TECHNIQUE: Limited transabdominal grayscale ultrasound for evaluation of specific requested obstetri sammie parameters. LIMITATIONS: None. FINDINGS: CERVICAL LENGTH: 3.4 cm. Closed. APARNA: Not assessed. FHR: 140 beats per minute. PLACENTA: Not assessed ANATOMY: Not assessed OTHER: Estimated gestational age is 26 weeks 0 days. Estimated weight is 862 g. IMPRESSION: LIMITED OBSTETRICAL ULTRASOUND WITH MEASURED PARAMETERS DELINEATED ABOVE. Trimester of : Second trimester - 13 weeks 1 day to 27 weeks 6 days. TECHNICAL DOCUMENTATION: JOB ID: [id number] 2010 [employer]- All Rights Reserved Reading location - IP/workstation name: [email or web address]
[2020-05-27] MEDS ORDERED: METOCLOPRAMIDE HCL INJ/PF 10 MG/2 ML SDV ONE (11:41)
[2020-05-27] MEDS ORDERED: FAMOTIDINE INJ/PF 20 MG/2 ML SDV IV ONE (11:41)
[2020-05-27] MEDS: METOCLOPRAMIDE HCL INJ/PF 10 MG/2 ML SDV IV SCH ×2 (11:44→18:21)
[2020-05-27] MEDS: FAMOTIDINE INJ/PF 20 MG/2 ML SDV IV SCH (11:44)
[2020-05-28] MEDS: METOCLOPRAMIDE HCL INJ/PF 10 MG/2 ML SDV IV SCH ×5 (00:58→23:08)
[2020-05-28] MEDS: POTASSI CL 20 MEQ/D5-1/2NS 1L 1,000 ML IV PRN (06:22)
[2020-05-28] MEDS: DEXAMETHASONE SOD PHOSPHATE IV SCH (08:51)
[2020-05-28] MEDS: DEXTROSE 5% IV SCH (08:51)
[2020-05-28] MEDS: WATER IV SCH (08:51)
[2020-05-28 09:00] LABS: HEMATOCRIT 26.1 % (36.0-47.0); MEAN CORPUSCULAR HEMOGLOBIN 33.7 pg (27.0-33.4); MEAN CORPUSCULAR HGB CONC 35.2 g/dL (32.0-36.0); MEAN CORPUSCULAR VOLUME 96 fl (80-97); PLATELET COUNT 311 10^3/uL (150-450); RED BLOOD COUNT 2.73 10^6/uL (3.72-5.28); RED CELL DISTRIBUTION WIDTH 13.1 % (11.5-14.0); WHITE BLOOD COUNT 7.3 10^3/uL (4.0-10.5)
[2020-05-28 09:10] LABS: HEMOGLOBIN 9.2 g/dL (12.0-15.5)
[2020-05-28 09:31] LABS: ALBUMIN 2.9 g/dL (3.5-5.0); ALKALINE PHOSPHATASE 54 U/L (38-126); ASPARTATE AMINO TRANSFERASE 20 U/L (14-36); BILIRUBIN,TOTAL 0.3 mg/dL (0.2-1.3); BLOOD UREA NITROGEN 3 mg/dL (7-20); CALCIUM 8.6 mg/dL (8.4-10.2); CARBON DIOXIDE 24 mmol/L (22-30); CHLORIDE 104 mmol/L (98-107); GLUCOSE 95 mg/dL (75-110); POTASSIUM 3.9 mmol/L (3.6-5.0); TOTAL PROTEIN 5.4 g/dL (6.3-8.2)
[2020-05-28 09:32] LABS: ANION GAP 4 (5-19)
[2020-05-28] MEDS ORDERED: DEXAMETHASONE SOD PHOSPHATE INJ 4 MG/1 ML VIAL IV SCH (10:00)
[2020-05-28] MEDS: THIAMINE HCL INJ 200 MG/2 ML VIAL IM SCH (10:26)
[2020-05-28] MEDS: PANTOPRAZOLE SODIUM 40 MG VIAL IV SCH ×2 (10:31→23:08)
[2020-05-28] MEDS: NORMAL SALINE 1000 ML 1,000 ML with POTASSIUM CHLORIDE 20 MEQ, MAGNESIUM SULFATE 8 MEQ,... IV SCH ×5 (10:39)
[2020-05-28] MEDS: NIFEDIPINE 30 MG TAB.ER.24 PO SCH (11:03)
[2020-05-28] MEDS ORDERED: NORMAL SALINE 1000 ML 1,000 ML with THIAMINE HCL 100 MG, MVI, ADULT NO.1 WITH VIT K 10 ... IV ONE ×4 (12:04)
[2020-05-28] MEDS: FAMOTIDINE INJ/PF 20 MG/2 ML SDV IV SCH (12:13)
--- NOTE | 2020-05-28 17:52 | PDOC PROGRESS REPORT ---
Subjective Progress Note for:: 05/28/20 Subjective:: feeling better, tolerated po clears at lunch and breakfast. Reason For Visit: ,HYOERNESIS CANNIBINOID Physical Exam - Physical Exam Vital Signs: Temp Pulse Resp BP Pulse Ox 97.9 F 87 20 109/41 L 99 05/28/20 12:30 05/28/20 12:30 05/28/20 12:30 05/28/20 12:30 05/28/20 12:30 Intake & Output 05/27/20 05/28/20 05/29/20 06:59 06:59 06:59 Intake Total 240 3263 Balance 240 3263 Weight 45 kg 46.1 kg General appearance: PRESENT: no acute distress, well-developed, well-nourished Head exam: PRESENT: atraumatic, normocephalic Respiratory exam: PRESENT: clear to auscultation drew, symmetrical, unlabored Cardiovascular exam: PRESENT: RRR. ABSENT: diastolic murmur, rubs, systolic murmur GI/Abdominal exam: PRESENT: normal bowel sounds, soft. ABSENT: distended, guarding, mass, organolmegaly, rebound, tenderness Rectal exam: PRESENT: deferred Extremities exam: PRESENT: full ROM. ABSENT: calf tenderness, clubbing, pedal edema Musculoskeletal exam: PRESENT: ambulatory Neurological exam: PRESENT: alert, awake, oriented to person, oriented to place, oriented to time, oriented to situation, CN II-XII grossly intact. ABSENT: motor sensory deficit Result Laboratory Results: 05/28/20 08:27 05/28/20 08:27 05/28/20 05/28/20 08:27 08:27 WBC 7.3 RBC 2.73 L Hgb 9.2 L D Hct 26.1 L MCV 96 MCH 33.7 H MCHC 35.2 RDW 13.1 Plt Count 311 Sodium 132.2 L Potassium 3.9 Chloride 104 Carbon Dioxide 24 Anion Gap 4 L BUN 3 L Creatinine 0.38 L Est GFR ( Amer) > 60 Glucose 95 Calcium 8.6 Total Bilirubin 0.3 AST 20 Alkaline Phosphatase 54 Total Protein 5.4 L Albumin 2.9 L Impressions: Obstetrics Ultrasound 05/27/20 00:00 IMPRESSION: LIMITED OBSTETRICAL ULTRASOUND WITH MEASURED PARAMETERS DELINEATED ABOVE. Trimester of : Second trimester - 13 weeks 1 day to 27 weeks 6 days. Assessment & Plan - Diagnosis (1) Cannabinoid hyperemesis syndrome Is this a current diagnosis for this admission?: Yes Plan: doing well. advance diet to regular. If doing well in am. will likely be ok to go home. Reviewed THC use again. She is aware of its impact on her health and risks of preg. (2) Hypokalemia Is this a current diagnosis for this admission?: No (3) Hyponatremia Is this a current diagnosis for this admission?: No - Time Time Spent with patient: Less than 15 minutes Medications reviewed and adjusted accordingly: Yes Anticipated discharge: Home Within: within 24 hours
[2020-05-29] MEDS: POTASSI CL 20 MEQ/D5-1/2NS 1L 1,000 ML IV PRN (03:24)
[2020-05-29] MEDS: METOCLOPRAMIDE HCL INJ/PF 10 MG/2 ML SDV IV SCH (05:22)
[2020-05-29 08:53] LABS: HEMATOCRIT 26.5 % (36.0-47.0); HEMOGLOBIN 9.4 g/dL (12.0-15.5); MEAN CORPUSCULAR HEMOGLOBIN 33.8 pg (27.0-33.4); MEAN CORPUSCULAR HGB CONC 35.4 g/dL (32.0-36.0); MEAN CORPUSCULAR VOLUME 96 fl (80-97); PLATELET COUNT 285 10^3/uL (150-450); RED BLOOD COUNT 2.77 10^6/uL (3.72-5.28); RED CELL DISTRIBUTION WIDTH 13.2 % (11.5-14.0); WHITE BLOOD COUNT 6.5 10^3/uL (4.0-10.5)
--- NOTE | 2020-05-29 09:04 | PDOC PROGRESS REPORT ---
Subjective-OB Progress Note for:: 05/29/20 Subjective: Doing alot better today, moving to [place] tonight, eating and drinking, feels fine Physical Exam (OB) Vital Signs: Temp Pulse Resp BP Pulse Ox 97.9 F 76 16 114/54 L 100 05/29/20 07:31 05/29/20 07:31 05/29/20 07:31 05/29/20 07:31 05/29/20 07:31 Intake & Output 05/28/20 05/29/20 05/30/20 06:59 06:59 06:59 Intake Total 3263 1240 Balance 3263 1240 Weight 46.1 kg 45.3 kg - Abdomen Hernia Present: No Objective-Diagnostic Laboratory: 05/29/20 08:09 05/28/20 05/28/20 05/29/20 08:27 08:27 08:09 WBC 7.3 6.5 RBC 2.73 L 2.77 L Hgb 9.2 L D 9.4 L Hct 26.1 L 26.5 L MCV 96 96 MCH 33.7 H 33.8 H MCHC 35.2 35.4 RDW 13.1 13.2 Plt Count 311 285 Sodium 132.2 L Potassium 3.9 Chloride 104 Carbon Dioxide 24 Anion Gap 4 L BUN 3 L Creatinine 0.38 L Est GFR ( Amer) > 60 Glucose 95 Calcium 8.6 Total Bilirubin 0.3 AST 20 Alkaline Phosphatase 54 Total Protein 5.4 L Albumin 2.9 L Assessment and Plan(PN) - Assessment and Plan (1) Cannabinoid hyperemesis syndrome Is this a current diagnosis for this admission?: Yes (2) Hyperemesis gravidarum Is this a current diagnosis for this admission?: Yes (3) Hypokalemia Is this a current diagnosis for this admission?: No (4) Hyponatremia Is this a current diagnosis for this admission?: No - Time Spent with Patient Time with patient: Less than 15 minutes Medications reviewed and adjusted accordingly: Yes - Disposition Anticipated Discharge: Home Within: within 24 hours
--- NOTE | 2020-05-29 09:12 | PDOC DISCHARGE SUMMARY ---
Impression - Admit/DC Date/PCP Admission Date/Primary Care Provider: 05/26/20 22:52 ZACKERY BORJAS MD Discharge Date: 05/29/20 - Discharge Diagnosis (1) Cannabinoid hyperemesis syndrome Is this a current diagnosis for this admission?: Yes (2) Hyperemesis gravidarum Is this a current diagnosis for this admission?: Yes (3) Hypokalemia Is this a current diagnosis for this admission?: No (4) Hyponatremia Is this a current diagnosis for this admission?: No - Additional Information Resuscitation Status: Full Code Discharge Diet: As Tolerated, Regular Discharge Activity: Activity As Tolerated Referrals: ZACKERY BORJAS MD [Primary Care Provider] - (f/u in [place]) Prescriptions: Nifedipine [Procardia XL 30 mg Tablet] 30 mg PO DAILY #30 tab.er.24 Home Medications: Metoclopramide HCl [Reglan 10 mg Tablet] 10 mg PO BIDBS 03/01/20 Ondansetron HCl [Zofran 8 mg Tablet] 8 mg PO Q8 04/20/20 Omeprazole 20 mg PO DAILY 04/30/20 Promethazine HCl [Phenergan 25 mg Supp.rect] 25 mg [place] Q4HP PRN 04/30/20 Scopolamine 1 patch TOP Q3DAYS 04/30/20 Nifedipine [Procardia XL 30 mg Tablet] 30 mg PO DAILY #30 tab.er.24 05/29/20 History of Present Illiness History of Present Illness: ARTUR CHRISTOPHER is a 24 year old female Physical Exam - Physical Exam Vital Signs: Temp Pulse Resp BP Pulse Ox 97.9 F 76 16 114/54 L 100 05/29/20 07:31 05/29/20 07:31 05/29/20 07:31 05/29/20 07:31 05/29/20 07:31 Intake & Output 05/28/20 05/29/20 05/30/20 06:59 06:59 06:59 Intake Total 3263 1240 Balance 3263 1240 Weight 46.1 kg 45.3 kg Results Laboratory Results: WBC 6.5 10^3/uL (4.0-10.5) 05/29/20 08:09 RBC 2.77 10^6/uL (3.72-5.28) L 05/29/20 08:09 Hgb 9.4 g/dL (12.0-15.5) L 05/29/20 08:09 Hct 26.5 % (36.0-47.0) L 05/29/20 08:09 MCV 96 fl (80-97) 05/29/20 08:09 MCH 33.8 pg (27.0-33.4) H 05/29/20 08:09 MCHC 35.4 g/dL (32.0-36.0) 05/29/20 08:09 RDW 13.2 % (11.5-14.0) 05/29/20 08:09 Plt Count 285 10^3/uL (150-450) 05/29/20 08:09 Lymph % (Auto) 11.2 % (13-45) L 05/26/20 20:05 [place] % (Auto) 5.1 % (3-13) 05/26/20 20:05 Eos % (Auto) 0.0 % (0-6) 05/26/20 20:05 Baso % (Auto) 0.2 % (0-2) 05/26/20 20:05 Absolute Neuts (auto) 12.1 10^3/uL (1.7-8.2) H 05/26/20 20:05 Absolute Lymphs (auto) 1.6 10^3/uL (0.5-4.7) 05/26/20 20:05 Absolute Monos (auto) 0.7 10^3/uL (0.1-1.4) 05/26/20 20:05 Absolute Eos (auto) 0.0 10^3/uL (0.0-0.6) 05/26/20 20:05 Absolute Basos (auto) 0.0 10^3/uL (0.0-0.2) 05/26/20 20:05 Seg Neutrophils % 83.5 % (42-78) H 05/26/20 20:05 Sodium 132.2 mmol/L (137-145) L 05/28/20 08:27 Potassium 3.9 mmol/L (3.6-5.0) 05/28/20 08:27 Chloride 104 mmol/L (98-107) 05/28/20 08:27 Carbon Dioxide 24 mmol/L (22-30) 05/28/20 08:27 Anion Gap 4 (5-19) L 05/28/20 08:27 BUN 3 mg/dL (7-20) L 05/28/20 08:27 Creatinine 0.38 mg/dL (0.52-1.25) L 05/28/20 08:27 Est GFR ( Amer) > 60 (>60) 05/28/20 08:27 Est GFR (MDRD) Non-Af > 60 (>60) 05/28/20 08:27 Glucose 95 mg/dL (75-110) 05/28/20 08:27 POC Glucose 95 mg/dL (70-110) 05/29/20 07:19 Uric Acid 3.5 mg/dL (2.5-6.2) 05/26/20 20:05 Calcium 8.6 mg/dL (8.4-10.2) 05/28/20 08:27 Total Bilirubin 0.3 mg/dL (0.2-1.3) 05/28/20 08:27 Direct Bilirubin 0.0 mg/dL (0.0-0.4) 05/28/20 08:27 Neonat Total Bilirubin Not Reportable 05/28/20 08:27 Neonat Direct Bilirubin Not Reportable 05/28/20 08:27 Neonat Indirect Bili Not Reportable 05/28/20 08:27 AST 20 U/L (14-36) 05/28/20 08:27 ALT 8 U/L (<35) 05/28/20 08:27 Alkaline Phosphatase 54 U/L (38-126) 05/28/20 08:27 Lactate Dehydrogenase 139 U/L (120-246) 05/26/20 20:05 Total Protein 5.4 g/dL (6.3-8.2) L 05/28/20 08:27 Albumin 2.9 g/dL (3.5-5.0) L 05/28/20 08:27 Urine Color YELLOW 05/27/20 05:10 Urine Appearance CLOUDY 05/27/20 05:10 Urine pH 9.0 (5.0-9.0) 05/27/20 05:10 Ur Specific [place] 1.024 05/27/20 05:10 Urine Protein 30 mg/dL (NEGATIVE) H 05/27/20 05:10 Urine Glucose (UA) 150 mg/dL (NEGATIVE) H 05/27/20 05:10 Urine Ketones NEGATIVE mg/dL (NEGATIVE) 05/27/20 05:10 Urine Blood NEGATIVE (NEGATIVE) 05/27/20 05:10 Urine Nitrite NEGATIVE (NEGATIVE) 05/27/20 05:10 Urine Bilirubin NEGATIVE (NEGATIVE) 05/27/20 05:10 Urine Urobilinogen NEGATIVE mg/dL (<2.0) 05/27/20 05:10 Ur Leukocyte Esterase NEGATIVE (NEGATIVE) 05/27/20 05:10 Urine WBC (Auto) 4 /HPF 05/27/20 05:10 Urine RBC (Auto) 3 /HPF 05/27/20 05:10 Urine Bacteria (Auto) 1+ /HPF 05/27/20 05:10 Squamous Epi Cells Auto 1 /HPF 05/27/20 05:10 Urine Mucus (Auto) OCC /LPF 05/27/20 05:10 Urine Yeast (Budding) PRESENT /HPF 05/27/20 05:10 Urine Creatinine 89.4 mg/dL (16-327) 05/27/20 05:10 Protein/Creatinin Ratio 0.1 mg/mg (0.0-0.2) 05/27/20 05:10 Urine Total Protein 7.4 mg/dL (<12) 05/27/20 05:10 Urine Ascorbic Acid NEGATIVE (NEGATIVE) 05/27/20 05:10 Urine Opiates Screen UNCONFIRMED POSITIVE 05/27/20 05:10 Urine Methadone Screen NEGATIVE 05/27/20 05:10 Ur Barbiturates Screen NEGATIVE 05/27/20 05:10 Ur Phencyclidine Scrn NEGATIVE 05/27/20 05:10 Ur Amphetamines Screen NEGATIVE 05/27/20 05:10 U Benzodiazepines Scrn NEGATIVE 05/27/20 05:10 Urine Cocaine Screen NEGATIVE 05/27/20 05:10 U Marijuana (THC) Screen UNCONFIRMED POSITIVE 05/27/20 05:10 Impressions: Obstetrics Ultrasound 05/27/20 00:00 IMPRESSION: LIMITED OBSTETRICAL ULTRASOUND WITH MEASURED PARAMETERS DELINEATED ABOVE. Trimester of : Second trimester - 13 weeks 1 day to 27 weeks 6 days. Stroke Is this a Stroke Patient?: No Acute Heart Failure - Is this a Heart Failure Patient?: No
[2020-05-29 09:17] LABS: ALBUMIN 2.9 g/dL (3.5-5.0); ALKALINE PHOSPHATASE 55 U/L (38-126); ASPARTATE AMINO TRANSFERASE 20 U/L (14-36); BILIRUBIN,TOTAL 0.2 mg/dL (0.2-1.3); BLOOD UREA NITROGEN 2 mg/dL (7-20); CALCIUM 8.7 mg/dL (8.4-10.2); CARBON DIOXIDE 23 mmol/L (22-30); GLUCOSE 82 mg/dL (75-110); POTASSIUM 3.9 mmol/L (3.6-5.0); TOTAL PROTEIN 5.4 g/dL (6.3-8.2)
[2020-05-29 09:22] LABS: ANION GAP 5 (5-19); CHLORIDE 105 mmol/L (98-107)
[2020-05-29] MEDS: PANTOPRAZOLE SODIUM 40 MG VIAL IV SCH (09:42)
[2020-05-29 10:33] VITALS: BP 117/53
[2020-05-31] MEDS ORDERED: CLONIDINE 0.1 MG/24 HR PATCH.TDWK TD SCH (10:00)
== END 2020-05-29 10:25 | disposition home or self-care (01) | DRG 832 ==
LOC: LC 18:57 → LR 22:35 → UNDOADMOB 22:52 → INTOOBSV 22:52 → LR 22:52 → OBSVTOIN 22:52 → 2S 05-27 16:15 → LR 05-27 16:15
PROVIDERS: ADMIT Obstetrics & Gynecology; ATTEND Obstetrics & Gynecology
DX: O21.1 Hyperemesis gravidarum with metabolic disturbance (principal); O99.322 Drug use complicating pregnancy, second trimester; O24.410 Gestational diabetes mellitus in pregnancy, diet controlled; F12.90 Cannabis use, unspecified, uncomplicated; Z3A.27 27 weeks gestation of pregnancy
CPT/HCPCS: 36415; 76815; 80053; 80307; 81001; 82570; 82962; 83615; 84156; 84550; 85025; 85027; C9113; J1100; J2270; J2405; J2550; J2765; J3410; J3411; J3475; J3480; J3490; J7030; J7060; S0028